=== PATIENT | male | born 1945 | race Caucasian/White ===

== ENCOUNTER 2019-06-05 07:41 | Outpatient (CLI) | payer MEDICARE, OTHER | END 2019-06-05 07:42 | disposition critical access hospital (66) | LOC: EMS 07:41 | PROVIDERS: ATTEND Surgery | DX: R41.0 Disorientation, unspecified (principal) | CPT/HCPCS: A0425; A0429 ==

== ENCOUNTER 2019-06-05 08:22 | Observation (INO) | payer MEDICARE, OTHER ==
[2019-06-05] MEDS ORDERED: SODIUM CHLORIDE 0.9% 1,000 ML IV ONE (08:39)
[2019-06-05] MEDS ORDERED: LORazepam 2 MG/ML VIAL IVP STA (08:40)
[2019-06-05] MEDS ORDERED: FOLIC ACID INJ 1 MG, THIAMINE INJ 100 MG, MAGNESIUM SULFATE 2 GM, MULTIVITAMIN 10 ML in... IV STA ×10 (08:41→08:42)
--- NOTE | 2019-06-05 08:43 | ED Physician Documentation ---
PD HPI ALTERED MENTAL STATUS - Stated complaint Stated Complaint: ETOH/MHE - Chief complaint Chief Complaint: General - History obtained from History obtained from: Patient, EMS - History of Present Illness Timing - onset: Today (Apparently was confused and reportedly found down on the sidewalk by neighbors who helped him into his house. He did seem confused and so they called EMS. Bruise on the left cheek. He denied headache. Seems a little shaky.) Timing - details: Still present, Other (unknown onset) Quality / character: Confused, Disoriented Associated symptoms: No: Fever, Headache, Focal weakness Contributing factors: Substance abuse (reportedly history of alcohol use regularly, goes to store on his own.). No: Anticoagulated Basline status: Alert and oriented X 3, Ambulatory (Reportedly has a normal baseline according to his sister and that he is able to walk to the store himself and by alcohol and groceries. He is not very good at taking care of himself at home and eats poorly. 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 Recently seen: Not recently seen Review of Systems Unable to obtain: Confused Constitutional: denies: Fever Cardiac: denies: Chest pain / pressure Respiratory: denies: Dyspnea GI: denies: Abdominal Pain, Vomiting, Diarrhea Neurologic: denies: Focal weakness, Headache Psychiatric: denies: Depressed PD PAST MEDICAL HISTORY - Past Medical History Cardiovascular: None Respiratory: None - Present Medications Home Medications: Ambulatory Orders Medication Instructions Recorded Confirmed No Known Home Medications 06/05/19 06/05/19 - Allergies Allergies/Adverse Reactions: Allergies Allergy/AdvReac Type Severity Reaction Status Date / Time No Known Drug Allergies Allergy Verified 06/05/19 08:35 - Living Situation Living Situation: reports: Alone, Other (He has 2 sisters that live nearby and try to help him out with groceries and cleaning the house.) Living Arrangement: reports: At home - Social History Does the pt smoke?: Yes Smoking Status: Current every day smoker Does the pt drink ETOH?: Yes ETOH Use: Other (He drinks very consistently. His sister says he will try to stop drinking intermittently and does get withdrawal and hallucinations. He has not been confused like this to this degree) Does the pt have substance abuse?: No - Family History Family history: reports: Non contributory PD ED PE NORMAL - General General: No acute distress. No: Alert and oriented X 3 (Alert and conversant. He had to think about his date of but did get it right. He initially did not know where he lives in which town but then could tell me his address and that he had lived there for 12 years. He is not sure of the day of the week but did realize it was May.), Well developed/nourished (somewhat frail) - HEENT HEENT: Ears normal, Pharynx benign, Other (There is no bruising on the head but there is some purple ecchymosis in the left periorbital area. No apparent injury to the eye.). No: Moist mucous membranes - Neck Neck: Supple, no meningeal sign, No bony TTP, No adenopathy - Cardiac Cardiac: RRR (regular but tachycardic), No murmur - Respiratory Respiratory: Clear bilaterally - Abdomen Abdomen: Soft, Non tender, Non distended, No organomegaly - Derm Derm: Normal color, Warm and dry - Extremities Extremities: Normal ROM s pain, No edema, No calf tenderness / cord - Neuro Neuro: No motor deficit, No sensory deficit, Normal speech, Other (He does have shakiness diffusely which seems more apparent when he is lifting up his arms.) Results - Vitals Vitals: Vital Signs - 24 hr 06/05/19 06/05/19 06/05/19 08:22 09:00 09:30 Temperature 37.0 C Heart Rate 108 H 97 96 Respiratory 15 18 19 Rate Blood Pressure 144/98 H 127/91 H 126/72 O2 Saturation 99 99 97 06/05/19 06/05/19 06/05/19 10:00 10:30 11:00 Temperature Heart Rate 96 103 H 94 Respiratory 25 H 21 19 Rate Blood Pressure 119/72 112/69 129/70 O2 Saturation 100 99 98 06/05/19 06/05/19 06/05/19 11:30 12:00 12:30 Temperature Heart Rate 94 91 87 Respiratory 18 17 15 Rate Blood Pressure 112/70 116/91 H 104/60 O2 Saturation 97 95 98 06/05/19 06/05/19 06/05/19 13:00 13:30 14:00 Temperature Heart Rate 87 86 85 Respiratory 16 16 18 Rate Blood Pressure 91/68 110/70 117/80 O2 Saturation 98 98 98 Oxygen O2 Source Room air - Labs Labs: Laboratory Tests 06/05/19 06/05/19 06/05/19 08:35 08:35 08:35 WBC 7.0 RBC 4.46 L Hgb 12.1 L Hct 37.4 L MCV 83.9 MCH 27.1 MCHC 32.4 RDW 19.1 H Plt Count 228 MPV 10.7 Neut # (Auto) 6.2 Lymph # (Auto) 0.2 L [place] # (Auto) 0.5 Eos # (Auto) 0.0 Baso # (Auto) 0.0 Absolute Nucleated RBC 0.00 Nucleated RBC % 0.0 Sodium 137 Potassium 3.7 Chloride 102 Carbon Dioxide 20 L Anion Gap 15.0 H BUN 29 H Creatinine 0.9 Estimated GFR (MDRD) 82 L Glucose 105 H Calcium 9.3 Magnesium 2.0 Total Bilirubin 1.8 H AST 55 H ALT 30 Alkaline Phosphatase 59 Total Creatine Kinase 344 H Total Protein 8.3 H Albumin 4.2 Globulin 4.1 Albumin/Globulin Ratio 1.0 Lipase 40 Vitamin B12 187 Urine Color Urine Clarity Urine pH Ur Specific [place] Urine Protein Urine Glucose (UA) Urine Ketones Urine Occult Blood Urine Nitrite Urine Bilirubin Urine Urobilinogen Ur Leukocyte Esterase Ur Microscopic Review Urine Culture Comments Salicylates < 6.0 Urine Opiates Screen Ur Oxycodone Screen Urine Methadone Screen Ur Propoxyphene Screen Acetaminophen < 10 L Ur Barbiturates Screen Ur Tricyclics Screen Ur Phencyclidine Scrn Ur Amphetamine Screen U Methamphetamines Scrn U Benzodiazepines Scrn Urine Cocaine Screen U Cannabinoids Screen Ethyl Alcohol < 5.0 06/05/19 11:53 WBC RBC Hgb Hct MCV MCH MCHC RDW Plt Count MPV Neut # (Auto) Lymph # (Auto) [place] # (Auto) Eos # (Auto) Baso # (Auto) Absolute Nucleated RBC Nucleated RBC % Sodium Potassium Chloride Carbon Dioxide Anion Gap BUN Creatinine Estimated GFR (MDRD) Glucose Calcium Magnesium Total Bilirubin AST ALT Alkaline Phosphatase Total Creatine Kinase Total Protein Albumin Globulin Albumin/Globulin Ratio Lipase Vitamin B12 Urine Color YELLOW Urine Clarity CLEAR Urine pH 5.0 Ur Specific [place] >=1.030 H Urine Protein NEGATIVE Urine Glucose (UA) NEGATIVE Urine Ketones 40 H Urine Occult Blood NEGATIVE Urine Nitrite NEGATIVE Urine Bilirubin NEGATIVE Urine Urobilinogen 0.2 (NORMAL) Ur Leukocyte Esterase NEGATIVE Ur Microscopic Review NOT INDICATED Urine Culture Comments NOT INDICATED Salicylates Urine Opiates Screen NEGATIVE Ur Oxycodone Screen NEGATIVE Urine Methadone Screen NEGATIVE Ur Propoxyphene Screen NEGATIVE Acetaminophen Ur Barbiturates Screen NEGATIVE Ur Tricyclics Screen NEGATIVE Ur Phencyclidine Scrn NEGATIVE Ur Amphetamine Screen NEGATIVE U Methamphetamines Scrn NEGATIVE U Benzodiazepines Scrn POSITIVE H Urine Cocaine Screen NEGATIVE U Cannabinoids Screen NEGATIVE Ethyl Alcohol PD MEDICAL DECISION MAKING - ED course Complexity details: re-evaluated patient (He still seems somewhat confused but with less shakiness and his heart rate is improved. Unable to tell me recent events and is confused on his date of and thinks it is . ), considered differential (He does have a history of alcoholism and fairly regular alcohol use. His sister talking with social work states that he has had hallucinations in the past with alcohol withdrawal. He does seem shaky and confused now and his alcohol level is 0. I think he is having some alcohol withdrawal delirium. He was given IV fluids for hydration and multivitamin and some Ativan for the shakiness.), d/w patient ED course: Presume some element of alcohol withdrawal delirium. He does have a bruise on his face with a normal face and head CT scan but consider some concussive effect as well. At this point he is still quite confused and disoriented to place and time. He does not seem safe for self-care and I would still consider other organic etiologies for the altered mental status. Vascular etiology is still consideration. Further evaluation may be warranted. Departure - Departure Disposition: ED Place in Observation Clinical Impression: Confusion, Dehydration Altered mental status Qualifiers: Altered mental status type: delirium Qualified Code(s): R41.0 - Disorientation, unspecified Condition: Stable Record reviewed to determine appropriate education?: Yes Discharge Date/Time: 06/05/19 14:58
[2019-06-05 08:55] LABS: BASOPHILS % (AUTO) 0.3 %; HGB - HEMOGLOBIN 12.1 g/dL (14.0-18.0); LYMPHOCYTES # (AUTO) 0.2 10^3/uL (1.5-3.5); MEAN CORPUSCULAR HEMOGLOBIN 27.1 pg (27.0-31.0); MEAN CORPUSCULAR HGB CONC 32.4 g/dL (32.0-36.0); MEAN CORPUSCULAR VOLUME 83.9 fL (80.0-94.0); MEAN PLATELET VOLUME 10.7 fL (7.4-11.4); MONOCYTES # (AUTO) 0.5 10^3/uL (0.0-1.0); MONOCYTES % (AUTO) 7.7 %; NEUTROPHILS # (AUTO) 6.2 10^3/uL (1.5-6.6); NEUTROPHILS % (AUTO) 88.4 %; PLT - PLATELET COUNT 228 10^3/uL (130-450); RED BLOOD COUNT 4.46 10^6/uL (4.70-6.10); RED CELL DISTRIBUTION WIDTH 19.1 % (12.0-15.0)
[2019-06-05 09:12] LABS: ACETAMINOPHEN < 10 ug/mL (10-30); ALBUMIN 4.2 g/dL (3.2-5.5); ALKALINE PHOSPHATASE 59 IU/L (42-121); ALT ALANINE AMINOTRANSFERASE 30 IU/L (10-60); AST ASPARTATE AMINOTRANSFERASE 55 IU/L (10-42); BILIRUBIN,TOTAL 1.8 mg/dL (0.2-1.0); BUN - BLOOD UREA NITROGEN 29 mg/dL (6-20); CALCIUM 9.3 mg/dL (8.5-10.3); CARBON DIOXIDE - CO2 20 mmol/L (21-32); CHLORIDE 102 mmol/L (101-111); CK- CREATINE KINASE 344 IU/L (22-269); CREATININE 0.9 mg/dL (0.6-1.2); GFR - MDRD 82 (>89); GLUCOSE 105 mg/dL (70-100); LIPASE 40 U/L (22-51); SALICYLATE < 6.0 mg/dL; SODIUM 137 mmol/L (135-145); TOTAL PROTEIN 8.3 g/dL (6.7-8.2)
--- NOTE | 2019-06-05 09:29 | CT Report ---
Reason: fall with facial/head injury Procedure Date: 06/05/2019 Accession Number: [id number] / [id number] Procedure: CT - HEAD WO CPT Code: Final Report FULL RESULT: EXAM: CT HEAD EXAM DATE: 06/05/2019 08:58 AM. CLINICAL HISTORY: Fall with facial/head injury. Confusion COMPARISON: None. TECHNIQUE: Multiaxial CT images were obtained from the foramen magnum to the vertex. Reformats: Sagittal and coronal. IV contrast: None. In accordance with CT protocol optimization, one or more of the following dose reduction techniques were utilized for this exam: automated exposure control, adjustment of mA and/or KV based on patient size, or use of iterative reconstructive technique. FINDINGS: Parenchyma: No intraparenchymal hemorrhage. No evidence of mass, midline shift, or CT findings of acute infarction. Simmons-white differentiation is distinct. Diffuse chronic microangiopathic white matter changes are evident. Extraaxial Spaces: Normal for age. No subdural or epidural collections identified. Ventricles: The ventricles and cortical sulci are enlarged, consistent with age-related tissue loss. Sinuses and orbits: Mild membrane thickening right mastoid air cells. Otherwise imaged paranasal sinuses, orbits, and mastoids show no significant abnormality. Bones: No evidence of fracture or calvarial defect. Other: None. IMPRESSION: Generalized age-related cortical atrophic changes without evidence of acute intracranial abnormality. RADIA
--- NOTE | 2019-06-05 09:33 | CT Report ---
Reason: fall, facial injury Procedure Date: 06/05/2019 Accession Number: [id number] / [id number] Procedure: CT - MAXILLOFACIAL WO CPT Code: Final Report FULL RESULT: EXAM: CT MAXILLOFACIAL WITHOUT CONTRAST EXAM DATE: 06/05/2019 08:58 AM. CLINICAL HISTORY: Fall, facial injury. Facial pain COMPARISONS: None. TECHNIQUE: Thin-section axial images were acquired of the face without contrast. Post-processing: Coronal and sagittal reformats. Other: None. In accordance with CT protocol optimization, one or more of the following dose reduction techniques were utilized for this exam: automated exposure control, adjustment of mA and/or KV based on patient size, or use of iterative reconstructive technique. FINDINGS: Soft Tissue: The infratemporal fossa and parapharyngeal spaces are unremarkable. Orbits: Symmetric and unremarkable. Bones: No fracture or bone lesion. Temporomandibular Joints: The temporomandibular joints are symmetric and normally located. Sinuses: Trace left maxillary and bilateral ethmoid membrane thickening Other: Right greater than left mastoid air cell membrane thickening. Increased soft tissue density right middle ear cavity. Degenerative change cervical spine. IMPRESSION: 1. No acute fracture. 2. Right greater than left mastoid air cell membrane thickening. Increased soft tissue density right middle ear cavity; suggest clinical correlation. 3. Degenerative change in the spine. 4. Trace membrane thickening paranasal sinuses. RADIA
[2019-06-05 12:34] LABS: MUDS CUTOFF CONCENTRATIONS CUTOFF CONC BELOW:
[2019-06-05 12:48] LABS: AMPHETAMINE SCREEN,URINE NEGATIVE (NEGATIVE); BENZODIAZEPINES SCREEN, URINE POSITIVE (NEGATIVE); BILIRUBIN,URINE NEGATIVE (NEGATIVE); CLARITY,URINE CLEAR (CLEAR); COCAINE SCREEN URINE NEGATIVE (NEGATIVE); GLUCOSE, URINE (UA) NEGATIVE (NEGATIVE); KETONES,URINE (UA) 40 mg/dL (NEGATIVE); LEUKOCYTE ESTERASE, URINE NEGATIVE (NEGATIVE); METHADONE SCREEN, URINE NEGATIVE (NEGATIVE); METHAMPHETAMINES SCREEN, URINE NEGATIVE (NEGATIVE); NITRITE,URINE NEGATIVE (NEGATIVE); OCCULT BLOOD,URINE NEGATIVE (NEGATIVE); OPIATE SCREEN, URINE NEGATIVE (NEGATIVE); OXYCODONE SCREEN, URINE NEGATIVE (NEGATIVE); PROPOXYPHENE SCREEN, URINE NEGATIVE (NEGATIVE); PROTEIN,URINE NEGATIVE (NEGATIVE); TRICYCLIC ANTIDEPRESSANT,URINE NEGATIVE (NEGATIVE); UROBILINOGEN,URINE 0.2 (NORMAL) E.U./dL (NORMAL)
[2019-06-05] MEDS ORDERED: ACETAMINOPHEN 325 MG TABLET PO PRN (14:14)
[2019-06-05] MEDS ORDERED: SODIUM CHLORIDE FLUSH 0.9% 10 ML SYRINGE IVP PRN (14:14)
[2019-06-05] MEDS ORDERED: ONDANSETRON 4 MG/2 ML VIAL IVP PRN (14:14)
[2019-06-05] MEDS ORDERED: ONDANSETRON ODT 4 MG TABLET TL PRN (14:14)
[2019-06-05] MEDS ORDERED: LORazepam 2 MG/ML VIAL IVP PRN (14:16)
--- NOTE | 2019-06-05 15:52 | HISTORY & PHYSICAL EXAMINATION ---
Chief Complaint - Chief Complaint Chief Complaint: found in sidewalk in front of house PMH/PSH - Past Medical History Cardiovascular: positive: None Respiratory: positive: None Social & Family Hx - Social History Does the pt smoke?: Yes Smoking Status: Former smoker Does the pt drink ETOH?: Yes ETOH Use: Other (He drinks very consistently. His sister says he will try to stop drinking intermittently and does get withdrawal and hallucinations. He has not been confused like this to this degree) Does the pt have substance abuse?: No Meds/Allgy - Home Medications Home Medications: Ambulatory Orders Medication Instructions Recorded Confirmed No Known Home Medications 06/05/19 06/05/19 - Allergies Allergies/Adverse Reactions: Allergies Allergy/AdvReac Type Severity Reaction Status Date / Time No Known Drug Allergies Allergy Verified 06/05/19 08:35 Exam - Vital Signs Vital Signs: Vital Signs x48h Temp Pulse Pulse Resp BP BP Pulse Ox 06/05/19 15:15 36.8 C 96 18 142/90 H 96 06/05/19 14:30 92 14 133/73 H 97 06/05/19 14:00 85 18 117/80 98 06/05/19 13:30 86 16 110/70 98 06/05/19 13:00 87 16 91/68 98 06/05/19 12:30 87 15 104/60 98 06/05/19 12:00 91 17 116/91 H 95 06/05/19 11:30 94 18 112/70 97 06/05/19 11:00 94 19 129/70 98 06/05/19 10:30 103 H 21 112/69 99 06/05/19 10:00 96 25 H 119/72 100 06/05/19 09:30 96 19 126/72 97 06/05/19 09:00 97 18 127/91 H 99 06/05/19 08:22 37.0 C 108 H 15 144/98 H 99 Results - Lab Results Fish Bones: 06/05/19 08:35 06/05/19 08:35 Other Lab Results: Lab Results x24hrs 06/05/19 06/05/19 06/05/19 Range/Units 11:53 08:35 08:35 WBC (4.8-10.8) x10^3/uL RBC (4.70-6.10) 10^6/uL Hgb (14.0-18.0) g/dL Hct (42.0-52.0) % MCV (80.0-94.0) fL MCH (27.0-31.0) pg MCHC (32.0-36.0) g/dL RDW (12.0-15.0) % Plt Count (130-450) 10^3/uL MPV (7.4-11.4) fL Neut # (Auto) (1.5-6.6) 10^3/uL Lymph # (Auto) (1.5-3.5) 10^3/uL [place] # (Auto) (0.0-1.0) 10^3/uL Eos # (Auto) (0.0-0.7) 10^3/uL Baso # (Auto) (0.0-0.1) 10^3/uL Absolute Nucleated RBC x10^3/uL Nucleated RBC % /100WBC Sodium 137 (135-145) mmol/L Potassium 3.7 (3.5-5.0) mmol/L Chloride 102 (101-111) mmol/L Carbon Dioxide 20 L (21-32) mmol/L Anion Gap 15.0 H (6-13) BUN 29 H (6-20) mg/dL Creatinine 0.9 (0.6-1.2) mg/dL Estimated GFR (MDRD) 82 L (>89) Glucose 105 H (70-100) mg/dL Calcium 9.3 (8.5-10.3) mg/dL Magnesium 2.0 (1.7-2.8) mg/dL Total Bilirubin 1.8 H (0.2-1.0) mg/dL AST 55 H (10-42) IU/L ALT 30 (10-60) IU/L Alkaline Phosphatase 59 (42-121) IU/L Total Creatine Kinase 344 H (22-269) IU/L Total Protein 8.3 H (6.7-8.2) g/dL Albumin 4.2 (3.2-5.5) g/dL Globulin 4.1 (2.1-4.2) g/dL Albumin/Globulin Ratio 1.0 (1.0-2.2) Lipase 40 (22-51) U/L Vitamin B12 187 (180-914) pg/mL Urine Color YELLOW Urine Clarity CLEAR (CLEAR) Urine pH 5.0 (5.0-7.5) PH Ur Specific [place] >=1.030 H (1.002-1.030) Urine Protein NEGATIVE (NEGATIVE) mg/dL Urine Glucose (UA) NEGATIVE (NEGATIVE) mg/dL Urine Ketones 40 H (NEGATIVE) mg/dL Urine Occult Blood NEGATIVE (NEGATIVE) Urine Nitrite NEGATIVE (NEGATIVE) Urine Bilirubin NEGATIVE (NEGATIVE) Urine Urobilinogen 0.2 (NORMAL) (NORMAL) E.U./dL Ur Leukocyte Esterase NEGATIVE (NEGATIVE) Ur Microscopic Review NOT INDICATED Urine Culture Comments NOT INDICATED Salicylates < 6.0 mg/dL Urine Opiates Screen NEGATIVE (NEGATIVE) Ur Oxycodone Screen NEGATIVE (NEGATIVE) Urine Methadone Screen NEGATIVE (NEGATIVE) Ur Propoxyphene Screen NEGATIVE (NEGATIVE) Acetaminophen < 10 L (10-30) ug/mL Ur Barbiturates Screen NEGATIVE (NEGATIVE) Ur Tricyclics Screen NEGATIVE (NEGATIVE) Ur Phencyclidine Scrn NEGATIVE (NEGATIVE) Ur Amphetamine Screen NEGATIVE (NEGATIVE) U Methamphetamines Scrn NEGATIVE (NEGATIVE) U Benzodiazepines Scrn POSITIVE H (NEGATIVE) Urine Cocaine Screen NEGATIVE (NEGATIVE) U Cannabinoids Screen NEGATIVE (NEGATIVE) Ethyl Alcohol < 5.0 mg/dL 06/05/19 Range/Units 08:35 WBC 7.0 (4.8-10.8) x10^3/uL RBC 4.46 L (4.70-6.10) 10^6/uL Hgb 12.1 L (14.0-18.0) g/dL Hct 37.4 L (42.0-52.0) % MCV 83.9 (80.0-94.0) fL MCH 27.1 (27.0-31.0) pg MCHC 32.4 (32.0-36.0) g/dL RDW 19.1 H (12.0-15.0) % Plt Count 228 (130-450) 10^3/uL MPV 10.7 (7.4-11.4) fL Neut # (Auto) 6.2 (1.5-6.6) 10^3/uL Lymph # (Auto) 0.2 L (1.5-3.5) 10^3/uL [place] # (Auto) 0.5 (0.0-1.0) 10^3/uL Eos # (Auto) 0.0 (0.0-0.7) 10^3/uL Baso # (Auto) 0.0 (0.0-0.1) 10^3/uL Absolute Nucleated RBC 0.00 x10^3/uL Nucleated RBC % 0.0 /100WBC Sodium (135-145) mmol/L Potassium (3.5-5.0) mmol/L Chloride (101-111) mmol/L Carbon Dioxide (21-32) mmol/L Anion Gap (6-13) BUN (6-20) mg/dL Creatinine (0.6-1.2) mg/dL Estimated GFR (MDRD) (>89) Glucose (70-100) mg/dL Calcium (8.5-10.3) mg/dL Magnesium (1.7-2.8) mg/dL Total Bilirubin (0.2-1.0) mg/dL AST (10-42) IU/L ALT (10-60) IU/L Alkaline Phosphatase (42-121) IU/L Total Creatine Kinase (22-269) IU/L Total Protein (6.7-8.2) g/dL Albumin (3.2-5.5) g/dL Globulin (2.1-4.2) g/dL Albumin/Globulin Ratio (1.0-2.2) Lipase (22-51) U/L Vitamin B12 (180-914) pg/mL Urine Color Urine Clarity (CLEAR) Urine pH (5.0-7.5) PH Ur Specific [place] (1.002-1.030) Urine Protein (NEGATIVE) mg/dL Urine Glucose (UA) (NEGATIVE) mg/dL Urine Ketones (NEGATIVE) mg/dL Urine Occult Blood (NEGATIVE) Urine Nitrite (NEGATIVE) Urine Bilirubin (NEGATIVE) Urine Urobilinogen (NORMAL) E.U./dL Ur Leukocyte Esterase (NEGATIVE) Ur Microscopic Review Urine Culture Comments Salicylates mg/dL Urine Opiates Screen (NEGATIVE) Ur Oxycodone Screen (NEGATIVE) Urine Methadone Screen (NEGATIVE) Ur Propoxyphene Screen (NEGATIVE) Acetaminophen (10-30) ug/mL Ur Barbiturates Screen (NEGATIVE) Ur Tricyclics Screen (NEGATIVE) Ur Phencyclidine Scrn (NEGATIVE) Ur Amphetamine Screen (NEGATIVE) U Methamphetamines Scrn (NEGATIVE) U Benzodiazepines Scrn (NEGATIVE) Urine Cocaine Screen (NEGATIVE) U Cannabinoids Screen (NEGATIVE) Ethyl Alcohol mg/dL CP/CHF Plan - Plan Patient Problems: All Active Problems Altered mental status (Acute) Confusion (Acute) Dehydration (Acute)
--- NOTE | 2019-06-05 15:56 | HISTORY & PHYSICAL EXAMINATION ---
Chief Complaint - Chief Complaint Chief Complaint: found down on front sidewalk History of Present Illness - Admitted From Admitted From:: home/ER - History Obtained From Records Reviewed: [facility] History obtained from: Patient and daughters Exam Limitations: none - History of Present Illness HPI Comment/Other: He is a 74-year-old man who states that he may have high blood pressure discovered in his dentist office, but he never takes medications for it. He is lived on [place] off and on. [place] between [facility] and [place]. He moved to the [place] to be close to his mother and sister. His sister is still a few 100 feet away from his house. Mom, unfortunately, is . He is an alcoholic. He is vague about how much he drinks and does not want to share that amount with me yet. His sister was at the bedside in the emergency room and reports that he does walk to the grocery store. Buys his alcohol and groceries there. For the last few days he has felt unusually tired and shaky. Very sleepy. But he cannot tell me why. No fever, chills. His torso aches from neck to groin. He has had no appetite. But he denies Reiger's. There is no change in the color of his urine. He denies urgency, frequency. He denies any vomiting, but he has been having diarrhea. He is lost his appetite. Thinks he is lost some weight but is not sure. The only way he can tell is that his clothes are loose on him especially his pants. He does not remember what happened. He thinks he went outside to get the paper in the next thing he knows he is on the sidewalk in front of his house. He does not remember this. He really remembers just being in the emergency room. Per the ER records, he was confused. The neighbors tried to get him into the house. They could not get him up. So the neighbors called EMS. In the emergency room his confusion is no longer present. He is alert and oriented. But he is shaky. Does not feel well. In the emergency room temperature was 37, pulse 108, blood pressure 144/98. 99% on room air. Tremulous elderly gentleman with a contusion on his left cheek, and no other pertinent exam findings. His CMP showed an anion gap of 15, BUN 29, random glucose 105, total bili 1.8, AST 55. CK 344. Vitamin B12 187. White cell count is 7, hemoglobin 12.1 and MCV is 83.9. Urinalysis had ketonuria but was otherwise without any abnormal constituents. Toxicology had no salicylates, acetaminophen or alcohol on board. Positive for benzodiazepines and negative for everything else. He is placed in observation History - Past Medical History Cardiovascular: reports: Hypertension Respiratory: reports: None Endocrine/Autoimmune: reports: None GI: reports: None : reports: Other (Urinary obstruction in the remote past. He says he was seen for the obstruction here at this hospital in the last 3 to 4 years. We have no record of that going back to 2012) HEENT: reports: None Psych: reports: None Musculoskeletal: reports: None MRSA Hx?: No - Past Surgical History General: reports: Appendectomy Ortho: reports: Other (Left wrist fracture in the remote past) HEENT: reports: Tonsil/Adenoidectomy - Family & Social History Family History Comment/Other: Mom at age 94 of old age. Dad at age 73 from what he thinks is lung cancer. He also had a heart transplant. He has 2 sisters and 1 brother. He regards them is healthy. 3 children. 2 daughters and a son with the son also having problems with alcoholism. Living arrangement: At home Living Situation: Alone, Other (He has 2 sisters that live nearby and try to help him out with groceries and cleaning the house.) Social History Notes: He was born and raised in [place]. 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 Sometimes in [place] sometimes in [place]. Years ago when he retired [place] Mom is and sister is a neighbor. He was to his first twice. her then remarried her. a second time to a different woman. He has 3 children with his first . He started smoking at the age of 16 and smoked 1 pack/day till age 26. Alcohol abuse is stated but he has not shared with me how much or what. - Substance History Dependence: Experiences withdrawal or developed tolerances: Alcohol Dependence Issues: Intoxication, Delirium, Delusions, Hallucinations, Perceptual Disturbance - POLST Patient has POLST: No POLST Status: DNR Meds/Allgy - Home Medications Home Medications: Ambulatory Orders Medication Instructions Recorded Confirmed No Known Home Medications 06/05/19 06/05/19 - Allergies Allergies/Adverse Reactions: Allergies Allergy/AdvReac Type Severity Reaction Status Date / Time bee venom protein (honey bee) AdvReac Unknown Verified 06/05/19 16:00 cat dander AdvReac Respiratory Verified 06/05/19 16:01 Review of Systems - Constitutional Constitutional: reports: Fatigue, Malaise, Weakness, Poor appetite. denies: Fever, Chills, Diaphoresis, Night sweats - Eyes Eyes: reports: Vision loss. denies: Pain, Irritation, Amaurosis, Blurred vision, Field loss, Dipolpia - Ears, Nose & Throat Ears, Nose & Throat: reports: Hearing loss. denies: Hearing aids, Tinnitus, Vertigo, Nasal obstruction, Sore throat, Hoarseness - Cardiovascular Cariovascular: reports: Decr. exercise tolerance. denies: Irregular heart rate, Palpitations, Chest pain, Edema, Syncope, Exertional dyspnea - Respiratory Respiratory: reports: Cough, SOB with exertion. denies: Sputum production, Wheezing, Snoring, Orthopnea, SOB at rest - Gastrointestinal Gastrointestinal: reports: Abdominal distention, Diarrhea. denies: Const ipation, Black stools, Bloody stools, Nausea - Genitourinary Genitourinary: reports: Frequency, Urgency, Nocturia. denies: Dysuria, Hematuria, Incontinence, Flank pain - Musculoskeletal Musculoskeletal: reports: Muscle aches, Stiffness, Joint pain. denies: Muscle pain, Back pain, Muscle weakness, Gout - Integumentary Integumentary: denies: Rash, Pruritis, Lesions, Dryness, Lumps, Acne - Neurological Neurological: reports: General weakness. denies: Focal weakness, Headache, Dizziness, Memory problems, Pre-existing deficit Prior Level of Functionality: He is independent and that he pays for his own groceries, does his own cooking but sister reports he is doing a very poor job of it. He does not drive and wa lks to the grocery store from his house. He has 2 daughters that live in [place] and are in the room with him right now. Exam - Vital Signs Reviewed Vital Signs: Yes Vital Signs: Vital Signs x48h Temp Pulse Pulse Resp BP BP Pulse Ox 06/05/19 15:15 36.8 C 96 18 142/90 H 96 06/05/19 14:30 92 14 133/73 H 97 06/05/19 14:00 85 18 117/80 98 06/05/19 13:30 86 16 110/70 98 06/05/19 13:00 87 16 91/68 98 06/05/19 12:30 87 15 104/60 98 06/05/19 12:00 91 17 116/91 H 95 06/05/19 11:30 94 18 112/70 97 06/05/19 11:00 94 19 129/70 98 06/05/19 10:30 103 H 21 112/69 99 06/05/19 10:00 96 25 H 119/72 100 06/05/19 09:30 96 19 126/72 97 06/05/19 09:00 97 18 127/91 H 99 06/05/19 08:22 37.0 C 108 H 15 144/98 H 99 - Physical Exam General Appearance: positive: No acute distress, Alert, Other (Tremulous white male who has susana, flushed facial skin, abrasion and bruise across the left cheekbone, disheveled hair and unshaven.) Eyes Bilateral: positive: PERRL, EOMI ENT: positive: Dry mucous membranes, Other (poor dentition w caries and old food on teeth.R TM has a rupture of anterior lower pole. Wax in canal. CT reports soft tissue density but none seen.) Neck: positive: No JVD, Lymphadenopathy (R) (shotty), Lymphadenopathy (L) (shotty). negative: Stiff neck, Carotid bruit Respiratory: positive: Chest non-tender, No respiratory distress, Rhonchi (once that clear w a cough). negative: Wheezes, Rales Cardiovascular: positive: Regular rate & rhythm. negative: Systolic murmur, Gallop/S4, Friction rub Peripheral Pulses: positive: 1+ Abdomen: positive: Non-tender, No organomegaly, Nml bowel sounds, No distention Skin: positive: Warm, Dry, Diaphoresis. negative: Pallor Extremities: positive: Non-tender, No pedal edema Neurologic/Psychiatric: positive: Oriented x3, CN's nml (2-12), Motor nml (except tremulous voice, and hands) Conclusion/Plan - Problem List (1) Alcohol withdrawal delirium Conclusion/Plan: In a gentleman who drinks an unknown amount. His family is in the room with him. He is very hesitant to discuss how much she drinks in front of them. They explained to him that they know he drinks, and they do not care how much she drinks, they just want him to stop. It is an honest conversation and that he states that he doubts he ever will. He has no interest in doing Alcoholics Anonymous, rehab, etc. Daughter did ask about him doing detox, and I explained that he has that choice to do that on his own. I could give him the number of the facility but it would need to be his choice. Plan: Observation status Banana bag Monitor with CIWA protocol and use as needed benzodiazepines (2) Dehydration Conclusion/Plan: as seen on BUN and oral mucosa. The bannana bag at 100 cc/hr should take care of that - Lab Results Lab results reviewed: Yes Fish Bones: 06/05/19 08:35 06/05/19 08:35 - Diagnostic Imaging Results Diagnostic Imaging Results Comments: CT MAXILLOFACIAL WITHOUT CONTRAST EXAM DATE: 06/05/2019 08:58 AM. CLINICAL HISTORY: Fall, facial injury. Facial pain COMPARISONS: None. TECHNIQUE: Thin-section axial images were acquired of the face without contrast. Post-processing: Coronal and sagittal reformats. Other: None. In accordance with CT protocol optimization, one or more of the following dose reduction techniques were utilized for this exam: automated exposure control, adjustment of mA and/or KV based on patient size, or use of iterative reconstructive technique. FINDINGS: Soft Tissue: The infratemporal fossa and parapharyngeal spaces are unremarkable. Orbits: Symmetric and unremarkable. Bones: No fracture or bone lesion. Temporomandibular Joints: The temporomandibular joints are symmetric and normally located. Sinuses: Trace left maxillary and bilateral ethmoid membrane thickening Other: Right greater than left mastoid air cell membrane thickening. Increased soft tissue density right middle ear cavity. Degenerative change cervical spine. IMPRESSION: 1. No acute fracture. 2. Right greater than left mastoid air cell membrane thickening. Increased soft tissue density right middle ear cavity; suggest clinical correlation. 3. Degenerative change in the spine. 4. Trace membrane thickening paranasal sinuses. EXAM: [id number] CT/HEADWO ([id number]) Reason: fall with facial/head injury Procedure Date: 06/05/2019 Accession Number: [id number] / [id number] Procedure: CT - HEAD WO CPT Code: Final Report FULL RESULT: EXAM: CT HEAD EXAM DATE: 06/05/2019 08:58 AM. CLINICAL HISTORY: Fall with facial/head injury. Confusion COMPARISON: None. TECHNIQUE: Multiaxial CT images were obtained from the foramen magnum to the vertex. Reformats: Sagittal and coronal. IV contrast: None. In accordance with CT protocol optimization, one or more of the following dose reduction techniques were utilized for this exam: automated exposure control, adjustment of mA and/or KV based on patient size, or use of iterative reconstructive technique. FINDINGS: Parenchyma: No intraparenchymal hemorrhage. No evidence of mass, midline shift, or CT findings of acute infarction. Simmons-white differentiation is distinct. Diffuse chronic microangiopathic white matter changes are evident. Extraaxial Spaces: Normal for age. No subdural or epidural collections identified. Ventricles: The ventricles and cortical sulci are enlarged, consistent with age-related tissue loss. Sinuses and orbits: Mild membrane thickening right mastoid air cells. Otherwise imaged paranasal sinuses, orbits, and mastoids show no significant abnormality. Bones: No evidence of fracture or calvarial defect. Other: None. IMPRESSION: Generalized age-related cortical atrophic changes without evidence of acute intracranial abnormality. - EKG Results EKG Interpreted Independently: No Core Measures - Anticipated LOS I expect patient to be DC'd or transferred within 96 hours.: Yes - DVT/VTE - Prophylaxis VTE/DVT Device ordered at admit?: Yes
[2019-06-05 16:25] LABS: INR 1.2 (0.8-1.2); PT - PROTHROMBIN TIME 13.6 secs (9.9-12.6)
[2019-06-05] MEDS: MULTIVITAMIN 10 ML, THIAMINE INJ 100 MG, FOLIC ACID INJ 1 MG in SODIUM CHLORIDE 0.9% 1,... IV SCH (17:14)
[2019-06-05] MEDS: SODIUM CHLORIDE FLUSH 0.9% 10 ML SYRINGE IVP SCH ×2 (17:14→23:47)
--- NOTE | 2019-06-05 20:21 | Ultrasound Report ---
Reason: abd distension and lft up, wt loss Procedure Date: 06/05/2019 Accession Number: [id number] / [id number] Procedure: US - Abdomen Complete CPT Code: Final Report FULL RESULT: EXAM: ABDOMEN ULTRASOUND EXAM DATE: 06/05/2019 05:51 PM. CLINICAL HISTORY: Abd distension and lft up, wt loss. COMPARISON: None. TECHNIQUE: Real-time scanning was performed with static images obtained. Difficult exam due to body habitus and motion. FINDINGS: Liver: Diffusely echogenic. No definite mass. Normal overall size, 14.7 cm. Main portal vein flow: Hepatopetal. Gallbladder: Normal. No stones, wall thickening, or sonographic Chávez's sign. Biliary System: Common bile duct measures 4 mm. No intrahepatic or extrahepatic ductal dilatation. Pancreas: Not well seen. Kidneys: Right: 11.9 cm longitudinally. Normal. No contour-deforming mass, stones, or hydronephrosis. Left: 11.6 cm longitudinally. Normal. No contour-deforming mass, stones, or hydronephrosis. Spleen: 11.3 cm. Normal in size and echotexture. Aorta and Inferior Vena Cava: Unremarkable IVC. Possible dilation of proximal aorta measuring 3.6 cm, not well seen. Other: None. IMPRESSION: 1. Poor visualization of proximal aorta, but possible aneurysm measuring 3.6 cm. 2. Fatty liver. RADIA
[2019-06-06 05:50] LABS: BASOPHILS % (AUTO) 0.5 %; EOSINOPHILS # (AUTO) 0.2 10^3/uL (0.0-0.7); EOSINOPHILS % (AUTO) 5.1 %; HGB - HEMOGLOBIN 9.6 g/dL (14.0-18.0); LYMPHOCYTES # (AUTO) 0.5 10^3/uL (1.5-3.5); LYMPHOCYTES % (AUTO) 11.7 %; MEAN CORPUSCULAR HGB CONC 30.8 g/dL (32.0-36.0); MEAN CORPUSCULAR VOLUME 84.6 fL (80.0-94.0); MEAN PLATELET VOLUME 9.9 fL (7.4-11.4); MONOCYTES # (AUTO) 0.6 10^3/uL (0.0-1.0); MONOCYTES % (AUTO) 15.8 %; NEUTROPHILS # (AUTO) 2.6 10^3/uL (1.5-6.6); NEUTROPHILS % (AUTO) 66.6 %; PLT - PLATELET COUNT 164 10^3/uL (130-450); RED BLOOD COUNT 3.69 10^6/uL (4.70-6.10); RED CELL DISTRIBUTION WIDTH 19.8 % (12.0-15.0); WHITE BLOOD COUNT 3.9 x10^3/uL (4.8-10.8)
[2019-06-06 06:00] LABS: ALBUMIN 3.1 g/dL (3.2-5.5); BILIRUBIN,TOTAL 1.1 mg/dL (0.2-1.0); CALCIUM 8.4 mg/dL (8.5-10.3); CREATININE 0.6 mg/dL (0.6-1.2); MAGNESIUM 2.1 mg/dL (1.7-2.8); PHOSPHORUS 2.7 mg/dL (2.5-4.6); TOTAL PROTEIN 6.1 g/dL (6.7-8.2)
--- NOTE | 2019-06-06 08:05 | Discharge Plan ---
Discharge Plan Problem Reviewed?: Yes Disposition: Home, Self Care Condition: Stable Prescriptions: Folic Acid 1 mg PO DAILY #100 tablet Thiamine [Vitamin B-1] 100 mg PO DAILY #100 tablet Diet: Regular Activity Restrictions: Activity as Tolerated Shower Restrictions: No Driving Restrictions: Yes (no driving if you have had any alcohol) Health Concerns: . You were brought to the emergency room because you were weak, confused, and had been found On the ground in front of your house. We found through speaking to your family that you have alcoholism. We think that you were going through mild withdrawal and you were confused, hallucinating, with mild tremulousness. You also were mildly dehydrated. Your liver is affected by your drinking was mild elevation of liver function studies. Plan of Treatment: CT scan of the head did not show any strokes. Just signs of aging. CT of the face did not show any broken facial bones Chest x-ray was negative for pneumonia You received IV fluids to include a lot of B12 and folate because alcoholism will deplete that absorption and caused your brain to have memory loss and your bone marrow to have anemia. Care Goals: 1. We have asked you to please stop drinking. You have been very honest with us and said that you most likely will not. We still strongly encourage you to find some type of resources such as inpatient rehabilitation, Alcoholics Anonymous, or any therapy group that would help you stop drinking. 2. Please do not consume alcohol and then drive 3. Please see a primary care provider. You told us that you do not have a regular doctor. We would ask you to establish yourself with a local physician. The nearest physician for you would be in [place]. [facility] is taking new patients. Assessment: Patient understands care goals and will try to follow through No Smoking: If you smoke, Please STOP! Call for help.
--- NOTE | 2019-06-06 08:13 | DISCHARGE SUMMARY ---
"Discharge Summary Admit Date: 06/05/19 Discharge Date: 06/06/19 Discharging Provider: Haylee King MD Primary Care Provider: No PCP Code Status: Do Not Attempt Resuscitation Condition at Discharge: Stable Discharge Disposition: 01 Home, Self Care - DIAGNOSES Discharge Diagnoses with Status of Each Condition: 1. Alcohol withdrawal 2. dehydration - HPI History of Present Illness: He is a 74-year-old man who states that he may have high blood pressure discovered in his dentist office, but he never takes medications for it. He is lived on [address] off and on. [place] between [facility] and [place]. He moved to the [place] to be close to his mother and sister. His sister is still a few 100 feet away from his house. Mom, unfortunately, is . He is an alcoholic. He is vague about how much he drinks and does not want to share that amount with me yet. His sister was at the bedside in the emergency room and reports that he does walk to the grocery store. Buys his alcohol and groceries there. For the last few days he has felt unusually tired and shaky. Very sleepy. But he cannot tell me why. No fever, chills. His torso aches from neck to groin. He has had no appetite. But he denies rigors. There is no change in the color of his urine. He denies urgency, frequency. He denies any vomiting, but he has been having diarrhea. He is lost his appetite. Thinks he is lost some weight but is not sure. The only way he can tell is that his clothes are loose on him especially his pants. He does not remember what happened. He thinks he went outside to get the paper in the next thing he knows he is on the sidewalk in front of his house. He does not remember this. He really remembers just being in the emergency room. Per the ER records, he was confused. The neighbors tried to get him into the house. They could not get him up. So the neighbors called EMS. In the emergency room his confusion is no longer present. He is alert and oriented. But he is shaky. Does not feel well. In the emergency room temperature was 37, pulse 108, blood pressure 144/98. 99% on room air. Tremulous elderly gentleman with a contusion on his left cheek, an d no other pertinent exam findings. His CMP showed an anion gap of 15, BUN 29, random glucose 105, total bili 1.8, AST 55. CK 344. Vitamin B12 187. White cell count is 7, hemoglobin 12.1 and MCV is 83.9. Urinalysis had ketonuria but was otherwise without any abnormal constituents. Toxicology had no salicylates, acetaminophen or alcohol on board. Positive for benzodiazepines and negative for everything else. He is placed in observation - Past Medical History Cardiovascular: reports: Hypertension Respiratory: reports: None Endocrine/Autoimmune: reports: None GI: reports: None : reports: Other (Urinary obstruction in the remote past. He says he was seen for the obstruction here at this hospital in the last 3 to 4 years. We have no record of that going back to 2012) HEENT: reports: None Psych: reports: None Musculoskeletal: reports: None - CONSULTS | PROCEDURES Procedures: 1. Head CT. Ventricles and cortical sulci are enlarged, consistent with age- related tissue loss. Chronic microangiopathic white matter changes that are diffuse. No fracture of the skull. No acute changes. 2. Facial bone CT without fracture or bone lesion. Right greater than left mastoid air cell membrane thickening. Increased soft tissue density right middle ear cavity. 3. Abdominal ultrasound poor visualization of proximal aorta, possible aneurysm measuring 3.6 cm. Fatty liver. - HOSPITAL COURSE Hospital Course: Overnight, the patient was placed on telemetry. Tremors gradually resolved. He was placed on alcohol withdrawal protocol but he never needed Ativan, beta- yemi. The only time he received Ativan was in the emergency room with his initial intake. Since withdrawal did not seem to be severe, he was discharged in stable condition. Temperature was 37 3, pulse 72, blood pressure 119/75 respirations 16 and 95% on room air. He is an alert elderly gentleman who is 5 feet 8 inches tall and weighs 67.5 kg. ENT examination is remarkable for a black eye along the zygomatic arch into the corner of his left eye. Neck has shotty adenopathy but is not stiff and without bruits. Lungs are clear to auscultation without any increased respiratory effort or respiratory distress. He has a regular rate and rhythm. The abdomen is soft, nontender, benign. I do not feel a liver edge. His ultrasound shows fatty liver. I do not palpate the aneurysm described on ultrasound. Extremities are warm, no clubbing cyanosis or edema. He gets up and ambulates in the room with a little bit of unsteadiness and that he uses the furniture for touch balance at times but does not need a cane or a walker. He is asked to please stop drinking. Do not drink and drive. He is asked to find support to help him stop drinking whether is inpatient rehab, Alcoholics Anonymous. He is also asked to establish himself with a primary care provider. He is asked to address the aneurysm with his new provider. He did have an episode of urinary retension when I reviewed his radiology studies and that dated to 2010 but he feels that isn't problem now. He has no medications at home. I am asking him to take thiamine and folate. - ALLERGIES Allergies/Adverse Reactions: Allergies Allergy/AdvReac Type Severity Reaction Status Date / Time bee venom protein (honey bee) AdvReac Unknown Verified 06/05/19 16:00 cat dander AdvReac Respiratory Verified 06/05/19 16:01 - MEDICATIONS Home Medications: Ambulatory Orders Medication Instructions Recorded Confirmed Folic Acid 1 mg PO DAILY #100 tablet 06/06/19 Thiamine [Vitamin B-1] 100 mg PO DAILY #100 tablet 06/06/19 - LABS Result Diagrams: 06/06/19 05:35 06/06/19 05:35"
[2019-06-06 08:36] VITALS: BP 111/62
[2019-06-06] MEDS ORDERED: MULTIVITAMIN 10 ML, THIAMINE INJ 100 MG, FOLIC ACID INJ 1 MG in SODIUM CHLORIDE 0.9% 1,... IV SCH (09:00)
[2019-06-06] MEDS: SODIUM CHLORIDE FLUSH 0.9% 10 ML SYRINGE IVP SCH (09:07)
[2019-06-06] MEDS: MULTIVITAMIN 10 ML, THIAMINE INJ 100 MG, FOLIC ACID INJ 1 MG in SODIUM CHLORIDE 0.9% 1,... IV SCH (09:07)
--- NOTE | 2019-06-06 09:15 | PHARMACY PROGRESS NOTE ---
- Best Possible Medication History Admit Date and Time: 06/05/19 1414 Processed by: Pharmacy Medication History completed: Yes Patient Interview: Completed (Patient reports not being on any medications at home, reports no PCP (and none listed in profile). External med history report did not yield any medication fill history) Secondary Source(s): Insurance records (yielded no medications) As the person ultimately responsible for medication therapy, providers are able to order a medication from an existing home medication list in [facility] via the "Reconcile Routine" prior to Confirmation of that medication by network support manager. Such practice is discouraged except when the physician, in their clinical judgment, deems that a medical need exists for a medication without regard to previous use.
== END 2019-06-06 13:19 | disposition home or self-care (01) ==
LOC: EDUNIT# → EDBD → ED 08:22 → MS2 14:14
PROVIDERS: ADMIT Specialist; ATTEND Specialist
DX: F10.231 Alcohol dependence with withdrawal delirium (principal); Y90.0 Blood alcohol level of less than 20 mg/100 ml; S00.12XA Contusion of left eyelid and periocular area, initial encounter; W19.XXXA Unspecified fall, initial encounter; Y92.480 Sidewalk as the place of occurrence of the external cause; E86.0 Dehydration; R19.7 Diarrhea, unspecified; D64.89 Other specified anemias; K76.0 Fatty (change of) liver, not elsewhere classified; Z66 Do not resuscitate; Z87.891 Personal history of nicotine dependence
CPT/HCPCS: 36415; 70450; 70486; 76700; 80053; 81003; 81599; 82550; 82607; 82977; 83690; 83735; 84100; 85025; 85610; 96365; 96366; 96375; 99285; G0378; J2060; J3411; 80306; 80307; 80320; 80329; 81001; 86780; 87086

== ENCOUNTER 2020-10-21 04:51 | Outpatient (CLI) | payer MEDICARE | END 2020-10-21 04:52 | disposition EMS.NT | LOC: EMS 04:51 | DX: S09.92XA Unspecified injury of nose, initial encounter (principal); W18.30XA Fall on same level, unspecified, initial encounter; Y93.89 Activity, other specified; Y92.009 Unspecified place in unspecified non-institutional (private) residence as the place of occurrence of the external cause ==

== ENCOUNTER 2022-01-12 11:38 | Outpatient (CLI) | payer MEDICARE | END 2022-01-12 11:39 | disposition EMS.NT | LOC: EMS 11:38 | DX: R41.0 Disorientation, unspecified (principal); R61 Generalized hyperhidrosis ==

== ENCOUNTER 2022-09-22 07:44 | Outpatient (CLI) | payer MEDICARE | END 2022-09-22 07:45 | disposition critical access hospital (66) | LOC: EMS 07:44 | DX: R41.0 Disorientation, unspecified (principal); R45.1 Restlessness and agitation | CPT/HCPCS: A0425; A0427 ==

== ENCOUNTER 2022-09-22 08:24 | Inpatient (IN) | payer MEDICARE ==
[2022-09-22] MEDS ORDERED: SODIUM CHLORIDE 0.9% 1,000 ML IV STA (08:35)
[2022-09-22] MEDS ORDERED: THIAMINE INJ 100 MG in SODIUM CHLORIDE 0.9% 50 ML IV STA (08:37)
[2022-09-22 08:53] LABS: BASOPHILS # (AUTO) 0.1 10^3/uL (0.0-0.1); BASOPHILS % (AUTO) 0.4 %; HCT - HEMATOCRIT 44.5 % (42.0-52.0); HGB - HEMOGLOBIN 15.2 g/dL (14.0-18.0); LYMPHOCYTES # (AUTO) 0.6 10^3/uL (1.5-3.5); LYMPHOCYTES % (AUTO) 3.9 %; MEAN CORPUSCULAR HEMOGLOBIN 32.3 pg (27.0-31.0); MEAN CORPUSCULAR HGB CONC 34.2 g/dL (32.0-36.0); MEAN CORPUSCULAR VOLUME 94.7 fL (80.0-94.0); MEAN PLATELET VOLUME 9.9 fL (7.4-11.4); MONOCYTES # (AUTO) 0.9 10^3/uL (0.0-1.0); MONOCYTES % (AUTO) 6.1 %; NEUTROPHILS # (AUTO) 12.5 10^3/uL (1.5-6.6); NEUTROPHILS % (AUTO) 89.2 %; PLT - PLATELET COUNT 165 10^3/uL (130-450); RED CELL DISTRIBUTION WIDTH 13.7 % (12.0-15.0)
[2022-09-22 09:02] LABS: KETONES, SERUM (ACETEST) NEGATIVE (NEGATIVE)
[2022-09-22] MEDS ORDERED: LORazepam 2 MG/ML VIAL IVP STA ×2 (09:11→11:17)
[2022-09-22 09:13] LABS: ACETAMINOPHEN < 10 ug/mL (10-30); ALBUMIN 3.9 g/dL (3.2-5.5); ALBUMIN/GLOBULIN RATIO 1.1 (1.0-2.2); ALKALINE PHOSPHATASE 66 IU/L (42-121); ALT ALANINE AMINOTRANSFERASE 24 IU/L (10-60); AST ASPARTATE AMINOTRANSFERASE 46 IU/L (10-42); BILIRUBIN,TOTAL 0.6 mg/dL (0.2-1.0); BUN - BLOOD UREA NITROGEN 29 mg/dL (6-20); CALCIUM 8.7 mg/dL (8.5-10.3); CARBON DIOXIDE - CO2 16 mmol/L (21-32); CHLORIDE 104 mmol/L (101-111); CK- CREATINE KINASE 915 IU/L (22-269); CREATININE 0.9 mg/dL (0.6-1.2); ETOH - ETHANOL 55.8 mg/dL; GFR - MDRD 82 (>89); GLUCOSE 146 mg/dL (70-100); LIPASE 37 U/L (22-51); MAGNESIUM 2.4 mg/dL (1.7-2.8); POTASSIUM 3.2 mmol/L (3.5-5.0); SALICYLATE < 6.0 mg/dL; SODIUM 136 mmol/L (135-145); TOTAL PROTEIN 7.3 g/dL (6.7-8.2)
[2022-09-22 09:36] LABS: MUDS CUTOFF CONCENTRATIONS CUTOFF CONC BELOW:
[2022-09-22] MEDS ORDERED: POTASSIUM CHLOR 10 MEQ/100 ML 10 MEQ/100 ML BAG IV ONE (09:39)
[2022-09-22 09:40] LABS: BILIRUBIN,URINE NEGATIVE (NEGATIVE); GLUCOSE, URINE (UA) NEGATIVE (NEGATIVE); KETONES,URINE (UA) TRACE mg/dL (NEGATIVE); LEUKOCYTE ESTERASE, URINE NEGATIVE (NEGATIVE); NITRITE,URINE NEGATIVE (NEGATIVE); OCCULT BLOOD,URINE SMALL (NEGATIVE); PH,URINE 5.5 PH (5.0-7.5); PROTEIN,URINE NEGATIVE (NEGATIVE); UROBILINOGEN,URINE 0.2 (NORMAL) E.U./dL (NORMAL)
[2022-09-22 09:43] LABS: CLARITY,URINE CLEAR (CLEAR)
[2022-09-22 09:47] LABS: BACTERIA,URINE None Seen /HPF (None Seen); CASTS, URINE 3-5 Hyaline Casts /LPF; RBC,URINE 0-5 /HPF (0-5); SQUAMOUS EPITHELIAL CELL,UR NONE SEEN (<= Few); WBC,URINE 0-3 /HPF (0-3)
[2022-09-22 09:48] LABS: AMPHETAMINE SCREEN,URINE NEGATIVE (NEGATIVE); BARBITURATE SCREEN,UR NEGATIVE (NEGATIVE); BENZODIAZEPINES SCREEN, URINE NEGATIVE (NEGATIVE); COCAINE SCREEN URINE NEGATIVE (NEGATIVE); METHADONE SCREEN, URINE NEGATIVE (NEGATIVE); METHAMPHETAMINES SCREEN, URINE NEGATIVE (NEGATIVE); OPIATE SCREEN, URINE NEGATIVE (NEGATIVE); OXYCODONE SCREEN, URINE NEGATIVE (NEGATIVE); PROPOXYPHENE SCREEN, URINE NEGATIVE (NEGATIVE); THC CANNABINOID SCREEN, URINE NEGATIVE (NEGATIVE); TRICYCLIC ANTIDEPRESSANT,URINE NEGATIVE (NEGATIVE)
--- NOTE | 2022-09-22 10:09 | CT Report ---
PROCEDURE: HEAD WO INDICATIONS: altered mental status TECHNIQUE: Noncontrast 4.5 mm thick angled axial sections acquired from the foramen magnum to the vertex. For r adiation dose reduction, the following was used: automated exposure control, adjustment of mA and/or kV according to patient size. COMPARISON: 06/05/2019 FINDINGS: CSF spaces: Basal cisterns are patent. No extra-axial fluid collections. Diffuse symmetric prominen ce of the ventricles and sulci suggestive of cerebral volume loss. Brain: No midline shift. No intracranial masses or hemorrhage. Simmons-white matter interface is norm al. Skull and face: Calvarium and visualized facial bones are intact, without suspicious lesions. Sinuses: Bilateral mastoid effusions nonspecific IMPRESSION: No acute intracranial pathology Reviewed by: Paul Whitney MD on 09/22/2022 9:33 AM PDT Approved by: Paul Whitney MD on 09/22/2022 9:33 AM PDT Station ID: [id number]
--- NOTE | 2022-09-22 10:09 | XRAY Report ---
PROCEDURE: Chest 1 View X-Ray INDICATIONS: chest pain TECHNIQUE: One view of the chest was acquired. COMPARISON: None. FINDINGS: Surgical changes and devices: None. Lungs and pleura: No pleural effusions or pneumothorax. Lungs are clear. Mediastinum: Mediastinal contours appear normal. Heart size is normal. Hiatal hernia. Bones and chest wall: No suspicious bony lesions. Overlying soft tissues appear unremarkable. IMPRESSION: Large hiatal hernia. Reviewed by: Gulshan Hodges on 09/22/2022 9:18 AM PDT Approved by: Gulshan Hodges on 09/22/2022 9:18 AM PDT Station ID: [id number]
--- NOTE | 2022-09-22 10:51 | ED Physician Documentation ---
PD HPI ALTERED MENTAL STATUS - Stated complaint Stated Complaint: AMS - Chief complaint Chief Complaint: Neuro - History obtained from History obtained from: EMS - History of Present Illness Timing - onset: Today (The patient was found by a neighbor outside in [place]. Unknown downtime and exposure to the cold. He was poorly responsive. EMS was called and found him to be poorly responsive with low blood sugar and multiple scratches but no obvious severe injury.) Timing - details: Gradual onset, Still present Quality / character: Less responsive, Confused Associated symptoms: Other (unknown) Contributing factors: Intoxicated. 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 He says he was seen for the obstruction here at this hospital in the last 3 to 4 years. We have no record of that going back to 2012) HEENT: None Psych: None Musculoskeletal: None Derm: None - Past Surgical History General: Appendectomy Ortho: Other (Left wrist fracture in the remote past) HEENT: Tonsil/Adenoidectomy - Present Medications Home Medications: Ambulatory Orders Medication Instructions Recorded Confirmed Folic Acid 1 mg PO DAILY #100 tablet 06/06/19 Thiamine [Vitamin B-1] 100 mg PO DAILY #100 tablet 06/06/19 - Allergies Allergies/Adverse Reactions: Allergies Allergy/AdvReac Type Severity Reaction Status Date / Time bee venom protein (honey bee) AdvReac Unknown Verified 06/05/19 16:00 cat dander AdvReac Respiratory Verified 06/05/19 16:01 - Living Situation Living Situation: reports: Alone Living Arrangement: reports: At home - Social History Does the pt smoke?: Yes Smoking Status: Former smoker Does the pt drink ETOH?: Yes Does the pt have substance abuse?: No - Immunizations Immunizations: TDAP >10years/unknown - POLST Patient has POLST: No POLST Status: DNR PD ED PE NORMAL - Vitals Vital signs reviewed: Yes (core temp 33) - General General: Well developed/nourished, Other (Confused with mumbling answers and oriented to person but not place and time. He does look around blankly at times. At one point it was not clear whether he actually had adequate vision as he did not seem to react to my finger coming close to him.) - HEENT HEENT: Atraumatic. No: Moist mucous membranes - Neck Neck: Supple, no meningeal sign, No bony TTP, No adenopathy - Cardiac Cardiac: RRR, No murmur - Respiratory Respiratory: No respiratory distress, Clear bilaterally - Abdomen Abdomen: Soft, Non distended. No: Normal bowel sounds (diminished) - Rectal Rectal: Other (normal tone) - Back Back: No spinal TTP - Derm Derm: Other (Multiple superficial abrasions and scratches on his legs and arms and some on his sides of his abdomen consistent with walking through the [place]. ). No: Warm and dry (cold and dry.) - Extremities Extremities: No edema, Other (The extremities are cool and in particular his feet are exquisitely cold to the touch. They are blanched in color but improves with external warming. However there is still some purplish coloration of the tip of the right fourth toe concerning for mild frostbite.) - Neuro Neuro: No motor deficit Eye Opening: Spontaneous Motor: Localizes to Pain Verbal: Confused GCS Score: 13 Results - Vitals Vitals: Vital Signs - 24 hr 09/22/22 09/22/22 09/22/22 08:41 09:30 10:00 Temperature 31.6 C L 32.9 C L Heart Rate 93 94 98 Respiratory 23 21 18 Rate Blood Pressure 141/90 H 140/90 H O2 Saturation 97 97 100 09/22/22 09/22/22 10:30 11:00 Temperature 34.8 C L 35.4 C L Heart Rate 98 106 H Respiratory 18 20 Rate Blood Pressure 130/79 145/100 H O2 Saturation 99 100 Oxygen O2 Source Simple Mask - Labs Labs: Laboratory Tests 09/22/22 09/22/22 09/22/22 08:46 08:46 08:46 WBC 14.0 H RBC 4.70 Hgb 15.2 Hct 44.5 MCV 94.7 H MCH 32.3 H MCHC 34.2 RDW 13.7 Plt Count 165 MPV 9.9 Neut # (Auto) 12.5 H Lymph # (Auto) 0.6 L [place] # (Auto) 0.9 Eos # (Auto) 0.0 Baso # (Auto) 0.1 Absolute Nucleated RBC 0.00 Nucleated RBC % 0.0 PT INR Sodium 136 Potassium 3.2 L Chloride 104 Carbon Dioxide 16 L Anion Gap 16.0 H BUN 29 H Creatinine 0.9 Estimated GFR (MDRD) 82 L Glucose 146 H Calcium 8.7 Magnesium 2.4 Total Bilirubin 0.6 AST 46 H ALT 24 Alkaline Phosphatase 66 Ammonia 36.3 H Total Creatine Kinase 915 H Total Protein 7.3 Albumin 3.9 Globulin 3.4 Albumin/Globulin Ratio 1.1 Lipase 37 TSH Urine Color Urine Clarity Urine pH Ur Specific Mears Urine Protein Urine Glucose (UA) Urine Ketones Urine Occult Blood Urine Nitrite Urine Bilirubin Urine Urobilinogen Ur Leukocyte Esterase Urine RBC Urine WBC Ur Squamous Epith Cells Urine Bacteria Urine Casts Ur Microscopic Review Urine Culture Comments Nasal Adenovirus (PCR) Nasal B. parapertussis DNA (PCR) Nasal Coronavir 229E PCR Nasal Coronavir HKU1 PCR Nasal Coronavir NL63 PCR Nasal Coronavir OC43 PCR Nasal Enterovir/Rhinovir PCR Nasal Influenza B PCR Nasal Influenza A PCR Nasal Parainfluen 1 PCR Nasal Parainfluen 2 PCR Nasal Parainfluen 3 PCR Nasal Parainfluen 4 PCR Nasal RSV (PCR) Nasal B.pertussis DNA PCR Nasal C.pneumoniae (PCR) Rafa Human Metapneumo PCR Nasal M.pneumoniae (PCR) Nasal SARS-CoV-2 (PCR) Salicylates < 6.0 Urine Opiates Screen Ur Oxycodone Screen Urine Methadone Screen Ur Propoxyphene Screen Acetaminophen < 10 L Ur Barbiturates Screen Ur Tricyclics Screen Ur Phencyclidine Scrn Ur Amphetamine Screen U Methamphetamines Scrn U Benzodiazepines Scrn Urine Cocaine Screen U Cannabinoids Screen Ethyl Alcohol 55.8 Serum Ketones NEGATIVE 09/22/22 09/22/22 09/22/22 08:46 08:46 09:30 WBC RBC Hgb Hct MCV MCH MCHC RDW Plt Count MPV Neut # (Auto) Lymph # (Auto) [place] # (Auto) Eos # (Auto) Baso # (Auto) Absolute Nucleated RBC Nucleated RBC % PT 11.3 INR 1.0 Sodium Potassium Chloride Carbon Dioxide Anion Gap BUN Creatinine Estimated GFR (MDRD) Glucose Calcium Magnesium Total Bilirubin AST ALT Alkaline Phosphatase Ammonia Total Creatine Kinase Total Protein Albumin Globulin Albumin/Globulin Ratio Lipase TSH 1.47 Urine Color YELLOW Urine Clarity CLEAR Urine pH 5.5 Ur Specific Mears 1.020 Urine Protein NEGATIVE Urine Glucose (UA) NEGATIVE Urine Ketones TRACE Urine Occult Blood SMALL H Urine Nitrite NEGATIVE Urine Bilirubin NEGATIVE Urine Urobilinogen 0.2 (NORMAL) Ur Leukocyte Esterase NEGATIVE Urine RBC 0-5 Urine WBC 0-3 Ur Squamous Epith Cells NONE SEEN Urine Bacteria None Seen Urine Casts 3-5 Hyaline Casts Ur Microscopic Review INDICATED Urine Culture Comments NOT INDICATED Nasal Adenovirus (PCR) Nasal B. parapertussis DNA (PCR) Nasal Coronavir 229E PCR Nasal Coronavir HKU1 PCR Nasal Coronavir NL63 PCR Nasal Coronavir OC43 PCR Nasal Enterovir/Rhinovir PCR Nasal Influenza B PCR Nasal Influenza A PCR Nasal Parainfluen 1 PCR Nasal Parainfluen 2 PCR Nasal Parainfluen 3 PCR Nasal Parainfluen 4 PCR Nasal RSV (PCR) Nasal B.pertussis DNA PCR Nasal C.pneumoniae (PCR) Rafa Human Metapneumo PCR Nasal M.pneumoniae (PCR) Nasal SARS-CoV-2 (PCR) Salicylates Urine Opiates Screen NEGATIVE Ur Oxycodone Screen NEGATIVE Urine Methadone Screen NEGATIVE Ur Propoxyphene Screen NEGATIVE Acetaminophen Ur Barbiturates Screen NEGATIVE Ur Tricyclics Screen NEGATIVE Ur Phencyclidine Scrn NEGATIVE Ur Amphetamine Screen NEGATIVE U Methamphetamines Scrn NEGATIVE U Benzodiazepines Scrn NEGATIVE Urine Cocaine Screen NEGATIVE U Cannabinoids Screen NEGATIVE Ethyl Alcohol Serum Ketones 09/22/22 09/22/22 10:48 10:50 WBC RBC Hgb Hct MCV MCH MCHC RDW Plt Count MPV Neut # (Auto) Lymph # (Auto) [place] # (Auto) Eos # (Auto) Baso # (Auto) Absolute Nucleated RBC Nucleated RBC % PT INR Sodium Potassium Chloride Carbon Dioxide Anion Gap BUN Creatinine Estimated GFR (MDRD) Glucose Calcium Magnesium Total Bilirubin AST ALT Alkaline Phosphatase Ammonia Total Creatine Kinase 1196 H* Total Protein Albumin Globulin Albumin/Globulin Ratio Lipase TSH Urine Color Urine Clarity Urine pH Ur Specific Mears Urine Protein Urine Glucose (UA) Urine Ketones Urine Occult Blood Urine Nitrite Urine Bilirubin Urine Urobilinogen Ur Leukocyte Esterase Urine RBC Urine WBC Ur Squamous Epith Cells Urine Bacteria Urine Casts Ur Microscopic Review Urine Culture Comments Nasal Adenovirus (PCR) NOT DETECTED Nasal B. parapertussis DNA (PCR) NOT DETECTED Nasal Coronavir 229E PCR NOT DETECTED Nasal Coronavir HKU1 PCR NOT DETECTED Nasal Coronavir NL63 PCR NOT DETECTED Nasal Coronavir OC43 PCR NOT DETECTED Nasal Enterovir/Rhinovir PCR NOT DETECTED Nasal Influenza B PCR NOT DETECTED Nasal Influenza A PCR NOT DETECTED Nasal Parainfluen 1 PCR NOT DETECTED Nasal Parainfluen 2 PCR NOT DETECTED Nasal Parainfluen 3 PCR NOT DETECTED Nasal Parainfluen 4 PCR NOT DETECTED Nasal RSV (PCR) NOT DETECTED Nasal B.pertussis DNA PCR NOT DETECTED Nasal C.pneumoniae (PCR) NOT DETECTED Rafa Human Metapneumo PCR NOT DETECTED Nasal M.pneumoniae (PCR) NOT DETECTED Nasal SARS-CoV-2 (PCR) NOT DETECTED Salicylates Urine Opiates Screen Ur Oxycodone Screen Urine Methadone Screen Ur Propoxyphene Screen Acetaminophen Ur Barbiturates Screen Ur Tricyclics Screen Ur Phencyclidine Scrn Ur Amphetamine Screen U Methamphetamines Scrn U Benzodiazepines Scrn Urine Cocaine Screen U Cannabinoids Screen Ethyl Alcohol Serum Ketones PD Medical Decision Making - ED course Complexity details: considered differential (Patient with altered mental status found outside in the cold. Records here show history of alcoholism. Considerations for closed head injury, alcohol intoxication, elevated ammonia, low blood sugar, electrolyte disorder, other overdoses and other metabolic derangements. Also hypothermia.), d/w patient Social Determinants of Health: He lives alone. Nursing talked with his daughter he states he actually wants to live alone and is refused to live with his daughter. He is an alcoholic regularly. No known history of other drug use. Drug Therapy Requiring Monitoring for Toxicity: He did have altered mental status. His blood sugar was noted to be low by EMS and they gave some dextrose. His blood sugar was still little bit low in the 70s here so was given a D10 W infusion for hypoglycemia. His body temperature was found to be 88 and we started external rewarming and active external rewarming with warming unit and some internal rewarming with heated humidified oxygen. Evaluation of his extremities including removal of his wet socks showed his toes to be exquisitely cold and blanched. These did warm up well with external warming and he had a return of color and capillary refill though they were sensitive to the touch. There was still some purplish color on the end of the right fourth toe. This would need to be watched for concern of frostbite. He had a CT of the head performed which did not show any acute intracranial bleed or abnormalities. Basic blood tests were done which showed a relatively normal electrolytes except for slightly low potassium at 3.2. Sodium was normal. Blood count was normal as well. More specific testing included an ammonia level which was slightly elevated at 36. CK was elevated but not to the degree for rhabdo. It was over thousand however at 1196. His alcohol level was 52. I presume it was much higher last night. Its unknown the amount of time he was outside in the cold. His body temperature was low and initially there was no shivering. He did start having some shakiness which appeared more withdrawal than it was shivering. He was given Ativan 1 mg IV which actually helped his mentation and reduced his shakiness. We continued with passive and active external warming. His core temperature was slowly increasing. He had a [place] with temperature probe placed initially early on by nursing and this was used to monitor progression of his body temperature. He also tolerated the warmed humidified oxygen. The patient does have multiple problems that are requiring close attention. I talked with the hospitalist who agreed to admit the patient to the ICU for ongoing care. Anticipatory problem will be presumed withdrawal syndrome given his alcoholism. This will likely be starting soon. ED course: The patient was found in the [place] his house by a neighbor who just hap pened upon him. Unknown duration that he had been there. He was confused and shaky and felt cold. EMS was called and brought him here. He was found to be hypoglycemic. No report of diabetes per se. The patient by prior records and report from his daughter does have a longstanding history of alcoholism. He lives by himself and prefers it that way. Here that temperature was found to be 88 core temperature. He has a warming blanket on and warm mist nebulizer. A temperature [place] is placed. He was having some shakiness as well and with his history, I did give some IV fluids as well as thiamine and Ativan. This did allow some of the shakiness which looked more like tremor and not shivers. - Critical Care Time(min): 50 Comments: The patient came with altered mental status and initial hypoglycemia and hypothermia which required immediate critical attention. Departure - Departure Disposition: ED Place in Observation Clinical Impression: Hypothermia, Cold exposure, Alcoholism, Multiple abrasions, Frostbite of toe of right foot, AMS (altered mental status) Condition: Stable Record reviewed to determine appropriate education?: Yes Discharge Date/Time: 09/22/22 12:06
[2022-09-22] MEDS ORDERED: LACTATED RINGERS 1,000 ML IV STA (11:09)
[2022-09-22] MEDS ORDERED: ONDANSETRON 4 MG/2 ML VIAL IVP PRN (11:23)
--- NOTE | 2022-09-22 11:41 | HISTORY & PHYSICAL EXAMINATION ---
Chief Complaint - Chief Complaint Chief Complaint: Found down in [facility], EMS called by passers by History of Present Illness - Admitted From Admitted From:: ED - History Obtained From Records Reviewed: Yes History obtained from: ED provider - History of Present Illness HPI Comment/Other: This is a 77-year-old white male who lives alone, and has a history of alcohol abuse, takes no meds. Patient was admitted here in 2019 after he was found by his neighbors down on the sidewalk, he went through alcohol withdrawal. The patient was now found by passersby in the [facility], with outdoor temp 38 degrees F last night, unknown how long of a period of time he was outside. In the ER he was found to be hypothermic with a temperature of 31.7 C, vital signs are stable, alcohol present on MUDS and also has potassium of 3.2, BUN/creatinine of 29/0.9, CK 915>> 1196, AST 46, ALT 24, Ammonia level 36.3. He was felt to be having active alcohol withdrawal with tremors and confusion, and was given Ativan IV twice and iv Thiamine. A bear hugger warming unit has been placed and he also received a warm [place] placed. The ED provider reached out to me and we discussed this patient. He will be admitted for treating hypothermia, alcohol withdrawal, GWENDOLYN rhabdomyolysis. He does not have a POLST on file however his prior admission documented he wants to be a DNR. History - Past Medical History Cardiovascular: reports: Hypertension Respiratory: reports: None Neuro: reports: None Endocrine/Autoimmune: reports: None GI: reports: None HEENT: reports: None Psych: reports: None Musculoskeletal: reports: None Derm: reports: None MRSA Hx?: No - Past Surgical History General: reports: Appendectomy Ortho: reports: Other (Left wrist fracture in the remote past) HEENT: reports: Tonsil/Adenoidectomy - Family & Social History Family History Comment/Other: Mom at age 94 of old age. Dad at age 73 from what he thinks is lung cancer. He also had a heart transplant. He has 2 sisters and 1 brother. 3 children. 2 daughters and a son, the son also had problems with alcoholism. Living arrangement: At home Living Situation: Alone Social History Notes: He was born and raised in [place]. 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 Sometimes in [place] sometimes in [place]. Years ago when he retired [place] Mom is and sister is a neighbor. He was to his first twice. her then remarried her. a second time to a different woman. He has 3 children with his first . He started smoking at the age of 16 and smoked 1 pack/day till age 26. Alcohol abuse but he never did disclose how much or what. - POLST Patient has POLST: No POLST Status: DNR Meds/Allgy - Home Medications Home Medications: Ambulatory Orders Medication Instructions Recorded Confirmed Folic Acid 1 mg PO DAILY #100 tablet 06/06/19 Thiamine [Vitamin B-1] 100 mg PO DAILY #100 tablet 06/06/19 - Allergies Allergies/Adverse Reactions: Allergies Allergy/AdvReac Type Severity Reaction Status Date / Time bee venom protein (honey bee) AdvReac Unknown Verified 06/05/19 16:00 cat dander AdvReac Respiratory Verified 06/05/19 16:01 Review of Systems - All Other Systems All Other Systems: reports: Other (Unable to obtain any history because of his disorientation, confusion, intermittent somnolence) Exam - Vital Signs Reviewed Vital Signs: Yes Vital Signs: Vital Signs x48h Temp Pulse Resp BP Pulse Ox 09/22/22 11:00 35.4 C L 106 H 20 145/100 H 100 09/22/22 10:30 34.8 C L 98 18 130/79 99 09/22/22 10:00 98 18 140/90 H 100 09/22/22 09:30 32.9 C L 94 21 97 09/22/22 08:41 31.6 C L 93 23 141/90 H 97 - Physical Exam General Appearance: positive: No acute distress, Lethargic Eyes Bilateral: positive: Other (Red macules on face eyelids, nose) ENT: positive: Dry mucous membranes, Other (Diaphoretic skin, disheveled) Neck: positive: Nml inspection Respiratory: positive: No respiratory distress, Breath sounds nml Cardiovascular: positive: Regular rate & rhythm Abdomen: positive: No distention Skin: positive: Warm, Dry, Skin rash (red papules on face. several ecchympses and bruises on arms and chest) Extremities: positive: Non-tender, No pedal edema Neurologic/Psychiatric: positive: Other (Lethargic, When awakens briefly he is confused, Has a intermittent tremor of both) Conclusion/Plan - Problem List (1) Hypothermia Conclusion/Plan: Related to being found outside in the [place] and last night the temperature was 38 F. Labs were all reviewed. The hypothermic does not appear to be due to sepsis, although the white count is mildly elevated at 14. He has a normal TSH therefore his hypothermia is not from hypothyroidism. Plan: Continue slow rewarming using a warming blanket, warm fluids if we have them, a warm [place] was ordered. Telemetry ordered Remain in the ICU (2) Rhabdomyolysis Conclusion/Plan: Related to being found down on the ground and we do not know how long he was down Plan: Continue with IV saline Avoid nephrotoxin Follow CK and BMP daily (3) Alcohol withdrawal Conclusion/Plan: Patient had tremors at rest, he has received several doses of IV Ativan in the ED, is therefore mostly asleep when I am seeing him. His toxicology screen shows alcohol still present and his serum but this suggest that he usually runs a much higher serum alcohol level, since he is going through withdrawal Plan: [facility] protocol IV Ativan as needed Will not order p.o. Librium because he is not able to swallow safely (4) Alcohol abuse Conclusion/Plan: As per history. Plan: I was just informed by pharmacy that we no longer have banana bags here because there [place] a [place] multivit[place]. We have to order each component separately therefore will order IV containing D5 and NS, daily IV thiamine, some type of vitamin either IV or p.o. Avoid hepatotoxins Follow LFTs and Ammonia level intermittently When he is awake and can swallow, will order daily lactulose because of the elevated ammonia level. When he is finished going through withdrawal, will request social work to see. (5) Dehydration Conclusion/Plan: He has an elevated BUN/creatinine ratio. Plan: Continue IV fluids Avoid nephrotoxins Follow BMP daily (6) Hypokalemia Conclusion/Plan: Related to poor oral intake due to his alcoholism Plan: Replace with K riders Follow BMP daily (7) V-tach Conclusion/Plan: After arriving in the ICU he had a 3 beat run of monomorphic V. tach, rate was 160. Plan: Continue to follow his electrolytes, calcium and magnesium and replace if low We will order troponins x2 We will order an Echocardiogram. - Lab Results Fish Bones: 09/22/22 08:46 09/22/22 13:13 - Diagnostic Imaging Results Diagnostic Imaging Results: positive: Final report reviewed - Other Other Results/Comments: Attestation: The patient is expected to be discharged or transferred to another facility within 96 hours: Yes.
[2022-09-22 11:47] LABS: B. PARAPERTUSSIS- RESP PCR PAN NOT DETECTED; B. PERTUSSIS- RESP PCR PANEL NOT DETECTED; C. PNEUMONIAE- RESP PCR PANEL NOT DETECTED; CORONAVIRUS 229E-RESP PCR NOT DETECTED; CORONAVIRUS HKU1-RESP PCR NOT DETECTED; CORONAVIRUS NL63-RESP PCR NOT DETECTED; CORONAVIRUS OC43-RESP PCR NOT DETECTED; HUMAN METAPNEUMOVIRUS NOT DETECTED; INFLUENZA A- RESP PCR PANEL NOT DETECTED; INFLUENZA B - RESP PCR PANEL NOT DETECTED; M. PNEUMONIAE- RESP PCR PANEL NOT DETECTED; PARAINFLUENZA VIRUS 1 NOT DETECTED; PARAINFLUENZA VIRUS 2 NOT DETECTED; PARAINFLUENZA VIRUS 3 NOT DETECTED; PARAINFLUENZA VIRUS 4 NOT DETECTED; RHINOVIRUS/ENTEROVIRUS NOT DETECTED; RSV- RESP PCR PANEL NOT DETECTED; SARS-CoV-2 -RESP PCR PANEL NOT DETECTED
[2022-09-22 11:57] LABS: PT - PROTHROMBIN TIME 11.3 secs (9.9-12.6)
[2022-09-22] MEDS ORDERED: DEXTROSE 5%-0.9% NACL 1,000 ML IV SCH (12:00)
[2022-09-22] MEDS: LORazepam 2 MG/ML VIAL IVP PRN (12:44)
[2022-09-22] MEDS: SODIUM CHLORIDE FLUSH 0.9% 10 ML SYRINGE IVP PRN (12:46)
[2022-09-22] MEDS ORDERED: SODIUM CHLORIDE 0.9% 500 ML IV ONE (13:01)
[2022-09-22] MEDS: DEXTROSE 5%-0.9% NACL 1,000 ML IV SCH ×3 (13:34→23:12)
[2022-09-22 13:58] LABS: PHOSPHORUS 3.7 mg/dL (2.5-4.6); POTASSIUM 3.5 mmol/L (3.5-5.0)
[2022-09-22] MEDS ORDERED: BACITRACIN ZINC OINT 1 PACKET TOP PRN (14:19)
[2022-09-22] MEDS: POTASSIUM CHLOR 10 MEQ/100 ML 10 MEQ/100 ML BAG IV SCH ×2 (15:16→16:06)
[2022-09-22] MEDS: SODIUM CHLORIDE FLUSH 0.9% 10 ML SYRINGE IVP SCH (18:06)
[2022-09-22] MEDS: FAMOTIDINE 20 MG/2 ML VIAL IVP SCH (20:29)
[2022-09-23] MEDS: SODIUM CHLORIDE FLUSH 0.9% 10 ML SYRINGE IVP SCH ×3 (00:04→16:40)
[2022-09-23] MEDS: DEXTROSE 5%-0.9% NACL 1,000 ML IV SCH ×4 (04:33→22:05)
[2022-09-23 04:59] LABS: CALCIUM, IONIZED 1.08 mmol/L (1.15-1.33); VBG PH 7.428 (7.31-7.41)
[2022-09-23 05:03] LABS: BASOPHILS % (AUTO) 0.3 %; EOSINOPHILS # (AUTO) 0.1 10^3/uL (0.0-0.7); EOSINOPHILS % (AUTO) 0.9 %; HCT - HEMATOCRIT 35.7 % (42.0-52.0); HGB - HEMOGLOBIN 11.9 g/dL (14.0-18.0); LYMPHOCYTES # (AUTO) 0.9 10^3/uL (1.5-3.5); LYMPHOCYTES % (AUTO) 13.2 %; MEAN CORPUSCULAR HEMOGLOBIN 31.9 pg (27.0-31.0); MEAN CORPUSCULAR HGB CONC 33.3 g/dL (32.0-36.0); MEAN CORPUSCULAR VOLUME 95.7 fL (80.0-94.0); MEAN PLATELET VOLUME 10.7 fL (7.4-11.4); MONOCYTES # (AUTO) 0.7 10^3/uL (0.0-1.0); MONOCYTES % (AUTO) 11.1 %; NEUTROPHILS % (AUTO) 74.2 %; PLT - PLATELET COUNT 124 10^3/uL (130-450); RED BLOOD COUNT 3.73 10^6/uL (4.70-6.10); RED CELL DISTRIBUTION WIDTH 14.6 % (12.0-15.0); WHITE BLOOD COUNT 6.7 x10^3/uL (4.8-10.8)
[2022-09-23 05:30] LABS: ALBUMIN 3.1 g/dL (3.2-5.5); BILIRUBIN,DIRECT 0.2 mg/dL (0.1-0.5); BILIRUBIN,TOTAL 0.8 mg/dL (0.2-1.0); CALCIUM 7.7 mg/dL (8.5-10.3); CREATININE 0.7 mg/dL (0.6-1.2); MAGNESIUM 1.9 mg/dL (1.7-2.8); PHOSPHORUS 2.2 mg/dL (2.5-4.6); POTASSIUM 3.4 mmol/L (3.5-5.0); TOTAL PROTEIN 5.5 g/dL (6.7-8.2)
[2022-09-23] MEDS: CALCIUM CARBONATE CHEW 500 MG TABLET PO SCH ×2 (06:14→10:08)
[2022-09-23] MEDS: NEUTRA-PHOS 250 MG TABLET PO SCH ×2 (06:14→08:10)
[2022-09-23] MEDS: POTASSIUM CHLORIDE 20 MEQ TABLET PO SCH ×2 (08:09→10:08)
[2022-09-23] MEDS: FAMOTIDINE 20 MG/2 ML VIAL IVP SCH ×2 (08:10→20:44)
[2022-09-23] MEDS: THIAMINE INJ 100 MG in SODIUM CHLORIDE 0.9% 50 ML IV SCH (08:18)
[2022-09-23] MEDS: LORazepam 2 MG/ML VIAL IVP PRN ×12 (08:34→21:04)
[2022-09-23] MEDS: ACETAMINOPHEN 325 MG TABLET PO PRN (10:08)
[2022-09-23 15:54] LABS: CALCIUM, IONIZED 1.08 mmol/L (1.15-1.33); VBG PH 7.422 (7.31-7.41)
--- NOTE | 2022-09-23 16:27 | PROVIDER PROGRESS NOTE ---
Subjective - Subjective Pt reports feeling: Worse (He required high doses of Ativan on CIWA protocol overnight. In early a.m. he was awake and answering normally but 1 hour later he was agitated, pulling out his IVs, trying to climb out of bed and was oriented x0) Objective - Vital Signs/Intake & Output Reviewed Vital Signs: Yes Vital Signs: Vital Signs Temp Pulse Resp BP Pulse Ox 09/23/22 16:12 36.4 C L 75 20 135/98 H 98 09/23/22 15:00 73 23 109/87 H 95 09/23/22 13:00 36.5 C 68 20 113/73 96 Intake & Output: Intake & Output 09/20/22 09/21/22 09/22/22 09/23/22 23:59 23:59 23:59 23:59 Intake Total 4507.333 3390 Output Total 785 1305 Balance 3722.333 2085 - Objective General Appearance: positive: Lethargic (just got Ativan 6 mg iv) Eyes Bilateral: positive: No lid inflammation ENT: positive: Dry mucous membranes, Other (Disheveled, has red papules on face and nose) Neck: positive: Nml inspection, No JVD Respiratory: positive: No respiratory distress Cardiovascular: positive: Regular rate & rhythm, No murmur Abdomen: positive: Non-tender, Nml bowel sounds Skin: positive: Warm, Diaphoresis, Other (Disheveled with oily skin on face) Extremities: positive: Non-tender, No pedal edema Neurologic/Psychiatric: positive: Other (Lethargic after iv Ativan) - Lab Results Fish Bones: 09/23/22 04:20 09/23/22 15:47 Other Labs: Lab Results x24hrs 09/23/22 09/23/22 09/23/22 Range/Units 15:47 15:47 04:20 WBC (4.8-10.8) x10^3/uL RBC (4.70-6.10) 10^6/uL Hgb (14.0-18.0) g/dL Hct (42.0-52.0) % MCV (80.0-94.0) fL MCH (27.0-31.0) pg MCHC (32.0-36.0) g/dL RDW (12.0-15.0) % Plt Count (130-450) 10^3/uL MPV (7.4-11.4) fL Neut # (Auto) (1.5-6.6) 10^3/uL Lymph # (Auto) (1.5-3.5) 10^3/uL [place] # (Auto) (0.0-1.0) 10^3/uL Eos # (Auto) (0.0-0.7) 10^3/uL Baso # (Auto) (0.0-0.1) 10^3/uL Absolute Nucleated RBC x10^3/uL Nucleated RBC % /100WBC VBG pH 7.422 H 7.428 H (7.31-7.41) Ionized Calcium 1.08 L 1.08 L (1.15-1.33) mmol/L Sodium (135-145) mmol/L Potassium 3.5 (3.5-5.0) mmol/L Chloride (101-111) mmol/L Carbon Dioxide (21-32) mmol/L Anion Gap (6-13) BUN (6-20) mg/dL Creatinine (0.6-1.2) mg/dL Estimated GFR (MDRD) (>89) Glucose (70-100) mg/dL Calcium (8.5-10.3) mg/dL Phosphorus (2.5-4.6) mg/dL Magnesium (1.7-2.8) mg/dL Total Bilirubin (0.2-1.0) mg/dL Direct Bilirubin (0.1-0.5) mg/dL AST (10-42) IU/L ALT (10-60) IU/L Alkaline Phosphatase (42-121) IU/L Total Creatine Kinase (22-269) IU/L Total Protein (6.7-8.2) g/dL Albumin (3.2-5.5) g/dL Globulin (2.1-4.2) g/dL 09/23/22 09/23/22 09/22/22 Range/Units 04:20 04:20 18:20 WBC 6.7 (4.8-10.8) x10^3/uL RBC 3.73 L (4.70-6.10) 10^6/uL Hgb 11.9 L (14.0-18.0) g/dL Hct 35.7 L (42.0-52.0) % MCV 95.7 H (80.0-94.0) fL MCH 31.9 H (27.0-31.0) pg MCHC 33.3 (32.0-36.0) g/dL RDW 14.6 (12.0-15.0) % Plt Count 124 L (130-450) 10^3/uL MPV 10.7 (7.4-11.4) fL Neut # (Auto) 5.0 (1.5-6.6) 10^3/uL Lymph # (Auto) 0.9 L (1.5-3.5) 10^3/uL [place] # (Auto) 0.7 (0.0-1.0) 10^3/uL Eos # (Auto) 0.1 (0.0-0.7) 10^3/uL Baso # (Auto) 0.0 (0.0-0.1) 10^3/uL Absolute Nucleated RBC 0.00 x10^3/uL Nucleated RBC % 0.0 /100WBC VBG pH (7.31-7.41) Ionized Calcium (1.15-1.33) mmol/L Sodium 141 (135-145) mmol/L Potassium 3.4 L 4.1 (3.5-5.0) mmol/L Chloride 117 H (101-111) mmol/L Carbon Dioxide 21 (21-32) mmol/L Anion Gap 3.0 L (6-13) BUN 16 (6-20) mg/dL Creatinine 0.7 (0.6-1.2) mg/dL Estimated GFR (MDRD) 109 (>89) Glucose 127 H (70-100) mg/dL Calcium 7.7 L (8.5-10.3) mg/dL Phosphorus 2.2 L (2.5-4.6) mg/dL Magnesium 1.9 (1.7-2.8) mg/dL Total Bilirubin 0.8 (0.2-1.0) mg/dL Direct Bilirubin 0.2 (0.1-0.5) mg/dL AST 58 H (10-42) IU/L ALT 22 (10-60) IU/L Alkaline Phosphatase 43 (42-121) IU/L Total Creatine Kinase 2036 H* (22-269) IU/L Total Protein 5.5 L (6.7-8.2) g/dL Albumin 3.1 L (3.2-5.5) g/dL Globulin 2.4 (2.1-4.2) g/dL Assessment/Plan - Problem List (1) Rhabdomyolysis Impression: Related to being found down on the ground outdoors and we do not know how long he was down. When he was somewhat coherent this morning, before being agitated at midday, asked him if he knew how he got here and he remembered being told that people found him outdoors in the [place]. I did not get to ask him if he knew how he got into the [place]. Labs are all reviewed. His CK has worsened since being here, going [id number]>> 1196>> 2036 today. But his creat did not worsen. Plan: Continue with IV saline Avoid nephrotoxin Follow CK and BMP daily (2) Alcohol withdrawal Conclusion/Plan: Patient has had tremors at rest, and disorientation, he has received several doses of IV Ativan His toxicology screen shows alcohol was still present, suggesting that he usually runs a higher serum alcohol level, since he is going through withdrawal at this lower level. 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 Plan: Continue CIWA protocol Will increase to high-dose ICU IV Ativan protocol dosing, to be given as needed Will not order p.o. Librium because he is not able to swallow safely (3) Alcohol abuse Conclusion/Plan: As per history. Plan: We no longer have banana bags here because there is a [place] of [place] multivitamins [place] the [place]. We have to order each component separately therefore continue IV containing D5 and NS, daily IV thiamine, some type of vitamin either IV or p.o. Avoid hepatotoxins Follow LFTs and Ammonia level intermittently When he is awake and can swallow, will order daily lactulose because of the elevated ammonia level. When he is finished going through withdrawal, will request social work to see. (4) Dehydration Conclusion/Plan: All labs were reviewed. He presented with BUN/creatinine of 29/0.9>> improved to 16/0.7 today on iv fluids. Plan: Continue IV fluids Avoid nephrotoxins Follow BMP daily (5) Hypokalemia Conclusion/Plan: Related to poor oral intake due to his alcoholism Plan: Replace with K riders Follow BMP and Mg daily Continue ICU electrolyte replacement protocol (6) V-tach Conclusion/Plan: Resolved After arriving in the ICU on 09/22, he had a 3 beat run of monomorphic V. tach, rate was 160. Plan: Continue Telemetry as ordered Continue to follow his electrolytes, calcium and magnesium and replace if low We will order an Echocardiogram. (7) Hypothermia Conclusion/Plan: Resolved It was caused by being found outside in the [place]. Labs were all reviewed. The hypothermic does not appear to be due to sepsis, although the white count was mildly elevated at 14. He has a normal TSH therefore his hypothermia is not from hypothyroidism. Plan: Continue Telemetry as ordered Remain in the ICU
[2022-09-23 16:34] LABS: FOLATE 4.35 ng/mL (5.90 - >24.8)
[2022-09-23] MEDS ORDERED: CALCIUM GLUC 1,000MG/50ML-NACL 1,000 MG/50 ML BAG IV ONE (18:31)
[2022-09-23] MEDS ORDERED: POTASSIUM CHLOR 10 MEQ/100 ML 10 MEQ/100 ML BAG IV SCH (19:00)
[2022-09-23] MEDS: POTASSIUM CHLOR 10 MEQ/100 ML 10 MEQ/100 ML BAG IV SCH ×4 (19:59→23:10)
[2022-09-24 01:20] LABS: CALCIUM, IONIZED 1.1 mmol/L (1.15-1.33); VBG PH 7.462 (7.31-7.41)
[2022-09-24] MEDS ORDERED: CALCIUM GLUC 1,000MG/50ML-NACL 1,000 MG/50 ML BAG IV ONE (01:23)
[2022-09-24] MEDS: DEXTROSE 5%-0.9% NACL 1,000 ML IV SCH ×5 (01:51→20:38)
[2022-09-24] MEDS: SODIUM CHLORIDE FLUSH 0.9% 10 ML SYRINGE IVP SCH ×3 (01:54→16:21)
[2022-09-24] MEDS: POTASSIUM CHLOR 10 MEQ/100 ML 10 MEQ/100 ML BAG IV SCH ×2 (03:28→04:30)
[2022-09-24 05:02] LABS: CALCIUM, IONIZED 1.14 mmol/L (1.15-1.33); VBG PH 7.46 (7.31-7.41)
[2022-09-24 05:31] LABS: CALCIUM 8.4 mg/dL (8.5-10.3); CREATININE 0.6 mg/dL (0.6-1.2); MAGNESIUM 1.7 mg/dL (1.7-2.8); POTASSIUM 4.1 mmol/L (3.5-5.0)
[2022-09-24] MEDS ORDERED: MAGNESIUM SULFATE 2 GRAM 2 GM/50 ML BAG IV ONE (06:00)
[2022-09-24] MEDS: THIAMINE INJ 100 MG in SODIUM CHLORIDE 0.9% 50 ML IV SCH (08:00)
[2022-09-24] MEDS: FAMOTIDINE 20 MG/2 ML VIAL IVP SCH ×2 (08:01→20:38)
[2022-09-24] MEDS ORDERED: CYANOCOBALAMIN 1,000 MCG/ML VIAL IM ONE (09:11)
[2022-09-24] MEDS ORDERED: FOLIC ACID INJ 1 MG in SODIUM CHLORIDE 0.9% 1,000 ML IV ONE (11:00)
[2022-09-24] MEDS: LORazepam 2 MG/ML VIAL IVP PRN ×3 (11:00→16:50)
--- NOTE | 2022-09-24 16:42 | PROVIDER PROGRESS NOTE ---
Subjective - Subjective Pt reports feeling: Worse (RN reports that he was combative, needed to be put in restraints, needed high doses of Ativan for agitation and scored high on the CIWA protocol) Objective - Vital Signs/Intake & Output Reviewed Vital Signs: Yes Vital Signs: Vital Signs Temp Pulse Resp BP Pulse Ox 09/24/22 16:00 37.2 C 85 26 H 170/96 H 95 09/24/22 15:00 37.0 C 83 26 H 157/101 H 96 09/24/22 14:00 76 25 H 157/97 H 94 09/24/22 13:00 36.9 C 84 24 152/97 H 95 Intake & Output: Intake & Output 09/21/22 09/22/22 09/23/22 09/24/22 23:59 23:59 23:59 23:59 Intake Total 4507.333 4741 2100 Output Total 785 2180 4470 Balance 3722.333 8269 -5762 - Objective General Appearance: positive: Lethargic, Other (Disheveled, face is flushed) Eyes Bilateral: positive: No lid inflammation ENT: positive: Dry mucous membranes Neck: positive: Nml inspection, No JVD Respiratory: positive: No respiratory distress, Breath sounds nml Cardiovascular: positive: Regular rate & rhythm, No murmur Abdomen: positive: Non-tender, No distention Skin: positive: Other (Skin of his torso and extremities is normal, skin of his face is flushed, he has red macules on his forehead and nose) Extremities: positive: No pedal edema Neurologic/Psychiatric: positive: Other (Lethargic (receiving IV benzodiazepines)) - Lab Results Fish Bones: 09/26/22 04:25 09/26/22 13:00 Other Labs: Lab Results x24hrs 09/24/22 09/24/22 09/24/22 Range/Units 12:29 04:39 04:31 VBG pH 7.460 H (7.31-7.41) Ionized Calcium 1.14 L (1.15-1.33) mmol/L Sodium 138 (135-145) mmol/L Potassium 4.1 (3.5-5.0) mmol/L Chloride 115 H (101-111) mmol/L Carbon Dioxide 20 L (21-32) mmol/L Anion Gap 3.0 L (6-13) BUN 6 (6-20) mg/dL Creatinine 0.6 (0.6-1.2) mg/dL Estimated GFR (MDRD) 130 (>89) Glucose 137 H (70-100) mg/dL Calcium 8.4 L (8.5-10.3) mg/dL Magnesium 2.2 1.7 (1.7-2.8) mg/dL Total Creatine Kinase 1461 H* (22-269) IU/L 09/24/22 09/24/22 Range/Units 01:06 01:06 VBG pH 7.462 H (7.31-7.41) Ionized Calcium 1.10 L (1.15-1.33) mmol/L Sodium (135-145) mmol/L Potassium 3.9 (3.5-5.0) mmol/L Chloride (101-111) mmol/L Carbon Dioxide (21-32) mmol/L Anion Gap (6-13) BUN (6-20) mg/dL Creatinine (0.6-1.2) mg/dL Estimated GFR (MDRD) (>89) Glucose (70-100) mg/dL Calcium (8.5-10.3) mg/dL Magnesium (1.7-2.8) mg/dL Total Creatine Kinase (22-269) IU/L Assessment/Plan - Problem List (1) Rhabdomyolysis Impression: Related to being found down on the ground outdoors and we do not know how long he was down. When he was somewhat coherent this morning, before being agitated at midday, asked him if he knew how he got here and he remembered being told that people found him outdoors in the [place]. I did not get to ask him if he knew how he got into the [place]. Labs are all reviewed. His CK first worsene, going [id number]>> 1196>> 2036>> today. But his creat did not worsen. Plan: Continue with IV saline Avoid nephrotoxin Follow CK and BMP daily (2) Alcohol withdrawal Conclusion/Plan: Patient had tremors at rest, and disorientation, then became more agitated on his second day and has received higher (ICU protocol) doses of IV Ativan Plan: Continue CIWA protocol Continue the high-dose ICU protocol IV Ativan dosing, to be given as needed Will not order p.o. Librium because he is not able to swallow safely (3) Alcohol abuse Conclusion/Plan: As per history. Plan: We no longer have banana bags here because there is a [place] of [place] multivitamins [place] the [place]. We have to order each component separately ther efore continue IV containing D5 and NS, daily IV thiamine, some type of vitamin either IV or p.o. Continue iv Thiamine while he is sedated because of needing Ativan for withdrawal Avoid hepatotoxins Follow LFTs and Ammonia level intermittently When he is awake and can swallow, will order daily lactulose because of the elevated ammonia level. When he is finished going through withdrawal, will request social work to see. (4) Dehydration Conclusion/Plan: All labs were reviewed. He presented with BUN/creatinine of 29/0.9>> improved on iv fluids. Plan: Continue IV fluids Avoid nephrotoxins Follow BMP daily (5) Hypokalemia Conclusion/Plan: Related to poor oral intake due to his alcoholism Plan: Replace with K riders Follow BMP and Mg daily Continue ICU electrolyte replacement protocol (6) V-tach Conclusion/Plan: Resolved After arriving in the ICU on 09/22, he had a 3 beat run of monomorphic V. tach, rate was 160. Plan: Continue Telemetry as ordered Continue to follow his electrolytes, calcium and magnesium and replace if low We will order an Echocardiogram. (7) Hypothermia Conclusion/Plan: Resolved It was caused by being found outside in the [place]. Labs were all reviewed. The hypothermic does not appear to be due to sepsis, although the white count was mildly elevated at 14. He has a normal TSH therefore his hypothermia is not from hypothyroidism. Plan: Continue Telemetry as ordered Remain in the ICU
[2022-09-24] MEDS ORDERED: hydrALAZINE INJ 20 MG/ML VIAL IVP PRN (21:35)
[2022-09-25] MEDS: SODIUM CHLORIDE FLUSH 0.9% 10 ML SYRINGE IVP SCH ×4 (00:33→19:38)
[2022-09-25 05:40] LABS: CALCIUM, IONIZED 1.12 mmol/L (1.15-1.33); VBG PH 7.499 (7.31-7.41)
[2022-09-25 05:50] LABS: CALCIUM 8.8 mg/dL (8.5-10.3); CREATININE 0.6 mg/dL (0.6-1.2); MAGNESIUM 1.8 mg/dL (1.7-2.8); PHOSPHORUS 2.1 mg/dL (2.5-4.6); POTASSIUM 3.7 mmol/L (3.5-5.0)
[2022-09-25] MEDS ORDERED: MAGNESIUM SULFATE 2 GRAM 2 GM/50 ML BAG IV ONE (07:00)
[2022-09-25] MEDS: PRENATAL VITAMIN TABLET PO SCH (07:57)
[2022-09-25] MEDS ORDERED: POTASSIUM CHLOR 10 MEQ/100 ML 10 MEQ/100 ML BAG IV SCH (08:00)
[2022-09-25] MEDS: THIAMINE INJ 100 MG in SODIUM CHLORIDE 0.9% 50 ML IV SCH (08:12)
[2022-09-25] MEDS: FAMOTIDINE 20 MG/2 ML VIAL IVP SCH ×2 (08:13→21:09)
[2022-09-25] MEDS: FOLIC ACID 1 MG TABLET PO SCH (08:13)
[2022-09-25] MEDS: CYANOCOBALAMIN 500 MCG TABLET PO SCH (08:14)
[2022-09-25] MEDS: DEXTROSE 5%-0.9% NACL 1,000 ML IV SCH ×2 (09:52→11:57)
[2022-09-25] MEDS: cloNIDine 0.1 MG PATCH TOP SCH (09:56)
[2022-09-25] MEDS ORDERED: POTASSIUM PHOSPHATE 15 MMOL in SODIUM CHLORIDE 0.9% 250 ML IV ONE (10:00)
--- NOTE | 2022-09-25 12:35 | PHARMACY PROGRESS NOTE ---
- Best Possible Medication History Admit Date and Time: 09/22/22 1123 Processed by: Pharmacy Medication History completed: Yes Patient Interview: Pt unable to participate Secondary Source(s): Pharmacy records (Pt hasn't filled any medications) As the person ultimately responsible for medication therapy, providers are able to order a medication from an existing home medication list in [facility] via the "Reconcile Routine" prior to Confirmation of that medication by business support administrator. Such practice is discouraged except when the physician, in their clinical judgment, deems that a medical need exists for a medication without regard to previous use.
[2022-09-25] MEDS: LORazepam 2 MG/ML VIAL IVP PRN ×2 (15:34→19:37)
[2022-09-25 16:45] LABS: MAGNESIUM 2.2 mg/dL (1.7-2.8); PHOSPHORUS 3.3 mg/dL (2.5-4.6); POTASSIUM 3.4 mmol/L (3.5-5.0)
--- NOTE | 2022-09-25 17:04 | PROVIDER PROGRESS NOTE ---
Subjective - Subjective Pt reports feeling: No change (He is still combative when allowed to awaken between IV Ativan dose) Objective - Vital Signs/Intake & Output Reviewed Vital Signs: Yes Vital Signs: Vital Signs Temp Pulse Resp BP Pulse Ox 09/25/22 16:00 37.2 C 92 24 155/83 H 96 09/25/22 15:00 94 23 157/106 H 95 09/25/22 14:00 37.0 C 95 22 116/101 H 96 Intake & Output: Intake & Output 09/22/22 09/23/22 09/24/22 09/25/22 23:59 23:59 23:59 23:59 Intake Total 4507.333 4791 4983.123 83.333 Output Total 785 2180 6905 3735 Balance 3722.333 8341 -0331.877 -3651.667 - Objective General Appearance: positive: Moderate distress (I witnessed him trying to sit up, tried to bite his nurse though his eyes were closed, pulling at his arm restraints, and screaming) Eyes Bilateral: positive: Other (He does have some lid swelling) ENT: positive: Dry mucous membranes, Other (Face is flushed, red macules on his forehead and nose) Neck: positive: Nml inspection, No JVD Respiratory: positive: No respiratory distress, Breath sounds nml Cardiovascular: positive: Regular rate & rhythm, No murmur Abdomen: positive: No distention Skin: positive: Other (The skin of his torso and arms is warm and dry, but skin of his face is oily, with flushed cheeks, and has many red papules on forehead and nose, some with white cenetrs (acne-like)) Extremities: positive: No pedal edema Neurologic/Psychiatric: positive: Other (Mostly obtunded (getting IV b enzodiazepines), but still awakens and is agitated and combative, and does not follow commands) - Lab Results Fish Bones: 09/26/22 04:25 09/26/22 13:00 Other Labs: Lab Results x24hrs 09/25/22 09/25/22 09/25/22 Range/Units 16:28 04:59 04:59 VBG pH 7.499 H (7.31-7.41) Ionized Calcium 1.12 L (1.15-1.33) mmol/L Sodium 138 (135-145) mmol/L Potassium 3.4 L 3.7 (3.5-5.0) mmol/L Chloride 110 (101-111) mmol/L Carbon Dioxide 23 (21-32) mmol/L Anion Gap 5.0 L (6-13) BUN 5 L (6-20) mg/dL Creatinine 0.6 (0.6-1.2) mg/dL Estimated GFR (MDRD) 130 (>89) Glucose 127 H (70-100) mg/dL Calcium 8.8 (8.5-10.3) mg/dL Phosphorus 3.3 2.1 L (2.5-4.6) mg/dL Magnesium 2.2 1.8 (1.7-2.8) mg/dL Total Creatine Kinase 507 H (22-269) IU/L Assessment/Plan - Problem List (1) Rhabdomyolysis Impression: Related to being found down on the ground outdoors and we do not know how long he was down. When he was somewhat coherent this morning, before being agitated at midday, asked him if he knew how he got here and he remembered being told that people found him outdoors in the [place]. I did not get to ask him if he knew how he got into the [place]. Labs are all reviewed. His CK first worsene, going [id number]>> 1196>> 2036>> 1421>> 507 today. But his creat did not worsen. Plan: Continue with IV saline Avoid nephrotoxin Follow CK and BMP daily (2) Alcohol withdrawal Conclusion/Plan: Patient at first had tremors at rest, and disorientation, then became more agitated on his second day and, between Ativan dioses, when more awake, he has tried to pull out his [place], tried to climb out of bed, has been pulling on his arm restraints, tried to bite his nurse today, so he has received higher (ICU protocol) doses of IV Ativan Plan: Continue CIWA protocol Continue the high-dose ICU protocol IV Ativan dosing, to be given as needed Continue IV hydration, D5 in the IVs to give him some calories. Once he has some clarity and nurse does a swallow screen, will resume his pured diet Will not order p.o. Librium because he is not able to swallow safely (3) Alcohol abuse Conclusion/Plan: As per history. Plan: We no longer have banana bags here because there is a [place] of [place] multivitamins [place] the [place]. We have to order each component separately ther efore continue IV containing D5 and NS, daily IV thiamine, some type of vitamin either IV or p.o. Continue iv Thiamine while he is sedated because of needing Ativan for withdrawal Avoid hepatotoxins Follow LFTs and Ammonia level intermittently When he is awake and can swallow, will order daily lactulose because of the elevated ammonia level. When he is finished going through withdrawal, will request social work to see. (4) Dehydration Conclusion/Plan: All labs were reviewed. He presented with BUN/creatinine of 29/0.9>> improved on iv fluids. Plan: Continue IV fluids Avoid nephrotoxins Follow BMP daily (5) Hypokalemia Conclusion/Plan: Related to poor oral intake due to his alcoholism Plan: Replace with K riders Follow BMP and Mg daily Continue ICU electrolyte replacement protocol (6) V-tach Conclusion/Plan: Resolved After arriving in the ICU on 09/22, he had a 3 beat run of monomorphic V. tach, rate was 160. Plan: Continue Telemetry as ordered Continue to follow his electrolytes, calcium and magnesium and replace if low We will order an Echocardiogram. (7) Hypothermia Conclusion/Plan: Resolved It was caused by being found outside in the [place]. Labs were all reviewed. The hypothermic does not appear to be due to sepsis, although the white count was mildly elevated at 14. He has a normal TSH therefore his hypothermia is not from hypothyroidism. Plan: Continue Telemetry as ordered Remain in the ICU
--- NOTE | 2022-09-25 17:05 | ADVANCE CARE PLANNING NOTE ---
Advance Care Planning - Planning Encounter Date: 09/25/22 Time: 11:00 Purpose: To obtain more detailed history about his usual behavior, and any information about his wishes regarding medical care and CODE STATUS. Parties in Attendance: The patient's nephew and the nephew's were just arriving to visit him, I spoke to them both outside the patient's room. Decisional Capacity of the Patient: He is currently going through active alcohol withdrawal, is needing high-dose ICU-protocol IV Ativan for sedation otherwise he is combative, agitated, screaming. He has no capacity currently to make medical decisions. - Diagnosis for Encounter (1) Alcohol abuse Summary: Patient has a longstanding history of alcohol abuse. He has had alcohol withdrawal in the past, 2 years ago was admitted here for that after being found down on the cement in front of his house when he also had rhabdomyolysis. He is currently in the ICU because of acute alcohol withdrawal, he is combative, screaming, not oriented, needing upper extremity restraints and high-dose ICU- protocol IV benzodiazepines. - Encounter Subjective/Patient's Story: The patient lives alone and is extremely reclusive. He asks for nobody's help. He is very stubborn. He has been drinking alcohol excessively for many decades. His typical day includes going to the grocery store and getting food for that day as well as alcohol for that day. He still drives a car. He does drive several miles to visit his older sister but she has her own medical problems and cannot help him. One day patient drove to the sister's house and the sister reported this event: The patient went to a gas station to fill his car with gasoline and he was fumbling and could not remember how to put the nozzle into the gas tank and how to use the credit card. A passerby helped him buy his gas with that credit card and filled the gas tank. That passerby then called the police concerned that the man was confused. The police followed him to his house, and as he was just getting out of the car, the glass cutter approached, noticed that the patient had urinated on himself and stated that he should get medical attention, to which the patient replied "I will consider it". Because of that event, patient thinks that the police is after him and for the next 2 days he tried to stay at his sister's house, worried that the police were looking for him. The nephew and nephew's report that many members of the family have tried to help him stop alcohol abuse and he refuses. The patient forgets everything, loses his car keys, glasses, wallet, seasonal driver's license, credit cards. After the hospitalization 2 years ago for alcohol withdrawal, this nephew continued to help him daily by weaning down his daily alcohol amount and over 2 months got him down to nearly no alcohol. Over that 2 month time, the nephew took away his car keys and told him he could not drive. After the 2 months, the patient was sober and demanded his car keys back and they were given to him. Shortly after that he started to imbibe heavily with alcohol again. The patient lets no one into his house, it is filthy, he has clothes strewn everywhere and other household belongings. This nephew and the nephew's have tried to clean it and tidy it up several times. The patient gets mad at [facility] for doing that and once again the house becomes in total disarray in a few days. On the day of being found in the [facility] the nephew describes this event: The patient went across the street to get help from [facility], the only person that he trusts slightly. The patient went back home. Soon after that, a dog was barking and somebody at Nestor's house went to see what the dog was barking about and foun d the patient in the [place] with shrubs, which is immediately adjacent to this patient's house. The patient was agitated, on the ground and could not get up, and was speaking gibberish. It is not known how long he was out there. An ambulance was called. The nephew does not know details about any POLST form or his CODE STATUS. Patient has an adopted child and 2 other daughters. The oldest natural child is the DPOA. Objective/Medical Story: Patient was brought to the ER by ambulance after a passerby found him outside in the [facility], unknown how long he was there. He presented hypothermic and with rhabdomyolysis, was communicating then and just starting to have mild tremors. His hypothermia resolved by the second day after being in the [facility] warming unit. He went on to have worsened tremors, agitation, confusion and combativeness. He is currently in the ICU because of acute alcohol withdrawal. When not seddated, he is combative, screaming, not oriented, needing upper extremity restraints and needing high-dose ICU-protocol IV benzodiazepines. His serum CK has decreased after receiving many days of IV saline. Goals of Care: We will continue to treat the patient in the ICU to get him through this acute alcohol withdrawal. When he awakens and can swallow he will be started on a diet. He will then have PT and OT evaluation. When he is stabilized we will also request a cognitive eval from OT. I suspect he will score poorly and have very poor cognitive ability. We will then need Social Work to reach his DPOA to discuss where a safe discharge location would be for this man. The nephew and the nephew's stated to me that the patient's daughter and they all would hope that he could be placed in a permanent prison or memory care unit, since the nephew and nephew's think he can no longer live alone. Plan: As above in goals. Code Status: Do Not Attempt Resuscitation Time spent on advance care plannin min
[2022-09-25] MEDS: POTASSIUM CHLOR 10 MEQ/100 ML 10 MEQ/100 ML BAG IV SCH ×4 (18:15→22:13)
[2022-09-26] MEDS: LORazepam 2 MG/ML VIAL IVP PRN (04:18)
[2022-09-26 05:14] LABS: BASOPHILS % (AUTO) 0.3 %; EOSINOPHILS # (AUTO) 0.2 10^3/uL (0.0-0.7); EOSINOPHILS % (AUTO) 3.1 %; HCT - HEMATOCRIT 45.7 % (42.0-52.0); HGB - HEMOGLOBIN 15.3 g/dL (14.0-18.0); LYMPHOCYTES # (AUTO) 0.9 10^3/uL (1.5-3.5); LYMPHOCYTES % (AUTO) 12.5 %; MEAN CORPUSCULAR HEMOGLOBIN 31.7 pg (27.0-31.0); MEAN CORPUSCULAR HGB CONC 33.5 g/dL (32.0-36.0); MEAN CORPUSCULAR VOLUME 94.8 fL (80.0-94.0); MEAN PLATELET VOLUME 10.8 fL (7.4-11.4); MONOCYTES % (AUTO) 14.7 %; NEUTROPHILS # (AUTO) 4.7 10^3/uL (1.5-6.6); NEUTROPHILS % (AUTO) 69.3 %; PLT - PLATELET COUNT 160 10^3/uL (130-450); RED BLOOD COUNT 4.82 10^6/uL (4.70-6.10); RED CELL DISTRIBUTION WIDTH 14.4 % (12.0-15.0); WHITE BLOOD COUNT 6.8 x10^3/uL (4.8-10.8)
[2022-09-26 05:17] LABS: CALCIUM, IONIZED 1.12 mmol/L (1.15-1.33); VBG PH 7.472 (7.31-7.41)
[2022-09-26 05:27] LABS: CALCIUM 8.8 mg/dL (8.5-10.3); CREATININE 0.7 mg/dL (0.6-1.2); MAGNESIUM 2.1 mg/dL (1.7-2.8); POTASSIUM 3.9 mmol/L (3.5-5.0)
[2022-09-26] MEDS: POTASSIUM CHLOR 10 MEQ/100 ML 10 MEQ/100 ML BAG IV SCH ×4 (06:54→18:50)
[2022-09-26] MEDS: PRENATAL VITAMIN TABLET PO SCH (07:56)
[2022-09-26] MEDS: CYANOCOBALAMIN 500 MCG TABLET PO SCH (08:01)
[2022-09-26] MEDS: FOLIC ACID 1 MG TABLET PO SCH (08:02)
[2022-09-26] MEDS: THIAMINE INJ 100 MG in SODIUM CHLORIDE 0.9% 50 ML IV SCH (08:08)
[2022-09-26] MEDS: FAMOTIDINE 20 MG/2 ML VIAL IVP SCH ×2 (08:08→20:39)
[2022-09-26] MEDS: SODIUM CHLORIDE FLUSH 0.9% 10 ML SYRINGE IVP SCH ×2 (08:09→16:47)
--- NOTE | 2022-09-26 16:44 | PROVIDER PROGRESS NOTE ---
Subjective - Subjective Pt reports feeling: Improved (According to his HOSPITAL NURSE Slick, he opened his eyes to his name then fell back asleep. He has not received Ativan in 24 hours. He is less combative but mostly asleep today.) Objective - Vital Signs/Intake & Output Reviewed Vital Signs: Yes Vital Signs: Vital Signs Temp Pulse Resp BP Pulse Ox 09/26/22 16:00 37 L 09/26/22 15:00 37.1 C 86 21 133/81 H 100 09/26/22 14:00 102 H 18 154/89 H 96 09/26/22 13:00 36.8 C 79 15 134/98 H 96 Intake & Output: Intake & Output 09/23/22 09/24/22 09/25/22 09/26/22 23:59 23:59 23:59 23:59 Intake Total 4791 4983.123 840.333 403.334 Output Total 2180 6905 4118 713 Balance 2611 -1921.877 -3277.667 -309.666 - Objective General Appearance: positive: Lethargic (Withdraws to pain, is asleep snoring occaisionally), Other (Disheveled, oily skin on face, has red macules on forehead and nose with purulent center (acne outbreak)) Eyes Bilateral: positive: Other (Lids appear swollen) ENT: positive: Dry mucous membranes Neck: positive: Nml inspection, No JVD Respiratory: positive: No respiratory distress, Breath sounds nml Cardiovascular: positive: Regular rate & rhythm, No murmur Abdomen: positive: Non-tender, No distention Skin: positive: Other (Skin of his torso arms and extremities appear normal. Skin of his face is flushed, has red macules with purulent center like an acne outbreak on his forehead and nose) Extremities: positive: No pedal edema Neurologic/Psychiatric: positive: Other (Lethargic, withdraws to pain) - Lab Results Fish Bones: 09/26/22 04:25 09/26/22 13:00 Other Labs: Lab Results x24hrs 09/26/22 09/26/22 09/26/22 Range/Units 13:00 04:25 04:25 WBC 6.8 (4.8-10.8) x10^3/uL RBC 4.82 (4.70-6.10) 10^6/uL Hgb 15.3 (14.0-18.0) g/dL Hct 45.7 (42.0-52.0) % MCV 94.8 H (80.0-94.0) fL MCH 31.7 H (27.0-31.0) pg MCHC 33.5 (32.0-36.0) g/dL RDW 14.4 (12.0-15.0) % Plt Count 160 (130-450) 10^3/uL MPV 10.8 (7.4-11.4) fL Neut # (Auto) 4.7 (1.5-6.6) 10^3/uL Lymph # (Auto) 0.9 L (1.5-3.5) 10^3/uL [place] # (Auto) 1.0 (0.0-1.0) 10^3/uL Eos # (Auto) 0.2 (0.0-0.7) 10^3/uL Baso # (Auto) 0.0 (0.0-0.1) 10^3/uL Absolute Nucleated RBC 0.00 x10^3/uL Nucleated RBC % 0.0 /100WBC VBG pH 7.472 H (7.31-7.41) Ionized Calcium 1.12 L (1.15-1.33) mmol/L Sodium (135-145) mmol/L Potassium 3.9 (3.5-5.0) mmol/L Chloride (101-111) mmol/L Carbon Dioxide (21-32) mmol/L Anion Gap (6-13) BUN (6-20) mg/dL Creatinine (0.6-1.2) mg/dL Estimated GFR (MDRD) (>89) Glucose (70-100) mg/dL Calcium (8.5-10.3) mg/dL Phosphorus (2.5-4.6) mg/dL Magnesium (1.7-2.8) mg/dL Total Creatine Kinase (22-269) IU/L 09/26/22 09/25/22 Range/Units 04:25 16:28 WBC (4.8-10.8) x10^3/uL RBC (4.70-6.10) 10^6/uL Hgb (14.0-18.0) g/dL Hct (42.0-52.0) % MCV (80.0-94.0) fL MCH (27.0-31.0) pg MCHC (32.0-36.0) g/dL RDW (12.0-15.0) % Plt Count (130-450) 10^3/uL MPV (7.4-11.4) fL Neut # (Auto) (1.5-6.6) 10^3/uL Lymph # (Auto) (1.5-3.5) 10^3/uL [place] # (Auto) (0.0-1.0) 10^3/uL Eos # (Auto) (0.0-0.7) 10^3/uL Baso # (Auto) (0.0-0.1) 10^3/uL Absolute Nucleated RBC x10^3/uL Nucleated RBC % /100WBC VBG pH (7.31-7.41) Ionized Calcium (1.15-1.33) mmol/L Sodium 138 (135-145) mmol/L Potassium 3.9 3.4 L (3.5-5.0) mmol/L Chloride 109 (101-111) mmol/L Carbon Dioxide 21 (21-32) mmol/L Anion Gap 8.0 (6-13) BUN 10 (6-20) mg/dL Creatinine 0.7 (0.6-1.2) mg/dL Estimated GFR (MDRD) 109 (>89) Glucose 111 H (70-100) mg/dL Calcium 8.8 (8.5-10.3) mg/dL Phosphorus 3.0 3.3 (2.5-4.6) mg/dL Magnesium 2.1 2.2 (1.7-2.8) mg/dL Total Creatine Kinase 190 (22-269) IU/L Assessment/Plan - Problem List (1) Alcohol withdrawal Impression: Patient at first had tremors at rest, and disorientation, then became more agitated on his second day and, between Ativan doses, when more awake, he has tried to pull out his [place], tried to climb out of bed, has been pulling on his arm restraints, tried to bite his nurse, so he has received higher (ICU protocol) doses of IV Ativan. Today the RN tells me he has not had Ativan in 24 hours, is sleeping, not agitated and awakens when his name is called but falls back asleep. RN cannot yet do a swallow screen safely. Plan: Continue CIWA protocol Continue the high-dose ICU protocol IV Ativan dosing, to be given as needed Continue IV hydration, D5 in the IVs to give him some calories. Once he has some clarity and nurse does a swallow screen, will resume his pured diet Will not order p.o. Librium because he is not able to swallow safely (2) Alcohol abuse Conclusion/Plan: As per history. Plan: We no longer have banana bags here because [place]. We have to order each component separately therefore continue IV containing D5 and NS, daily IV thiamine, some type of vitamin either IV or p.o. Continue iv Thiamine while he is sedated on Ativan, as treatment for withdrawal Avoid hepatotoxins Follow LFTs and Ammonia level intermittently When he is awake and can swallow, will order daily lactulose because of the elevated ammonia level. When he is finished going through withdrawal, will request social work to see. (3) Acne When the patient was agitated and straining, his red macules on his face were very evident. His face has been flushed ever since admission, consistent with heavy alcohol use. Yesterday he started to develop papules like acne and today there are many with central purulent heads coming to a point. Plan: I contacted pharmacy to ask if we have any acne medications or soaps and there is no benzylperoxide or any other choice to use for treating acne, on hospital formulary. We will do cleaning, facial hygiene Will order a shower as soon as it is safe to give him a shower (4) Dehydration Conclusion/Plan: Improved. All labs were reviewed. He presented with BUN/creatinine of 29/0.9>> improved on iv fluids. Plan: Continue IV fluids Avoid nephrotoxins Follow BMP daily (5) Hypokalemia Conclusion/Plan: Related to poor oral intake due to his alcoholism Plan: Replace with K riders, continue ICU electrolyte protocol Follow BMP and Mg daily Continue ICU electrolyte replacement protocol (6) V-tach Conclusion/Plan: Resolved After arriving in the ICU on 09/22, he had a 3 beat run of monomorphic V. tach, rate was 160. Plan: Continue Telemetry Continue to follow his electrolytes daily, calcium and magnesium intermittently and replace if low We will order an Echocardiogram. (7) Hypothermia Conclusion/Plan: Resolved It was caused by being found outside in the [place]. Labs were all reviewed. The hypothermic does not appear to be due to sepsis, although the white count was mildly elevated at 14. He has a normal TSH therefore his hypothermia is not f rom hypothyroidism. Plan: Continue Telemetry as ordered Remain in the ICU (8) Rhabdomyolysis Impression: Resolved. Labs were all reviewed and his CK is normal today at Related to being found down on the ground outdoors and we do not know how long he was down. His CK first worsened, going from 915>> 1196>> 2036>> 1421>> 507>> is normal today. His creat did not worsen. Plan: Continue with IV fluids until he is awake enough to take oral diet and liquids
[2022-09-26] MEDS: ACETAMINOPHEN 325 MG TABLET PO PRN (19:45)
[2022-09-26] MEDS ORDERED: MIN OIL/DIMETHICON/COCONUT OIL 92 GM TUBE TOP PRN (20:39)
[2022-09-27] MEDS: DEXTROSE 5%-0.9% NACL 1,000 ML IV SCH (00:18)
[2022-09-27] MEDS: SODIUM CHLORIDE FLUSH 0.9% 10 ML SYRINGE IVP SCH ×3 (00:18→18:50)
[2022-09-27] MEDS: LORazepam 2 MG/ML VIAL IVP PRN ×2 (03:32→13:40)
[2022-09-27 05:06] LABS: CALCIUM, IONIZED 1.18 mmol/L (1.15-1.33); VBG PH 7.449 (7.31-7.41)
[2022-09-27 05:24] LABS: MAGNESIUM 1.9 mg/dL (1.7-2.8); PHOSPHORUS 3.1 mg/dL (2.5-4.6); POTASSIUM 3.7 mmol/L (3.5-5.0)
[2022-09-27] MEDS: POTASSIUM CHLOR 10 MEQ/100 ML 10 MEQ/100 ML BAG IV SCH ×2 (05:42→06:43)
[2022-09-27] MEDS: THIAMINE INJ 100 MG in SODIUM CHLORIDE 0.9% 50 ML IV SCH (09:00)
[2022-09-27 09:03] LABS: ALBUMIN 3.4 g/dL (3.2-5.5); BILIRUBIN,TOTAL 1.2 mg/dL (0.2-1.0); CREATININE 0.6 mg/dL (0.6-1.2); POTASSIUM 3.9 mmol/L (3.5-5.0); TOTAL PROTEIN 6.9 g/dL (6.7-8.2)
[2022-09-27] MEDS: FAMOTIDINE 20 MG/2 ML VIAL IVP SCH ×2 (09:06→21:08)
[2022-09-27] MEDS: PARAB/CET ALC/STRYL ALC/PG/SLS 473 ML BOTTLE TOP PRN ×2 (09:10→14:53)
[2022-09-27] MEDS: CYANOCOBALAMIN 500 MCG TABLET PO SCH (12:40)
[2022-09-27] MEDS: FOLIC ACID 1 MG TABLET PO SCH (12:42)
[2022-09-27] MEDS: PRENATAL VITAMIN TABLET PO SCH (12:42)
[2022-09-27] MEDS: SODIUM CHLORIDE FLUSH 0.9% 10 ML SYRINGE IVP PRN (13:53)
[2022-09-27] MEDS: chlordiazePOXIDE 5 MG CAPSULE PO PRN (18:50)
--- NOTE | 2022-09-27 19:12 | PROVIDER PROGRESS NOTE ---
Subjective - Subjective Pt reports feeling: Improved (He is awakening to his name, speaks, repeats questions asked of him with echolalia, does not open eyes. He quickly falls back asleep. He is able to swallow, as of 1700.) Objective - Vital Signs/Intake & Output Vital Signs: Vital Signs Temp Pulse Resp BP Pulse Ox 09/27/22 19:00 95 16 95/64 98 09/27/22 18:00 90 17 131/87 H 98 09/27/22 17:00 101 H 19 152/92 H 99 09/27/22 16:00 36.9 C 87 15 141/88 H 99 Intake & Output: Intake & Output 09/24/22 09/25/22 09/26/22 09/27/22 23:59 23:59 23:59 23:59 Intake Total 4983.123 522.841 8082.000 551 Output Total 6905 4118 930 1255 Balance -1921.877 -3277.667 1415.000 -704 - Objective General Appearance: positive: No acute distress, Lethargic Eyes Bilateral: positive: No lid inflammation ENT: positive: Other (Face flushed, rd macules on forehead and nose present (no longer have acne-like white heads)) Neck: positive: Nml inspection, No JVD Respiratory: positive: No respiratory distress, Breath sounds nml Cardiovascular: positive: Regular rate & rhythm, No murmur Abdomen: positive: Non-tender, No distention Skin: positive: Warm, Dry, Embolic lesions (Face is red and skin is oily, hands are tanned, rest of body is warm dry and normal color) Neurologic/Psychiatric: positive: Other (Lethargic, awakens to name and speaks, echolalia, swallows, moves all extremities spontaneously, keeps eyes closed, sleeps if not stimulated.) - Lab Results Fish Bones: 09/26/22 04:25 09/27/22 08:40 Other Labs: Lab Results x24hrs 09/27/22 09/27/22 09/27/22 Range/Units 08:40 08:40 04:20 VBG pH 7.449 H (7.31-7.41) Ionized Calcium 1.18 (1.15-1.33) mmol/L Sodium 137 (135-145) mmol/L Potassium 3.9 (3.5-5.0) mmol/L Chloride 111 (101-111) mmol/L Carbon Dioxide 21 (21-32) mmol/L Anion Gap 5.0 L (6-13) BUN 14 (6-20) mg/dL Creatinine 0.6 (0.6-1.2) mg/dL Estimated GFR (MDRD) 130 (>89) Glucose 120 H (70-100) mg/dL Calcium 9.0 (8.5-10.3) mg/dL Phosphorus (2.5-4.6) mg/dL Magnesium (1.7-2.8) mg/dL Total Bilirubin 1.2 H (0.2-1.0) mg/dL AST 22 (10-42) IU/L ALT 24 (10-60) IU/L Alkaline Phosphatase 54 (42-121) IU/L Ammonia 16.5 (7-35) umol/L Total Protein 6.9 (6.7-8.2) g/dL Albumin 3.4 (3.2-5.5) g/dL Globulin 3.5 (2.1-4.2) g/dL Albumin/Globulin Ratio 1.0 (1.0-2.2) 09/27/22 09/26/22 Range/Units 04:20 21:02 VBG pH (7.31-7.41) Ionized Calcium (1.15-1.33) mmol/L Sodium (135-145) mmol/L Potassium 3.7 4.0 (3.5-5.0) mmol/L Chloride (101-111) mmol/L Carbon Dioxide (21-32) mmol/L Anion Gap (6-13) BUN (6-20) mg/dL Creatinine (0.6-1.2) mg/dL Estimated GFR (MDRD) (>89) Glucose (70-100) mg/dL Calcium (8.5-10.3) mg/dL Phosphorus 3.1 (2.5-4.6) mg/dL Magnesium 1.9 (1.7-2.8) mg/dL Total Bilirubin (0.2-1.0) mg/dL AST (10-42) IU/L ALT (10-60) IU/L Alkaline Phosphatase (42-121) IU/L Ammonia (7-35) umol/L Total Protein (6.7-8.2) g/dL Albumin (3.2-5.5) g/dL Globulin (2.1-4.2) g/dL Albumin/Globulin Ratio (1.0-2.2) Assessment/Plan - Problem List (1) Alcohol withdrawal Impression: Patient at first had tremors at rest and disorientation, then became more agitated on his second day and, between Ativan doses, when more awake, he has tried to pull out his [place], tried to climb out of bed, has been pulling on his arm restraints, tried to bite his nurse, so he has received higher (ICU protocol) doses of IV Ativan fo 3 days. Today the RN reports he is sleeping, is mostly not agitated and awakens when his name is called but does not open his eyes. There is echolalia; he repeats the same question asked of him. RN did a swallow screen this afternoon and he can swallow pureed food (I watched him being fed mashed potatoes at 1700) and he can drink through a straw safely, still has eyes closed. Plan: Continue CIWA protocol, with high-dose ICU protocol IV Ativan dosing, to be given as needed Now that he is able to swallow, we will begin him on oral Librium scheduled, so that the Ativan use can be decreased We will start him on a diet and decrease the IV fluid rate (2) Alcohol abuse Conclusion/Plan: As per history. We do not know what his alcohol of choice is. Plan: We no longer have banana bags here because there is a [place] of [place] multivitamins [place] the [place]. We have to order each component separately therefore continue IV containing D5 and NS, daily IV thiamine, some type of vitamin either IV or p.o. Will change his iv Thiamine to oral Thiamine starting tomorrow 09/28, now that he is swallowing. Start a daily oral vitamin Avoid hepatotoxins Follow LFTs and Ammonia level intermittently When he is awake and can drink more than sips, will order daily lactulose because of the elevated ammonia level. When he is finished going through withdrawal, and communicative, will request social work to see. He may have underlying Wernicke/Korsakoff syndrome with encepalopathy, since the family (nephew and nephew's who visited yesterday 09/26), described how forgetful he is and has baseline severe confusion. (3) Acne When the patient was agitated and straining, his red macules on his face were very evident. His face has been flushed ever since admission, consistent with heavy alcohol use. On 09/25 he started to develop papules like acne and on 09/26 there are many raised paplules with central purulent heads coming to a point. I contacted pharmacy to ask if we have any acne medications or soaps and there is no benzylperoxide or any other choice to use for treating acne, on hospital formulary. Plan: Today the pharmacist said they have 1 bottle of benzoyl peroxide mud cleaner operator. We will order cleaning with this, facial hygiene Will order a shower as soon as it is safe to give him a shower (4) Dehydration Conclusion/Plan: Improved. All labs were reviewed. He presented with BUN/creatinine of 29/0.9>> improved on iv fluids. Plan: Continue IV fluids, decrease rate as he starts to drink Avoid nephrotoxins Follow BMP daily (5) Hypokalemia Conclusion/Plan: Related to poor oral intake due to his alcoholism Plan: Replace with K riders, continue ICU electrolyte protocol Follow BMP and Mg daily Continue ICU electrolyte replacement protocol (6) V-tach Conclusion/Plan: Resolved After arriving in the ICU on 09/22, he had a 3 beat run of monomorphic V. tach, rate was 160. Plan: Continue Telemetry Continue to follow his electrolytes daily, calcium and magnesium intermittently and replace if low We obtain an Echocardiogram (no Risk Management Director here except -) (7) Hypothermia Conclusion/Plan: Resolved It was caused by being found outside in the [place]. Labs were all reviewed. The hypothermic does not appear to be due to sepsis, although the white count was mildly elevated at 14. He has a normal TSH therefore his hypothermia is not from hypothyroidism. Plan: Continue Telemetry as ordered Remain in the ICU (8) Rhabdomyolysis Impression: Resolved. Labs were all reviewed and his CK is normal as of yesterday 09/26 This was caused by being found down on the ground outdoors and we do not know how long he was down. His CK first worsened, going from 915>> 1196>> 2036>> 1421>> 507>> is normal now. His creat did not worsen. Plan: Continue with IV fluids until he is awake enough to take oral diet and liquids
[2022-09-28] MEDS: chlordiazePOXIDE 5 MG CAPSULE PO PRN ×4 (00:38→17:21)
[2022-09-28] MEDS: DEXTROSE 5%-0.9% NACL 1,000 ML IV SCH (00:38)
[2022-09-28] MEDS: SODIUM CHLORIDE FLUSH 0.9% 10 ML SYRINGE IVP SCH ×3 (01:00→21:19)
[2022-09-28 05:03] LABS: BASOPHILS # (AUTO) 0.1 10^3/uL (0.0-0.1); BASOPHILS % (AUTO) 0.7 %; EOSINOPHILS # (AUTO) 0.3 10^3/uL (0.0-0.7); EOSINOPHILS % (AUTO) 3.6 %; HCT - HEMATOCRIT 45.1 % (42.0-52.0); LYMPHOCYTES # (AUTO) 0.9 10^3/uL (1.5-3.5); LYMPHOCYTES % (AUTO) 12.4 %; MEAN CORPUSCULAR HEMOGLOBIN 31.6 pg (27.0-31.0); MEAN CORPUSCULAR HGB CONC 33.3 g/dL (32.0-36.0); MEAN CORPUSCULAR VOLUME 94.9 fL (80.0-94.0); MEAN PLATELET VOLUME 10.3 fL (7.4-11.4); MONOCYTES # (AUTO) 1.1 10^3/uL (0.0-1.0); NEUTROPHILS # (AUTO) 5.1 10^3/uL (1.5-6.6); NEUTROPHILS % (AUTO) 68.2 %; PLT - PLATELET COUNT 214 10^3/uL (130-450); RED BLOOD COUNT 4.75 10^6/uL (4.70-6.10); RED CELL DISTRIBUTION WIDTH 14.5 % (12.0-15.0); WHITE BLOOD COUNT 7.5 x10^3/uL (4.8-10.8)
[2022-09-28 05:13] LABS: CREATININE 0.7 mg/dL (0.6-1.2); MAGNESIUM 1.8 mg/dL (1.7-2.8); POTASSIUM 3.8 mmol/L (3.5-5.0)
[2022-09-28] MEDS ORDERED: MAGNESIUM SULFATE 2 GRAM 2 GM/50 ML BAG IV ONE (06:00)
[2022-09-28] MEDS: POTASSIUM CHLOR 10 MEQ/100 ML 10 MEQ/100 ML BAG IV SCH ×2 (08:06→09:15)
[2022-09-28] MEDS: CYANOCOBALAMIN 500 MCG TABLET PO SCH (08:07)
[2022-09-28] MEDS: FOLIC ACID 1 MG TABLET PO SCH (08:07)
[2022-09-28] MEDS: THIAMINE 100 MG TABLET PO SCH (08:07)
[2022-09-28] MEDS: ACETAMINOPHEN 325 MG TABLET PO PRN (08:08)
[2022-09-28] MEDS: FAMOTIDINE 20 MG/2 ML VIAL IVP SCH ×2 (08:38→21:19)
[2022-09-28] MEDS: LORazepam 2 MG/ML VIAL IVP PRN (13:33)
--- NOTE | 2022-09-28 19:13 | PROVIDER PROGRESS NOTE ---
Subjective - Prog Note Date Prog Note Date: 09/28/22 Prog Note Time: 20:10 - Subjective Subjective: He no longer needs high dosing Ativan for CIWA protocol. I have transitioned him to lower dosing. He is on Ativan 1 mg every 2 hours as needed. He worked with physical therapy and we were all surprised at his ability to get release go from supine to sitting and then to standing. Very little time to stand but was able to do it. Current Medications - Current Medications Current Medications: Active Medications Acetaminophen (Acetaminophen 325 Mg Tablet) 650 mg PO Q4HR PRN PRN Reason: Pain 1 to 4, or Fever Last Admin: 09/28/22 08:08 Dose: 650 mg Bacitracin (Bacitracin Zinc Oint 1 Packet) 1 packet TOP PRN PRN PRN Reason: Skin Care Last Admin: 09/22/22 16:11 Dose: 1 packet Chlordiazepoxide HCl (Chlordiazepoxide 5 Mg Capsule) 5 mg PO Q6HR PRN PRN Reason: Alcohol Withdrawal Last Admin: 09/28/22 17:21 Dose: 5 mg Clonidine HCl (Clonidine 0.1 Mg Patch) 1 patch TOP Q7D LAZ Last Admin: 09/25/22 09:56 Dose: 1 patch Cyanocobalamin (Cyanocobalamin 500 Mcg Tablet) 500 mcg PO DAILY LAZ Last Admin: 09/28/22 08:07 Dose: 500 mcg Famotidine (Famotidine 20 Mg/2 Ml Vial) 20 mg IVP BID LAZ Last Admin: 09/28/22 08:38 Dose: 20 mg Hydralazine HCl (Hydralazine Inj 20 Mg/Ml Vial) 10 mg IVP Q8H PRN PRN Reason: sys bp more than 170 Last Admin: 09/24/22 22:05 Dose: 10 mg Dextrose/Sodium Chloride (D5ns) 1,000 mls @ 40 mls/hr IV .Q25H LAZ Last Admin: 09/28/22 00:38 Dose: 40 mls/hr Lorazepam (Lorazepam 2 Mg/Ml Vial) 1 mg IVP Q30M PRN; Protocol PRN Reason: CIWA >8 Last Admin: 09/28/22 13:33 Dose: 1 mg Mineral Oil (Min Oil/Dimethicon/Coconut Oil 92 Gm Tube) 1 applic TOP PRN PRN PRN Reason: Skin Care Last Admin: 09/27/22 04:01 Dose: 1 applic Multi-Ingredient Lotion (Parab/Cet Alc/Stryl Alc/Pg/Sls 473 Ml Bottle) 3 ml TOP TID PRN PRN Reason: Acne Last Admin: 09/27/22 14:53 Dose: 1 applic Ondansetron HCl (Ondansetron 4 Mg/2 Ml Vial) 4 mg IVP Q6HR PRN PRN Reason: Nausea / Vomiting Multivit/Folic Acid/Iron ( Vitamin Tablet) 1 tab PO DAILYWM [facility] Last Admin: 09/27/22 12:42 Dose: 1 tab Sodium Chloride (Sodium Chloride Flush 0.9% 10 Ml Syringe) 10 ml IVP 0100,0900,1700 [facility] Last Admin: 09/28/22 09:00 Dose: 10 ml Sodium Chloride (Sodium Chloride Flush 0.9% 10 Ml Syringe) 10 ml IVP PRN PRN PRN Reason: NEEDED PER PROVIDER ORDERS Last Admin: 09/27/22 13:53 Dose: 10 ml Thiamine HCl (Thiamine 100 Mg Tablet) 100 mg PO DAILY [facility] Last Admin: 09/28/22 08:07 Dose: 100 mg Objective - Vital Signs/Intake & Output Reviewed Vital Signs: Yes Vital Signs: Vital Signs x48h Temp Pulse Pulse Resp BP BP Pulse Ox 09/28/22 16:00 36.7 C 80 16 100/58 L 96 09/28/22 12:28 36.6 C 104 H 17 135/73 H 98 09/28/22 11:15 106 H 110/72 Intake & Output: Intake & Output 09/25/22 09/26/22 09/27/22 09/28/22 23:59 23:59 23:59 23:59 Intake Total 765.116 3682.363 787 6346.333 Output Total 4118 930 1372 362 Balance -3277.667 1415.000 -821 1091.333 - Objective General Appearance: positive: Lethargic, Other (Disheveled white male, rhinophyma nose, red cheeks.) Eyes Bilateral: positive: PERRL, EOMI ENT: positive: No signs of dehydration Neck: positive: No JVD. negative: Stiff neck Respiratory: positive: No respiratory distress. negative: Wheezes, Rales, Rhonchi Cardiovascular: positive: Regular rate & rhythm Abdomen: positive: Non-tender, No organomegaly, Nml bowel sounds, No distention Skin: positive: Warm, Dry Extremities: positive: Full ROM, No pedal edema Neurologic/Psychiatric: positive: CN's nml (2-12), Motor nml, Disoriented to person, Disoriented to place, Disoriented to time, Other (His main problem neurologically he has been his sensorium. Tremors not present right now, just sleepy) - Lab Results Fish Bones: 09/28/22 04:09/28/22 04:29 Other Labs: Lab Results x24hrs 09/28/22 09/28/22 09/22/22 Range/Units 04: 04:29 08:50 WBC 7.5 (4.8-10.8) x10^3/uL RBC 4.75 (4.70-6.10) 10^6/uL Hgb 15.0 (14.0-18.0) g/dL Hct 45.1 (42.0-52.0) % MCV 94.9 H (80.0-94.0) fL MCH 31.6 H (27.0-31.0) pg MCHC 33.3 (32.0-36.0) g/dL RDW 14.5 (12.0-15.0) % Plt Count 214 (130-450) 10^3/uL MPV 10.3 (7.4-11.4) fL Neut # (Auto) 5.1 (1.5-6.6) 10^3/uL Lymph # (Auto) 0.9 L (1.5-3.5) 10^3/uL [place] # (Auto) 1.1 H (0.0-1.0) 10^3/uL Eos # (Auto) 0.3 (0.0-0.7) 10^3/uL Baso # (Auto) 0.1 (0.0-0.1) 10^3/uL Absolute Nucleated RBC 0.00 x10^3/uL Nucleated RBC % 0.0 /100WBC Sodium 140 (135-145) mmol/L Potassium 3.8 (3.5-5.0) mmol/L Chloride 111 (101-111) mmol/L Carbon Dioxide 21 (21-32) mmol/L Anion Gap 8.0 (6-13) BUN 13 (6-20) mg/dL Creatinine 0.7 (0.6-1.2) mg/dL Estimated GFR (MDRD) 109 (>89) Glucose 129 H (70-100) mg/dL POC Whole Bld Glucose 205 H (70 - 100) mg/dL Calcium 9.0 (8.5-10.3) mg/dL Magnesium 1.8 (1.7-2.8) mg/dL Assessment/Plan - Problem List (1) Alcohol withdrawal Impression: Patient at first had tremors at rest and disorientation, then became more agitated on his second day and, between Ativan doses, when more awake, he has tried to pull out his [place], tried to climb out of bed, has been pulling on his arm restraints, tried to bite his nurse, so he has received higher (ICU protocol) doses of IV Ativan for 4 days. 09/27 the RN reported he was sleeping, was mostly not agitated and awakens when his name is called but does not open his eyes. There is echolalia; he repeats the same question asked of him. RN did a swallow screen yesterday afternoon and he can swallow pureed food (hospitalist watched him being fed mashed potatoes at 1700) and he can drink through a straw safely, still has eyes closed. Today is about the same. He is asleep. He opens his eyes when I call his name. Then he goes back to sleep. Plan: Continue CIWA protocol,But change high dose ICU protocol to low-dose. Continue Librium 5 mg every 6 hours so that the Ativan use can be decreased Continue diet, and IV fluids for hydration (2) Alcohol abuse Conclusion/Plan: As per history. We do not know what his alcohol of choice is.He was getting thiamine and folate IV but a separate components and not part of a multivitamin supplementation. He is now on oral thiamine, vitamin. Plan: Avoid hepatotoxins Follow LFTs and Ammonia level intermittently When he is awake and can drink more than sips, will order daily lactulose because of the elevated ammonia level.I hope that is by tomorrow. When he is finished going through withdrawal, and communicative, will request social work to see. He may have underlying Wernicke/Korsakoff syndrome with ence palopathy, since the family (nephew and nephew's who visited 09/26), described how forgetful he is and has baseline severe confusion. (3) Acne When the patient was agitated and straining, his red macules on his face were very evident. His face has been flushed ever since admission, consistent with heavy alcohol use. On 09/25 he started to develop papules like acne and on 09/26 there are many raised paplules with central purulent heads coming to a point. I contacted pharmacy to ask if we have any acne medications or soaps and there is no benzylperoxide or any other choice to use for treating acne, on hospital formulary. Pharmacy thought they had 1 bottle of benzyl peroxide. Today the bottle that the using on the patient is not correct. Plan: Stop the bottle provided by pharmacy, changed to just soap and water and wiping the face (4) Dehydration Conclusion/Plan: Improved. All labs were reviewed. He presented with BUN/creatinine of 29/0.9>>13/0.7 improved on iv fluids. Plan: Continue IV fluids, decrease rate as he starts to drink Avoid nephrotoxins Follow BMP daily (5) Hypokalemia Conclusion/Plan: Related to poor oral intake due to his alcoholism Plan: Replace with K riders, continue ICU electrolyte protocol Follow BMP and Mg daily Continue ICU electrolyte replacement protocol (6) V-tach Conclusion/Plan: Resolved After arriving in the ICU on 09/22, he had a 3 beat run of monomorphic V. tach, rate was 160. Plan: Continue Telemetry Continue to follow his electrolytes daily, calcium and magnesium intermittently and replace if low We obtain an Echocardiogram (no Scout Leaser here except ) (7) Hypothermia Conclusion/Plan: Resolved It was caused by being found outside in the [place]. Labs were all reviewed. The hypothermic does not appear to be due to sepsis, although the white count was mildly elevated at 14. He has a normal TSH therefore his hypothermia is not from hypothyroidism. Plan: Continue Telemetry as ordered Remain in the ICU (8) Rhabdomyolysis Impression: Resolved. Labs were all reviewed and his CK is normal as of 09/26 This was caused by being found down on the ground outdoors and we do not know how long he was down. His CK first worsened, going from 915>> 1196>> 2036>> 1421>> 507>> is normal now. His creat did not worsen. Plan: Continue with IV fluids until he is awake enough to take oral diet and liquids
[2022-09-29] MEDS: SODIUM CHLORIDE FLUSH 0.9% 10 ML SYRINGE IVP SCH ×3 (00:12→16:20)
[2022-09-29] MEDS: DEXTROSE 5%-0.9% NACL 1,000 ML IV SCH (00:20)
[2022-09-29] MEDS: LORazepam 2 MG/ML VIAL IVP PRN ×3 (00:31→20:16)
[2022-09-29] MEDS: SODIUM CHLORIDE FLUSH 0.9% 10 ML SYRINGE IVP PRN ×2 (00:31→20:34)
[2022-09-29 05:07] LABS: CALCIUM 8.8 mg/dL (8.5-10.3); CREATININE 0.7 mg/dL (0.6-1.2); POTASSIUM 3.7 mmol/L (3.5-5.0)
[2022-09-29] MEDS: FAMOTIDINE 20 MG/2 ML VIAL IVP SCH ×2 (09:47→20:34)
[2022-09-29] MEDS: CYANOCOBALAMIN 500 MCG TABLET PO SCH (09:47)
[2022-09-29] MEDS: PRENATAL VITAMIN TABLET PO SCH (09:47)
[2022-09-29] MEDS: THIAMINE 100 MG TABLET PO SCH (09:47)
--- NOTE | 2022-09-29 15:32 | PROVIDER PROGRESS NOTE ---
Subjective - Prog Note Date Prog Note Date: 09/29/22 Prog Note Time: 15:30 - Subjective Subjective: This morning he was not happy to be woken up. But he let me examine him. This afternoon he apologizes for his attitude this morning. Current Medications - Current Medications Current Medications: Active Medications Acetaminophen (Acetaminophen 325 Mg Tablet) 650 mg PO Q4HR PRN PRN Reason: Pain 1 to 4, or Fever Last Admin: 09/28/22 08:08 Dose: 650 mg Bacitracin (Bacitracin Zinc Oint 1 Packet) 1 packet TOP PRN PRN PRN Reason: Skin Care Last Admin: 09/22/22 16:11 Dose: 1 packet Chlordiazepoxide HCl (Chlordiazepoxide 5 Mg Capsule) 5 mg PO Q6HR PRN PRN Reason: Alcohol Withdrawal Last Admin: 09/28/22 17:21 Dose: 5 mg Clonidine HCl (Clonidine 0.1 Mg Patch) 1 patch TOP Q7D [facility] Last Admin: 09/25/22 09:56 Dose: 1 patch Cyanocobalamin (Cyanocobalamin 500 Mcg Tablet) 500 mcg PO DAILY [facility] Last Admin: 09/29/22 09:47 Dose: 500 mcg Famotidine (Famotidine 20 Mg/2 Ml Vial) 20 mg IVP BID [facility] Last Admin: 09/29/22 09:47 Dose: 20 mg Hydralazine HCl (Hydralazine Inj 20 Mg/Ml Vial) 10 mg IVP Q8H PRN PRN Reason: sys bp more than 170 Last Admin: 09/24/22 22:05 Dose: 10 mg Dextrose/Sodium Chloride (D5ns) 1,000 mls @ 40 mls/hr IV .Q25H [facility] Last Admin: 09/29/22 00:20 Dose: 40 mls/hr Lorazepam (Lorazepam 2 Mg/Ml Vial) 1 mg IVP Q30M PRN; Protocol PRN Reason: CIWA >8 Last Admin: 09/29/22 00:31 Dose: 1 mg Mineral Oil (Min Oil/Dimethicon/Coconut Oil 92 Gm Tube) 1 applic TOP PRN PRN PRN Reason: Skin Care Last Admin: 09/27/22 04:01 Dose: 1 applic Multi-Ingredient Lotion (Parab/Cet Alc/Stryl Alc/Pg/Sls 473 Ml Bottle) 3 ml TOP TID PRN PRN Reason: Acne Last Admin: 09/27/22 14:53 Dose: 1 applic Ondansetron HCl (Ondansetron 4 Mg/2 Ml Vial) 4 mg IVP Q6HR PRN PRN Reason: Nausea / Vomiting Multivit/Folic Acid/Iron ( Vitamin Tablet) 1 tab PO DAILYWM [facility] Last Admin: 09/29/22 09:47 Dose: 1 tab Sodium Chloride (Sodium Chloride Flush 0.9% 10 Ml Syringe) 10 ml IVP 0100,0900,1700 [facility] Last Admin: 09/29/22 09:48 Dose: 10 ml Sodium Chloride (Sodium Chloride Flush 0.9% 10 Ml Syringe) 10 ml IVP PRN PRN PRN Reason: NEEDED PER PROVIDER ORDERS Last Admin: 09/29/22 00:31 Dose: 10 ml Thiamine HCl (Thiamine 100 Mg Tablet) 100 mg PO DAILY [facility] Last Admin: 09/29/22 09:47 Dose: 100 mg Objective - Vital Signs/Intake & Output Reviewed Vital Signs: Yes Vital Signs: Vital Signs x48h Pulse Resp BP Pulse Ox 09/29/22 08:22 80 14 140/98 H 96 Intake & Output: Intake & Output 09/26/22 09/27/22 09/28/22 09/29/22 23:59 23:59 23:59 23:59 Intake Total 2345.607 768 5940.333 1128 Output Total 930 1372 362 1 Balance 1415.000 -821 3878.950 4709 - Objective General Appearance: positive: No acute distress, Other (Sleepy this morning, still with psychomotor slowing this afternoon but more alert this afternoon. Disheveled elderly gentleman with acneiform face eruption) Eyes Bilateral: positive: PERRL, EOMI ENT: positive: No signs of dehydration, Other (Early rhinophyma) Neck: positive: No JVD, Lymphadenopathy (R) (Shotty), Lymphadenopathy (L) (Shotty). negative: Stiff neck Respiratory: positive: No respiratory distress, Rhonchi (Clear with a cough.). negative: Wheezes, Rales Cardiovascular: positive: Regular rate & rhythm. negative: Tachycardia Abdomen: positive: Non-tender, No organomegaly, Nml bowel sounds, No distention Skin: positive: Warm, Dry Extremities: positive: Full ROM, No pedal edema Neurologic/Psychiatric: positive: CN's nml (2-12), Motor nml (Except for generalized decondition. Poor truncal stability), Slurred/abnml speech - Lab Results Fish Bones: 09/28/22 04:29 09/29/22 04:22 Other Labs: Lab Results x24hrs 09/29/22 Range/Units 04:22 Sodium 138 (135-145) mmol/L Potassium 3.7 (3.5-5.0) mmol/L Chloride 110 (101-111) mmol/L Carbon Dioxide 22 (21-32) mmol/L Anion Gap 6.0 (6-13) BUN 15 (6-20) mg/dL Creatinine 0.7 (0.6-1.2) mg/dL Estimated GFR (MDRD) 109 (>89) Glucose 125 H (70-100) mg/dL Calcium 8.8 (8.5-10.3) mg/dL Assessment/Plan - Problem List (1) Alcohol withdrawal Impression: Patient at first had tremors at rest and disorientation, then became more agitated on his second day and, between Ativan doses, when more awake, he has tried to pull out his [place], tried to climb out of bed, has been pulling on his arm restraints, tried to bite his nurse, so he has received higher (ICU protocol) doses of IV Ativan for 4 days. 09/27 and 09/28 the RN reported he was sleeping, was mostly not agitated and awakens when his name is called but does not open his eyes. There is echolalia; he repeats the same question asked of him. RN did a swallow screen 09/27 afternoon and he can swallow pureed food (hospitalist watched him being fed mashed potatoes at 1700) and he can drink through a straw safely, still has eyes closed. Yesterday I continued the CIWA protocol but changed from high dose ICU protocol to low-dose Ativan. He was still on Librium 5 mg every 6 hours. His blood pressure and pulse are stable. I do think his alcohol withdrawal has either resolved or almost resolved. Plan: Stop Librium and Ativan. I hope to have him wake up more. Continue diet, and IV fluids for hydration I think the patient is through the worst of his withdrawal. He is now left with deconditioning in an elderly gentleman who had hypothermia and exposure. His DPOA is daughter Cristela. She has been sent group home comparisons and she is looking at [facility], and [facility]. kit planner has left messages with all of these facilities. We will await daughter and facility decisions and he will be discharged. (2) Alcohol abuse Conclusion/Plan: As per history. We do not know what his alcohol of choice is.He was getting thiamine and folate IV but a separate components and not part of a multivitamin supplementation. He is now on oral thiamine, vitamin. Plan: Avoid hepatotoxins Follow LFTs and Ammonia level intermittently Lactulose 10 grams po qod and reassess. First dose today. When he is finished going through withdrawal, and communicative, will request social work to see. 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 (3) Acne When the patient was agitated and straining, his red macules on his face were very evident. His face has been flushed ever since admission, consistent with heavy alcohol use. On 09/25 he started to develop papules like acne and on 09/26 there are many raised paplules with central purulent heads coming to a point. I contacted pharmacy to ask if we have any acne medications or soaps and there is no benzylperoxide or any other choice to use for treating acne, on hospital formulary. Pharmacy thought they had 1 bottle of benzyl peroxide. Today the bottle that the using on the patient is not correct. Plan: start doxycycline 100 mg po bid. (4) Dehydration Conclusion/Plan: Improved. All labs were reviewed. He presented with BUN/creatinine of 29/0.9>>13/0.7>>15/0.7 improved on iv fluids. Plan: dc IVF today Avoid nephrotoxins Follow BMP daily (5) Hypokalemia resolved since 09/26 Conclusion/Plan: Related to poor oral intake due to his alcoholism we Replaced with K riders and now he is med surg status so no longer on electrolyte replacement protocol. Follow BMP and Mg daily I will supplement as needed. (6) V-tach Conclusion/Plan: Resolved After arriving in the ICU on 09/22, he had a 3 beat run of monomorphic V. tach, rate was 160. Overall left ventricular systolic motion normal with an ejection fraction of 55 to 60%. Impaired relaxation consistent with grade 1 diastolic dysfunction. No regional wall motion abnormalities. Paradoxical septal motion consistent with left bundle branch block. Both atria were not well visualized. The right ventricle was normal in size and function. No significant regurgitation. No significant pulmonary hypertension. Plan: Continue Telemetry Continue to follow his electrolytes daily, calcium and magnesium intermittently and replace if low (7) Hypothermia Conclusion/Plan: Resolved It was caused by being found outside in the [place]. Labs were all reviewed. The hypothermic does not appear to be due to sepsis, although the white count was mildly elevated at 14. He has a normal TSH therefore his hypothermia is not from hypothyroidism. Plan: Continue Telemetry as ordered (8) Rhabdomyolysis Impression: Resolved. Labs were all reviewed and his CK is normal as of 09/26 This was caused by being found down on the ground outdoors and we do not know how long he was down. His CK first worsened, going from 915>> 1196>> 2036>> 1421>> 507>> 190 by September 26 is normal now. His creat did not worsen. Plan: IVF will stop today. Med surg status since 09/28
[2022-09-29] MEDS ORDERED: LACTULOSE 10 GM /15 ML UDC PO SCH (16:00)
[2022-09-29] MEDS: chlordiazePOXIDE 5 MG CAPSULE PO SCH (20:13)
[2022-09-30] MEDS: SODIUM CHLORIDE FLUSH 0.9% 10 ML SYRINGE IVP SCH ×3 (00:30→17:05)
[2022-09-30] MEDS: LORazepam 2 MG/ML VIAL IVP PRN (03:00)
[2022-09-30 05:11] LABS: BASOPHILS # (AUTO) 0.1 10^3/uL (0.0-0.1); BASOPHILS % (AUTO) 0.8 %; EOSINOPHILS # (AUTO) 0.3 10^3/uL (0.0-0.7); EOSINOPHILS % (AUTO) 4.3 %; HCT - HEMATOCRIT 44.5 % (42.0-52.0); HGB - HEMOGLOBIN 14.8 g/dL (14.0-18.0); LYMPHOCYTES # (AUTO) 0.9 10^3/uL (1.5-3.5); MEAN CORPUSCULAR HEMOGLOBIN 31.5 pg (27.0-31.0); MEAN CORPUSCULAR HGB CONC 33.3 g/dL (32.0-36.0); MEAN CORPUSCULAR VOLUME 94.7 fL (80.0-94.0); MEAN PLATELET VOLUME 10.1 fL (7.4-11.4); NEUTROPHILS # (AUTO) 4.3 10^3/uL (1.5-6.6); NEUTROPHILS % (AUTO) 65.6 %; PLT - PLATELET COUNT 220 10^3/uL (130-450); RED CELL DISTRIBUTION WIDTH 14.1 % (12.0-15.0); WHITE BLOOD COUNT 6.6 x10^3/uL (4.8-10.8)
[2022-09-30 05:21] LABS: CREATININE 0.7 mg/dL (0.6-1.2); POTASSIUM 3.6 mmol/L (3.5-5.0)
[2022-09-30] MEDS: THIAMINE 100 MG TABLET PO SCH (08:30)
[2022-09-30] MEDS: FAMOTIDINE 20 MG/2 ML VIAL IVP SCH (08:31)
[2022-09-30] MEDS: chlordiazePOXIDE 5 MG CAPSULE PO SCH ×2 (08:32→22:00)
[2022-09-30] MEDS: CYANOCOBALAMIN 500 MCG TABLET PO SCH (08:32)
[2022-09-30] MEDS: PRENATAL VITAMIN TABLET PO SCH (08:32)
[2022-09-30] MEDS: QUEtiapine 25 MG TABLET PO SCH ×2 (13:05→22:00)
[2022-09-30] MEDS ORDERED: LORazepam 2 MG/ML VIAL IVP STA ×2 (15:11→16:48)
--- NOTE | 2022-09-30 16:44 | PROVIDER PROGRESS NOTE ---
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 At this point he is unlikely to be experiencing any further alcohol withdrawal but likely a combination of factors including chronic alcoholism with Warnicke syndrome, hospital delirium, sundowning. Will provide supportive care as above and attempt to regulate circadian rhythm, decrease stressors, maximize nutrition and supplemental therapy - Current Meds Current Meds: Current Medications Generic Name Dose Route Start Last Admin Trade Name Freq PRN Reason Stop Dose Admin Acetaminophen 650 mg 09/22/22 11:23 09/28/22 08:08 Acetaminophen 325 Mg Tablet PO 650 mg Q4HR PRN Administration Pain 1 to 4, or Fever Bacitracin 1 packet 09/22/22 14:19 09/22/22 16:11 Bacitracin Zinc Oint 1 Packet TOP 1 packet PRN PRN Administration Skin Care Chlordiazepoxide HCl 5 mg 09/29/22 21:00 09/30/22 08:32 Chlordiazepoxide 5 Mg Capsule PO 5 mg BID [facility] Administration Clonidine HCl 1 patch 09/25/22 10:00 09/25/22 09:56 Clonidine 0.1 Mg Patch TOP 1 patch Q7D [facility] Administration Cyanocobalamin 500 mcg 09/25/22 09:00 09/30/22 08:32 Cyanocobalamin 500 Mcg Tablet PO 500 mcg DAILY [facility] Administration Hydralazine HCl 10 mg 09/24/22 21:35 09/24/22 22:05 Hydralazine Inj 20 Mg/Ml Vial IVP 10 mg Q8H PRN Administration sys bp more than 170 Lorazepam 0.5 mg 09/29/22 18:13 09/30/22 03:00 Lorazepam 2 Mg/Ml Vial IVP 0.5 mg Q1H PRN Administration Agitation Mineral Oil 1 applic 09/26/22 20:39 09/27/22 04:01 Min Oil/Dimethicon/Coconut Oil 92 Gm Tube TOP 1 applic PRN PRN Administration Skin Care Multi-Ingredient Lotion 3 ml 09/27/22 08:59 09/27/22 14:53 Parab/Cet Alc/Stryl Alc/Pg/Sls 473 Ml Bottle TOP 1 applic TID PRN Administration Acne Multivit/Folic Acid/Iron 1 tab 09/25/22 08:00 09/30/22 08:32 Vitamin Tablet PO 1 tab DAILYWM [facility] Administration Quetiapine Fumarate 25 mg 09/30/22 13:00 09/30/22 13:05 Quetiapine 25 Mg Tablet PO 25 mg BID [facility] Administration Sodium Chloride 10 ml 09/22/22 17:00 09/30/22 08:32 Sodium Chloride Flush 0.9% 10 Ml Syringe IVP 10 ml 0100,0900,1700 [facility] Administration Sodium Chloride 10 ml 09/22/22 11:23 09/29/22 20:34 Sodium Chloride Flush 0.9% 10 Ml Syringe IVP 20 ml PRN PRN Administration NEEDED PER PROVIDER ORDERS Thiamine HCl 100 mg 09/28/22 09:00 09/30/22 08:30 Thiamine 100 Mg Tablet PO 100 mg DAILY [facility] Administration - Lab Result Fish Bone Diagrams: 09/30/22 04:45 09/30/22 04:45 - Additional Planning Condition/Complexity: Stable My Orders: My Active Orders 09/30/22 13:00 QUEtiapine [SEROquel] 25 mg PO BID Subjective - Subjective Patient Reports: No Complaints Objective Vital Signs: Vital Signs - 24 hr 09/29/22 09/30/22 09/30/22 20:00 00:35 08:09 Temperature 36.7 C 36.3 C L 36.3 C L Heart Rate [ 97 74 68 Brachial] Respiratory 16 18 18 Rate Blood Pressure 111/75 [Left Brachial artery] Blood Pressure 127/79 135/79 H [Right Brachial artery] O2 Saturation 96 93 95 09/30/22 16:20 Temperature 36.3 C L Heart Rate [ 93 Brachial] Respiratory 16 Rate Blood Pressure [Left Brachial artery] Blood Pressure 154/101 H [Right Brachial artery] O2 Saturation 99 Oxygen O2 Source Room air I&O (Last 24 Hrs): Intake and Output Totals x24h 09/28/22 09/29/22 09/30/22 23:59 23:59 23:59 Intake Total 7346.943 3610 1300 Output Total 362 1 Balance 2884.703 6919 1300 General: Alert, Other (Intermittently lethargic and agitated with aggressive behavior) HEENT: Atraumatic Neuro: Alert, Non Focal, CN 2-12 Grossly Intact Cardiovascular: Regular rate, Normal S1, Normal S2 Respiratory: Chest non-tender, No respiratory distress Abdomen: Normal bowel sounds Extremities: No clubbing, No cyanosis, No edema Skin: No rashes, No breakdown, No significant lesion - Results Results: Laboratory Results WBC 6.6 x10^3/uL (4.8-10.8) 09/30/22 04:45 RBC 4.70 10^6/uL (4.70-6.10) 09/30/22 04:45 Hgb 14.8 g/dL (14.0-18.0) 09/30/22 04:45 Hct 44.5 % (42.0-52.0) 09/30/22 04:45 MCV 94.7 fL (80.0-94.0) H 09/30/22 04:45 MCH 31.5 pg (27.0-31.0) H 09/30/22 04:45 MCHC 33.3 g/dL (32.0-36.0) 09/30/22 04:45 RDW 14.1 % (12.0-15.0) 09/30/22 04:45 Plt Count 220 10^3/uL (130-450) 09/30/22 04:45 MPV 10.1 fL (7.4-11.4) 09/30/22 04:45 Neut # (Auto) 4.3 10^3/uL (1.5-6.6) 09/30/22 04:45 Lymph # (Auto) 0.9 10^3/uL (1.5-3.5) L 09/30/22 04:45 [place] # (Auto) 1.0 10^3/uL (0.0-1.0) 09/30/22 04:45 Eos # (Auto) 0.3 10^3/uL (0.0-0.7) 09/30/22 04:45 Baso # (Auto) 0.1 10^3/uL (0.0-0.1) 09/30/22 04:45 Absolute Nucleated RBC 0.00 x10^3/uL 09/30/22 04:45 Nucleated RBC % 0.0 /100WBC 09/30/22 04:45 PT 11.3 secs (9.9-12.6) 09/22/22 08:46 INR 1.0 (0.8-1.2) 09/22/22 08:46 VBG pH 7.449 (7.31-7.41) H 09/27/22 04:20 Ionized Calcium 1.18 mmol/L (1.15-1.33) 09/27/22 04:20 Sodium 138 mmol/L (135-145) 09/30/22 04:45 Potassium 3.6 mmol/L (3.5-5.0) 09/30/22 04:45 Chloride 109 mmol/L (101-111) 09/30/22 04:45 Carbon Dioxide 24 mmol/L (21-32) 09/30/22 04:45 Anion Gap 5.0 (6-13) L 09/30/22 04:45 BUN 16 mg/dL (6-20) 09/30/22 04:45 Creatinine 0.7 mg/dL (0.6-1.2) 09/30/22 04:45 Estimated GFR (MDRD) 109 (>89) 09/30/22 04:45 Glucose 106 mg/dL (70-100) H 09/30/22 04:45 POC Whole Bld Glucose 205 mg/dL (70 - 100) H 09/22/22 08:50 Calcium 9.0 mg/dL (8.5-10.3) 09/30/22 04:45 Phosphorus 3.1 mg/dL (2.5-4.6) 09/27/22 04:20 Magnesium 1.8 mg/dL (1.7-2.8) 09/28/22 04:29 Total Bilirubin 1.2 mg/dL (0.2-1.0) H 09/27/22 08:40 Direct Bilirubin 0.2 mg/dL (0.1-0.5) 09/23/22 04:20 AST 22 IU/L (10-42) 09/27/22 08:40 ALT 24 IU/L (10-60) 09/27/22 08:40 Alkaline Phosphatase 54 IU/L (42-121) 09/27/22 08:40 Ammonia 16.5 umol/L (7-35) 09/27/22 08:40 Total Creatine Kinase 190 IU/L (22-269) 09/26/22 04:25 Total Protein 6.9 g/dL (6.7-8.2) 09/27/22 08:40 Albumin 3.4 g/dL (3.2-5.5) 09/27/22 08:40 Globulin 3.5 g/dL (2.1-4.2) 09/27/22 08:40 Albumin/Globulin Ratio 1.0 (1.0-2.2) 09/27/22 08:40 Lipase 37 U/L (22-51) 09/22/22 08:46 Vitamin B12 109 pg/mL (180-914) L 09/23/22 15:47 Folate 4.35 ng/mL (5.90 - >24.8) L 09/23/22 15:47 TSH 1.47 uIU/mL (0.34-5.60) 09/22/22 08:46 Urine Color YELLOW 09/22/22 09:30 Urine Clarity CLEAR (CLEAR) 09/22/22 09:30 Urine pH 5.5 PH (5.0-7.5) 09/22/22 09:30 Ur Specific [place] 1.020 (1.002-1.030) 09/22/22 09:30 Urine Protein NEGATIVE mg/dL (NEGATIVE) 09/22/22 09:30 Urine Glucose (UA) NEGATIVE mg/dL (NEGATIVE) 09/22/22 09:30 Urine Ketones TRACE mg/dL (NEGATIVE) 09/22/22 09:30 Urine Occult Blood SMALL (NEGATIVE) H 09/22/22 09:30 Urine Nitrite NEGATIVE (NEGATIVE) 09/22/22 09:30 Urine Bilirubin NEGATIVE (NEGATIVE) 09/22/22 09:30 Urine Urobilinogen 0.2 (NORMAL) E.U./dL (NORMAL) 09/22/22 09:30 Ur Leukocyte Esterase NEGATIVE (NEGATIVE) 09/22/22 09:30 Urine RBC 0-5 /HPF (0-5) 09/22/22 09:30 Urine WBC 0-3 /HPF (0-3) 09/22/22 09:30 Ur Squamous Epith Cells NONE SEEN (<= Few) 09/22/22 09:30 Urine Bacteria None Seen /HPF (None Seen) 09/22/22 09:30 Urine Casts 3-5 Hyaline Casts /LPF 09/22/22 09:30 Ur Microscopic Review INDICATED 09/22/22 09:30 Urine Culture Comments NOT INDICATED 09/22/22 09:30 Nasal Adenovirus (PCR) NOT DETECTED 09/22/22 10:48 Nasal B. parapertussis DNA (PCR) NOT DETECTED 09/22/22 10:48 Nasal Coronavir 229E PCR NOT DETECTED 09/22/22 10:48 Nasal Coronavir HKU1 PCR NOT DETECTED 09/22/22 10:48 Nasal Coronavir NL63 PCR NOT DETECTED 09/22/22 10:48 Nasal Coronavir OC43 PCR NOT DETECTED 09/22/22 10:48 Nasal Enterovir/Rhinovir PCR NOT DETECTED 09/22/22 10:48 Nasal Influenza B PCR NOT DETECTED 09/22/22 10:48 Nasal Influenza A PCR NOT DETECTED 09/22/22 10:48 Nasal Parainfluen 1 PCR NOT DETECTED 09/22/22 10:48 Nasal Parainfluen 2 PCR NOT DETECTED 09/22/22 10:48 Nasal Parainfluen 3 PCR NOT DETECTED 09/22/22 10:48 Nasal Parainfluen 4 PCR NOT DETECTED 09/22/22 10:48 Nasal RSV (PCR) NOT DETECTED 09/22/22 10:48 Nasal Screen MRSA (PCR) NEGATIVE (NEGATIVE) 09/22/22 12:00 Nasal B.pertussis DNA PCR NOT DETECTED 09/22/22 10:48 Nasal C.pneumoniae (PCR) NOT DETECTED 09/22/22 10:48 Rafa Human Metapneumo PCR NOT DETECTED 09/22/22 10:48 Nasal M.pneumoniae (PCR) NOT DETECTED 09/22/22 10:48 Nasal SARS-CoV-2 (PCR) NOT DETECTED 09/22/22 10:48 Salicylates < 6.0 mg/dL 09/22/22 08:46 Urine Opiates Screen NEGATIVE (NEGATIVE) 09/22/22 09:30 Ur Oxycodone Screen NEGATIVE (NEGATIVE) 09/22/22 09:30 Urine Methadone Screen NEGATIVE (NEGATIVE) 09/22/22 09:30 Ur Propoxyphene Screen NEGATIVE (NEGATIVE) 09/22/22 09:30 Acetaminophen < 10 ug/mL (10-30) L 09/22/22 08:46 Ur Barbiturates Screen NEGATIVE (NEGATIVE) 09/22/22 09:30 Ur Tricyclics Screen NEGATIVE (NEGATIVE) 09/22/22 09:30 Ur Phencyclidine Scrn NEGATIVE (NEGATIVE) 09/22/22 09:30 Ur Amphetamine Screen NEGATIVE (NEGATIVE) 09/22/22 09:30 U Methamphetamines Scrn NEGATIVE (NEGATIVE) 09/22/22 09:30 U Benzodiazepines Scrn NEGATIVE (NEGATIVE) 09/22/22 09:30 Urine Cocaine Screen NEGATIVE (NEGATIVE) 09/22/22 09:30 U Cannabinoids Screen NEGATIVE (NEGATIVE) 09/22/22 09:30 Ethyl Alcohol 55.8 mg/dL 09/22/22 08:46 Serum Ketones NEGATIVE (NEGATIVE) 09/22/22 08:46 ABX Reporting Has patient been on IV antibiotics over the past 48 hours?: No Current Medications - Current Medications Current Medications: Active Medications Acetaminophen (Acetaminophen 325 Mg Tablet) 650 mg PO Q4HR PRN PRN Reason: Pain 1 to 4, or Fever Last Admin: 09/28/22 08:08 Dose: 650 mg Bacitracin (Bacitracin Zinc Oint 1 Packet) 1 packet TOP PRN PRN PRN Reason: Skin Care Last Admin: 09/22/22 16:11 Dose: 1 packet Chlordiazepoxide HCl (Chlordiazepoxide 5 Mg Capsule) 5 mg PO BID [facility] Last Admin: 09/30/22 08:32 Dose: 5 mg Clonidine HCl (Clonidine 0.1 Mg Patch) 1 patch TOP Q7D [facility] Last Admin: 09/25/22 09:56 Dose: 1 patch Cyanocobalamin (Cyanocobalamin 500 Mcg Tablet) 500 mcg PO DAILY [facility] Last Admin: 09/30/22 08:32 Dose: 500 mcg Famotidine (Famotidine 20 Mg Tablet) 20 mg PO BID [facility] Hydralazine HCl (Hydralazine Inj 20 Mg/Ml Vial) 10 mg IVP Q8H PRN PRN Reason: sys bp more than 170 Last Admin: 09/24/22 22:05 Dose: 10 mg Lorazepam (Lorazepam 2 Mg/Ml Vial) 0.5 mg IVP Q1H PRN PRN Reason: Agitation Last Admin: 09/30/22 03:00 Dose: 0.5 mg Lorazepam (Lorazepam 2 Mg/Ml Vial) 1 mg IVP ONCE STA Stop: 09/30/22 16:49 Mineral Oil (Min Oil/Dimethicon/Coconut Oil 92 Gm Tube) 1 applic TOP PRN PRN PRN Reason: Skin Care Last Admin: 09/27/22 04:01 Dose: 1 applic Multi-Ingredient Lotion (Parab/Cet Alc/Stryl Alc/Pg/Sls 473 Ml Bottle) 3 ml TOP TID PRN PRN Reason: Acne Last Admin: 09/27/22 14:53 Dose: 1 applic Ondansetron HCl (Ondansetron 4 Mg/2 Ml Vial) 4 mg IVP Q6HR PRN PRN Reason: Nausea / Vomiting Multivit/Folic Acid/Iron ( Vitamin Tablet) 1 tab PO DAILYWM [facility] Last Admin: 09/30/22 08:32 Dose: 1 tab Quetiapine Fumarate (Quetiapine 25 Mg Tablet) 25 mg PO BID [facility] Last Admin: 09/30/22 13:05 Dose: 25 mg Sodium Chloride (Sodium Chloride Flush 0.9% 10 Ml Syringe) 10 ml IVP 0100,0900,1700 [facility] Last Admin: 09/30/22 08:32 Dose: 10 ml Sodium Chloride (Sodium Chloride Flush 0.9% 10 Ml Syringe) 10 ml IVP PRN PRN PRN Reason: NEEDED PER PROVIDER ORDERS Last Admin: 09/29/22 20:34 Dose: 20 ml Thiamine HCl (Thiamine 100 Mg Tablet) 100 mg PO DAILY [facility] Last Admin: 09/30/22 08:30 Dose: 100 mg No Known Home Medications 09/30/22
[2022-09-30] MEDS: FAMOTIDINE 20 MG TABLET PO SCH (22:00)
[2022-10-01] MEDS: SODIUM CHLORIDE FLUSH 0.9% 10 ML SYRINGE IVP SCH ×3 (01:29→16:56)
[2022-10-01] MEDS: LORazepam 2 MG/ML VIAL IVP PRN ×2 (01:29→18:16)
[2022-10-01 05:33] LABS: BASOPHILS # (AUTO) 0.1 10^3/uL (0.0-0.1); BASOPHILS % (AUTO) 0.9 %; EOSINOPHILS # (AUTO) 0.3 10^3/uL (0.0-0.7); EOSINOPHILS % (AUTO) 4.2 %; HCT - HEMATOCRIT 47.8 % (42.0-52.0); HGB - HEMOGLOBIN 15.7 g/dL (14.0-18.0); LYMPHOCYTES % (AUTO) 15.2 %; MEAN CORPUSCULAR HEMOGLOBIN 31.8 pg (27.0-31.0); MEAN CORPUSCULAR HGB CONC 32.8 g/dL (32.0-36.0); MONOCYTES % (AUTO) 14.9 %; NEUTROPHILS # (AUTO) 4.2 10^3/uL (1.5-6.6); NEUTROPHILS % (AUTO) 64.6 %; PLT - PLATELET COUNT 218 10^3/uL (130-450); RED BLOOD COUNT 4.93 10^6/uL (4.70-6.10); WHITE BLOOD COUNT 6.5 x10^3/uL (4.8-10.8)
[2022-10-01] MEDS: FAMOTIDINE 20 MG TABLET PO SCH ×2 (08:36→20:44)
[2022-10-01] MEDS: QUEtiapine 25 MG TABLET PO SCH ×2 (08:36→20:44)
[2022-10-01] MEDS: THIAMINE 100 MG TABLET PO SCH (08:36)
[2022-10-01] MEDS: chlordiazePOXIDE 5 MG CAPSULE PO SCH ×2 (08:36→20:44)
[2022-10-01] MEDS: CYANOCOBALAMIN 500 MCG TABLET PO SCH (08:36)
[2022-10-01] MEDS: PRENATAL VITAMIN TABLET PO SCH (08:44)
--- NOTE | 2022-10-01 15:32 | PROVIDER PROGRESS NOTE ---
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 Primary cause of delirium is likely Wernicke's - Current Meds Current Meds: Current Medications Generic Name Dose Route Start Last Admin Trade Name Freq PRN Reason Stop Dose Admin Acetaminophen 650 mg 09/22/22 11:23 09/28/22 08:08 Acetaminophen 325 Mg Tablet PO 650 mg Q4HR PRN Administration Pain 1 to 4, or Fever Bacitracin 1 packet 09/22/22 14:19 09/22/22 16:11 Bacitracin Zinc Oint 1 Packet TOP 1 packet PRN PRN Administration Skin Care Chlordiazepoxide HCl 5 mg 09/29/22 21:00 10/01/22 08:36 Chlordiazepoxide 5 Mg Capsule PO 5 mg BID LAZ Administration Clonidine HCl 1 patch 09/25/22 10:00 09/25/22 09:56 Clonidine 0.1 Mg Patch TOP 1 patch Q7D LAZ Administration Cyanocobalamin 500 mcg 09/25/22 09:00 10/01/22 08:36 Cyanocobalamin 500 Mcg Tablet PO 500 mcg DAILY LAZ Administration Famotidine 20 mg 09/30/22 21:00 10/01/22 08:36 Famotidine 20 Mg Tablet PO 20 mg BID LAZ Administration Hydralazine HCl 10 mg 09/24/22 21:35 09/24/22 22:05 Hydralazine Inj 20 Mg/Ml Vial IVP 10 mg Q8H PRN Administration sys bp more than 170 Lorazepam 0.5 mg 09/29/22 18:13 10/01/22 01:29 Lorazepam 2 Mg/Ml Vial IVP 0.5 mg Q1H PRN Administration Agitation Mineral Oil 1 applic 09/26/22 20:39 09/27/22 04:01 Min Oil/Dimethicon/Coconut Oil 92 Gm Tube TOP 1 applic PRN PRN Administration Skin Care Multi-Ingredient Lotion 3 ml 09/27/22 08:59 09/27/22 14:53 Parab/Cet Alc/Stryl Alc/Pg/Sls 473 Ml Bottle TOP 1 applic TID PRN Administration Acne Multivit/Folic Acid/Iron 1 tab 09/25/22 08:00 10/01/22 08:44 Vitamin Tablet PO 1 tab DAILYWM LAZ Administration Quetiapine Fumarate 25 mg 09/30/22 13:00 10/01/22 08:36 Quetiapine 25 Mg Tablet PO 25 mg BID LAZ Administration Sodium Chloride 10 ml 09/22/22 17:00 10/01/22 08:37 Sodium Chloride Flush 0.9% 10 Ml Syringe IVP 10 ml 0100,0900,1700 LAZ Administration Sodium Chloride 10 ml 09/22/22 11:23 09/29/22 20:34 Sodium Chloride Flush 0.9% 10 Ml Syringe IVP 20 ml PRN PRN Administration NEEDED PER PROVIDER ORDERS Thiamine HCl 100 mg 09/28/22 09:00 10/01/22 08:36 Thiamine 100 Mg Tablet PO 100 mg DAILY LAZ Administration - Lab Result Fish Bone Diagrams: 10/01/22 05:25 09/30/22 04:45 Subjective - Subjective Patient Reports: Feeling Better Objective Vital Signs: Vital Signs - 24 hr 09/30/22 10/01/22 10/01/22 16:20 00:37 08:46 Temperature 36.3 C L 36.2 C L 36.4 C L Heart Rate [ 93 77 90 Brachial] Respiratory 16 20 18 Rate Blood Pressure 104/67 [Left Brachial artery] Blood Pressure 154/101 H 133/76 H [Right Brachial artery] O2 Saturation 99 96 100 Oxygen O2 Source Room air I&O (Last 24 Hrs): Intake and Output Totals x24h 09/29/22 09/30/22 10/01/22 23:59 23:59 23:59 Intake Total 1448 1300 960 Output Total 1 Balance 1447 1300 960 General: Alert, Cooperative HEENT: Atraumatic Neuro: Alert, Disoriented, Other (AAO x 1, to person only) Cardiovascular: Regular rate, Normal S1, Normal S2 Respiratory: Chest non-tender, No respiratory distress Abdomen: Normal bowel sounds - Results Results: Laboratory Results WBC 6.5 x10^3/uL (4.8-10.8) 10/01/22 05:25 RBC 4.93 10^6/uL (4.70-6.10) 10/01/22 05:25 Hgb 15.7 g/dL (14.0-18.0) 10/01/22 05:25 Hct 47.8 % (42.0-52.0) 10/01/22 05:25 MCV 97.0 fL (80.0-94.0) H 10/01/22 05:25 MCH 31.8 pg (27.0-31.0) H 10/01/22 05:25 MCHC 32.8 g/dL (32.0-36.0) 10/01/22 05:25 RDW 14.0 % (12.0-15.0) 10/01/22 05:25 Plt Count 218 10^3/uL (130-450) 10/01/22 05:25 MPV 10.0 fL (7.4-11.4) 10/01/22 05:25 Neut # (Auto) 4.2 10^3/uL (1.5-6.6) 10/01/22 05:25 Lymph # (Auto) 1.0 10^3/uL (1.5-3.5) L 10/01/22 05:25 Hood # (Auto) 1.0 10^3/uL (0.0-1.0) 10/01/22 05:25 Eos # (Auto) 0.3 10^3/uL (0.0-0.7) 10/01/22 05:25 Baso # (Auto) 0.1 10^3/uL (0.0-0.1) 10/01/22 05:25 Absolute Nucleated RBC 0.00 x10^3/uL 10/01/22 05:25 Nucleated RBC % 0.0 /100WBC 10/01/22 05:25 PT 11.3 secs (9.9-12.6) 09/22/22 08:46 INR 1.0 (0.8-1.2) 09/22/22 08:46 VBG pH 7.449 (7.31-7.41) H 09/27/22 04:20 Ionized Calcium 1.18 mmol/L (1.15-1.33) 09/27/22 04:20 Sodium 138 mmol/L (135-145) 09/30/22 04:45 Potassium 3.6 mmol/L (3.5-5.0) 09/30/22 04:45 Chloride 109 mmol/L (101-111) 09/30/22 04:45 Carbon Dioxide 24 mmol/L (21-32) 09/30/22 04:45 Anion Gap 5.0 (6-13) L 09/30/22 04:45 BUN 16 mg/dL (6-20) 09/30/22 04:45 Creatinine 0.7 mg/dL (0.6-1.2) 09/30/22 04:45 Estimated GFR (MDRD) 109 (>89) 09/30/22 04:45 Glucose 106 mg/dL (70-100) H 09/30/22 04:45 POC Whole Bld Glucose 205 mg/dL (70 - 100) H 09/22/22 08:50 Calcium 9.0 mg/dL (8.5-10.3) 09/30/22 04:45 Phosphorus 3.1 mg/dL (2.5-4.6) 09/27/22 04:20 Magnesium 1.8 mg/dL (1.7-2.8) 09/28/22 04:29 Total Bilirubin 1.2 mg/dL (0.2-1.0) H 09/27/22 08:40 Direct Bilirubin 0.2 mg/dL (0.1-0.5) 09/23/22 04:20 AST 22 IU/L (10-42) 09/27/22 08:40 ALT 24 IU/L (10-60) 09/27/22 08:40 Alkaline Phosphatase 54 IU/L (42-121) 09/27/22 08:40 Ammonia 16.5 umol/L (7-35) 09/27/22 08:40 Total Creatine Kinase 190 IU/L (22-269) 09/26/22 04:25 Total Protein 6.9 g/dL (6.7-8.2) 09/27/22 08:40 Albumin 3.4 g/dL (3.2-5.5) 09/27/22 08:40 Globulin 3.5 g/dL (2.1-4.2) 09/27/22 08:40 Albumin/Globulin Ratio 1.0 (1.0-2.2) 09/27/22 08:40 Lipase 37 U/L (22-51) 09/22/22 08:46 Vitamin B12 109 pg/mL (180-914) L 09/23/22 15:47 Folate 4.35 ng/mL (5.90 - >24.8) L 09/23/22 15:47 TSH 1.47 uIU/mL (0.34-5.60) 09/22/22 08:46 Urine Color YELLOW 09/22/22 09:30 Urine Clarity CLEAR (CLEAR) 09/22/22 09:30 Urine pH 5.5 PH (5.0-7.5) 09/22/22 09:30 Ur Specific [place] 1.020 (1.002-1.030) 09/22/22 09:30 Urine Protein NEGATIVE mg/dL (NEGATIVE) 09/22/22 09:30 Urine Glucose (UA) NEGATIVE mg/dL (NEGATIVE) 09/22/22 09:30 Urine Ketones TRACE mg/dL (NEGATIVE) 09/22/22 09:30 Urine Occult Blood SMALL (NEGATIVE) H 09/22/22 09:30 Urine Nitrite NEGATIVE (NEGATIVE) 09/22/22 09:30 Urine Bilirubin NEGATIVE (NEGATIVE) 09/22/22 09:30 Urine Urobilinogen 0.2 (NORMAL) E.U./dL (NORMAL) 09/22/22 09:30 Ur Leukocyte Esterase NEGATIVE (NEGATIVE) 09/22/22 09:30 Urine RBC 0-5 /HPF (0-5) 09/22/22 09:30 Urine WBC 0-3 /HPF (0-3) 09/22/22 09:30 Ur Squamous Epith Cells NONE SEEN (<= Few) 09/22/22 09:30 Urine Bacteria None Seen /HPF (None Seen) 09/22/22 09:30 Urine Casts 3-5 Hyaline Casts /LPF 09/22/22 09:30 Ur Microscopic Review INDICATED 09/22/22 09:30 Urine Culture Comments NOT INDICATED 09/22/22 09:30 Nasal Adenovirus (PCR) NOT DETECTED 09/22/22 10:48 Nasal B. parapertussis DNA (PCR) NOT DETECTED 09/22/22 10:48 Nasal Coronavir 229E PCR NOT DETECTED 09/22/22 10:48 Nasal Coronavir HKU1 PCR NOT DETECTED 09/22/22 10:48 Nasal Coronavir NL63 PCR NOT DETECTED 09/22/22 10:48 Nasal Coronavir OC43 PCR NOT DETECTED 09/22/22 10:48 Nasal Enterovir/Rhinovir PCR NOT DETECTED 09/22/22 10:48 Nasal Influenza B PCR NOT DETECTED 09/22/22 10:48 Nasal Influenza A PCR NOT DETECTED 09/22/22 10:48 Nasal Parainfluen 1 PCR NOT DETECTED 09/22/22 10:48 Nasal Parainfluen 2 PCR NOT DETECTED 09/22/22 10:48 Nasal Parainfluen 3 PCR NOT DETECTED 09/22/22 10:48 Nasal Parainfluen 4 PCR NOT DETECTED 09/22/22 10:48 Nasal RSV (PCR) NOT DETECTED 09/22/22 10:48 Nasal Screen MRSA (PCR) NEGATIVE (NEGATIVE) 09/22/22 12:00 Nasal B.pertussis DNA PCR NOT DETECTED 09/22/22 10:48 Nasal C.pneumoniae (PCR) NOT DETECTED 09/22/22 10:48 Rafa Human Metapneumo PCR NOT DETECTED 09/22/22 10:48 Nasal M.pneumoniae (PCR) NOT DETECTED 09/22/22 10:48 Nasal SARS-CoV-2 (PCR) NOT DETECTED 09/22/22 10:48 Salicylates < 6.0 mg/dL 09/22/22 08:46 Urine Opiates Screen NEGATIVE (NEGATIVE) 09/22/22 09:30 Ur Oxycodone Screen NEGATIVE (NEGATIVE) 09/22/22 09:30 Urine Methadone Screen NEGATIVE (NEGATIVE) 09/22/22 09:30 Ur Propoxyphene Screen NEGATIVE (NEGATIVE) 09/22/22 09:30 Acetaminophen < 10 ug/mL (10-30) L 09/22/22 08:46 Ur Barbiturates Screen NEGATIVE (NEGATIVE) 09/22/22 09:30 Ur Tricyclics Screen NEGATIVE (NEGATIVE) 09/22/22 09:30 Ur Phencyclidine Scrn NEGATIVE (NEGATIVE) 09/22/22 09:30 Ur Amphetamine Screen NEGATIVE (NEGATIVE) 09/22/22 09:30 U Methamphetamines Scrn NEGATIVE (NEGATIVE) 09/22/22 09:30 U Benzodiazepines Scrn NEGATIVE (NEGATIVE) 09/22/22 09:30 Urine Cocaine Screen NEGATIVE (NEGATIVE) 09/22/22 09:30 U Cannabinoids Screen NEGATIVE (NEGATIVE) 09/22/22 09:30 Ethyl Alcohol 55.8 mg/dL 09/22/22 08:46 Serum Ketones NEGATIVE (NEGATIVE) 09/22/22 08:46 ABX Reporting Has patient been on IV antibiotics over the past 48 hours?: No Current Medications - Current Medications Current Medications: Medications Summary Acetaminophen (Acetaminophen 325 Mg Tablet) 650 mg PO Q4HR PRN PRN Reason: Pain 1 to 4, or Fever Last Admin: 09/28/22 08:08 Dose: 650 mg Documented by: ALBINO Re-Assess: Acetaminophen Effectiveness Document 09/28/22 09:08 ALBINO (Rec: 09/28/22 12:16 ALBINO [id number]) Effect on Pain or Fever Effective/Ineffective Effective Bacitracin (Bacitracin Zinc Oint 1 Packet) 1 packet TOP PRN PRN PRN Reason: Skin Care Last Admin: 09/22/22 16:11 Dose: 1 packet Documented by: BRI Chlordiazepoxide HCl (Chlordiazepoxide 5 Mg Capsule) 5 mg PO BID ON LICENSE OF [facility] Last Admin: 10/01/22 08:36 Dose: 5 mg Documented by: ROCIO Clonidine HCl (Clonidine 0.1 Mg Patch) 1 patch TOP Q7D ON LICENSE OF [facility] Last Admin: 09/25/22 09:56 Dose: 1 patch Documented by: EAGLE Cyanocobalamin (Cyanocobalamin 500 Mcg Tablet) 500 mcg PO DAILY ON LICENSE OF [facility] Last Admin: 10/01/22 08:36 Dose: 500 mcg Documented by: EHTOB Famotidine (Famotidine 20 Mg Tablet) 20 mg PO BID ON LICENSE OF [facility] Last Admin: 10/01/22 08:36 Dose: 20 mg Documented by: EHTOB Hydralazine HCl (Hydralazine Inj 20 Mg/Ml Vial) 10 mg IVP Q8H PRN PRN Reason: sys bp more than 170 Last Admin: 09/24/22 22:05 Dose: 10 mg Documented by: LISA Blood Pressure Document 09/24/22 22:05 LISA (Rec: 09/24/22 22:05 JOSE ET [id number]) Blood Pressure Blood Pressure (90/60-130/80) 175/101 Source Automatic Patient Position Supine Re-Assess: Blood Pressure Document 09/24/22 22:35 LISA (Rec: 09/24/22 23:42 LISA [id number]) Blood Pressure Blood Pressure (90/60-130/80) 112/70 Source Automatic Patient Position Supine Lorazepam (Lorazepam 2 Mg/Ml Vial) 0.5 mg IVP Q1H PRN PRN Reason: Agitation Last Admin: 10/01/22 01:29 Dose: 0.5 mg Documented by: DIGNA Hussein Score Document 10/01/22 01:29 RO (Rec: 10/01/22 01:29 RO [id number]) Regimen Current Score 0-7 Re-Assess: General PRN Medication Reasses Document 10/01/22 01:59 MM (Rec: 10/01/22 03:47 MM [id number]) Reassessment Effective/Ineffective Effective Mineral Oil (Min Oil/Dimethicon/Coconut Oil 92 Gm Tube) 1 applic TOP PRN PRN PRN Reason: Skin Care Last Admin: 09/27/22 04:01 Dose: 1 applic Documented by: LISA Multi-Ingredient Lotion (Parab/Cet Alc/Stryl Alc/Pg/Sls 473 Ml Bottle) 3 ml TOP TID PRN PRN Reason: Acne Last Admin: 09/27/22 14:53 Dose: 1 applic Documented by: ALBINO Multivit/Folic Acid/Iron ( Vitamin Tablet) 1 tab PO DAILYWM ON LICENSE OF [facility] Last Admin: 10/01/22 08:44 Dose: 1 tab Documented by: ROCIO Quetiapine Fumarate (Quetiapine 25 Mg Tablet) 25 mg PO BID ON LICENSE OF [facility] Last Admin: 10/01/22 08:36 Dose: 25 mg Documented by: EHTOMohamud Sodium Chloride (Sodium Chloride Flush 0.9% 10 Ml Syringe) 10 ml IVP 0100,0900,1700 ON LICENSE OF [facility] Last Admin: 10/01/22 08:37 Dose: 10 ml Documented by: EHTOB Sodium Chloride (Sodium Chloride Flush 0.9% 10 Ml Syringe) 10 ml IVP PRN PRN PRN Reason: NEEDED PER PROVIDER ORDERS Last Admin: 09/29/22 20:34 Dose: 20 ml Documented by: BRENT Comments: Pt given Ativan and Pepcid IVP. Thiamine HCl (Thiamine 100 Mg Tablet) 100 mg PO DAILY ON LICENSE OF [facility] Last Admin: 10/01/22 08:36 Dose: 100 mg Documented by: ROCIO Discontinued Medications Calcium Carbonate/Glycine (Calcium Carbonate Chew 500 Mg Tablet) 1,250 mg PO Q4H ON LICENSE OF [facility]; Protocol Stop: 09/23/22 11:01 Last Admin: 09/23/22 10:08 Dose: 1,250 mg Documented by: EAGLE Chlordiazepoxide HCl (Chlordiazepoxide 5 Mg Capsule) 5 mg PO Q6HR PRN PRN Reason: Alcohol Withdrawal Last Admin: 09/28/22 17:21 Dose: 5 mg Documented by: ALBINO Re-Assess: General PRN Medication Reasses Document 09/28/22 18:21 LISA (Rec: 09/28/22 19:55 JPT [id number]) Reassessment Effective/Ineffective Effective Comment asleep Cyanocobalamin (Cyanocobalamin 1,000 Mcg/Ml Vial) 1,000 mcg IM ONCE ONE Stop: 09/24/22 09:12 Last Admin: 09/24/22 10:01 Dose: 1,000 mcg Documented by: EAGLE IM Injection Site Document 09/24/22 10:01 EAGLE (Rec: 09/24/22 10:01 MT [id number]) Location IM Injection Site Right Deltoid Famotidine (Famotidine 20 Mg/2 Ml Vial) 20 mg IVP BID ON LICENSE OF [facility] Last Admin: 09/30/22 08:31 Dose: 20 mg Documented by: VALE Folic Acid (Folic Acid 1 Mg Tablet) 1 mg PO DAILY ON LICENSE OF [facility] Last Admin: 09/28/22 08:07 Dose: 1 mg Documented by: ALBINO Sodium Chloride (Normal Saline 0.9%) 1,000 mls @ 0 mls/hr IV .Q0M STA Stop: 09/22/22 08:36 Last Infusion: 09/22/22 10:40 Dose: 999 mls/hr Documented by: SC Medication Titration Document 09/22/22 10:40 SC (Rec: 09/22/22 10:40 RI [id number]) Titration Intake Titration Intake 1,000 Cumulative Intake 1,000 Container Volume 0 Elapsed Time 1h 2m Titration Dosing IV Rate 999 Increase/Decrease Infused Cumulative Dose Not Applicable Total Intake (Rx) 1,000 Volume Adjustment/Waste 0 Thiamine HCl 100 mg/ Sodium (Chloride) 51 mls @ 100 mls/hr IV ONCE STA Stop: 09/22/22 09:07 Last Infusion: 09/22/22 10:23 Dose: 100 mls/hr Documented by: SC Medication Titration Document 09/22/22 10:23 SC (Rec: 09/22/22 10:23 SC [id number]) Titration Intake Titration Intake 51 Cumulative Intake 51 Container Volume 0 Elapsed Time 34m Titration Dosing IV Rate 100 Increase/Decrease Infused Cumulative Dose 100 Total Intake (Rx) 51 Volume Adjustment/Waste 0 Potassium Chloride (Potassium Chloride) 10 meq in 100 mls @ 100 mls/hr IV ONCE ONE Stop: 09/22/22 10:38 Last Infusion: 09/22/22 11:32 Dose: 100 mls/hr Documented by: RI Medication Titration Document 09/22/22 11:32 RI (Rec: 09/22/22 11:32 RI [id number]) Titration Intake Titration Intake 100 Cumulative Intake 100 Container Volume 0 Elapsed Time 1h 11m Titration Dosing IV Rate 100 Increase/Decrease Infused Cumulative Dose 10 Total Intake (Rx) 100 Volume Adjustment/Waste 0 Lactated Ringer's (Lr) 1,000 mls @ 500 mls/hr IV .Q2H STA Stop: 09/22/22 13:08 Last Infusion: 09/22/22 12:55 Dose: 0 mls/hr Documented by: [facility] Medication Titration Document 09/22/22 12:55 [facility] (Rec: 09/22/22 12:55 [facility] [id number]) Titration Intake Titration Intake 708 Cumulative Intake 708 Container Volume 0 Elapsed Time 1h 25m Titration Dosing IV Rate 0 Increase/Decrease Infused Cumulative Dose Not Applicable Total Intake (Rx) 708 Volume Adjustment/Waste 292 Dextrose/Sodium Chloride (D5ns) 1,000 mls @ 100 mls/hr IV .Q10H ON LICENSE OF [facility] Last Infusion: 09/22/22 13:34 Dose: 0 mls/hr Documented by: [facility] Medication Titration Document 09/22/22 13:34 [facility] (Rec: 09/22/22 13:35 [facility] [id number]) Titration Intake Titration Intake 65 Cumulative Intake 65 Container Volume 0 Elapsed Time 39m Titration Dosing IV Rate 0 Increase/Decrease Infused Cumulative Dose Not Applicable Total Intake (Rx) 65 Volume Adjustment/Waste 935 Dextrose/Sodium Chloride (D5ns) 1,000 mls @ 200 mls/hr IV .Q5H LAZ Last Infusion: 09/24/22 19:30 Dose: 0 mls/hr Documented by: LISA Medication Titration Document 09/24/22 19:30 LISA (Rec: 09/24/22 19:30 LISA [id number]) Titration Intake Titration Intake 1,000 Cumulative Intake 1,000 Container Volume 0 Elapsed Time 47h 15m Titration Dosing IV Rate 0 Increase/Decrease Infused Cumulative Dose Not Applicable Total Intake (Rx) 8,900 Volume Adjustment/Waste 0 Thiamine HCl 100 mg/ Sodium (Chloride) 51 mls @ 100 mls/hr IV DAILY LAZ Last Infusion: 09/27/22 09:35 Dose: 0 mls/hr Documented by: ALBINO Medication Titration Document 09/27/22 09:35 ALBINO (Rec: 09/27/22 14:52 AIXAG [id number]) Titration Intake Titration Intake 51 Cumulative Intake 51 Container Volume 0 Elapsed Time 3h 55m Titration Dosing IV Rate 0 Increase/Decrease Infused Cumulative Dose 500 Total Intake (Rx) 255 Volume Adjustment/Waste 0 Sodium Chloride (Normal Saline 0.9%) 500 mls @ 999 mls/hr IV ONCE ONE Stop: 09/22/22 13:31 Last Infusion: 09/22/22 14:16 Dose: 0 mls/hr Documented by: [facility] Medication Titration Document 09/22/22 14:16 [facility] (Rec: 09/22/22 14:16 [facility] [id number]) Titration Intake Titration Intake 500 Cumulative Intake 500 Container Volume 0 Elapsed Time 41m Titration Dosing IV Rate 0 Increase/Decrease Infused Cumulative Dose Not Applicable Total Intake (Rx) 500 Volume Adjustment/Waste 0 Potassium Chloride (Potassium Chloride) 10 meq in 100 mls @ 100 mls/hr IV Q1H LAZ; Protocol Stop: 09/22/22 16:59 Last Infusion: 09/22/22 17:10 Dose: 0 mls/hr Documented by: [facility] Medication Titration Document 09/22/22 17:10 [facility] (Rec: 09/22/22 18:07 [facility] [id number]) Titration Intake Titration Intake 100 Cumulative Intake 100 Container Volume 0 Elapsed Time 1h 54m Titration Dosing IV Rate 0 Increase/Decrease Infused Cumulative Dose 18.3333 Total Intake (Rx) 183.333 Volume Adjustment/Waste 0 CALCIUM GLUC 1,000MG/50ML-NACL (Calcium Gluc 1,000mg/50ml-Nacl) 1,000 mg in 50 mls @ 50 mls/hr IV ONCE ONE; Protocol Stop: 09/23/22 19:30 Last Infusion: 09/23/22 19:55 Dose: 0 mls/hr Documented by: LISA Medication Titration Document 09/23/22 19:55 LISA (Rec: 09/24/22 19:29 JPT [id number]) Titration Intake Titration Intake 50 Cumulative Intake 50 Container Volume 0 Elapsed Time 1h 0m Titration Dosing IV Rate 0 Increase/Decrease Infused Cumulative Dose 1000 Total Intake (Rx) 50 Volume Adjustment/Waste 0 Potassium Chloride (Potassium Chloride) 10 meq in 100 mls @ 100 mls/hr IV Q1H LAZ; Protocol Stop: 09/23/22 23:29 Last Infusion: 09/24/22 03:15 Dose: 0 mls/hr Documented by: LISA Medication Titration Document 09/24/22 03:15 LISA (Rec: 09/24/22 19:31 JOSE ET [id number]) Titration Intake Titration Intake 100 Cumulative Intake 100 Container Volume 0 Elapsed Time 7h 5m Titration Dosing IV Rate 0 Increase/Decrease Infused Cumulative Dose 40 Total Intake (Rx) 400 Volume Adjustment/Waste 0 CALCIUM GLUC 1,000MG/50ML-NACL (Calcium Gluc 1,000mg/50ml-Nacl) 1,000 mg in 50 mls @ 50 mls/hr IV ONCE ONE; Protocol Stop: 09/24/22 02:22 Last Infusion: 09/24/22 02:55 Dose: 0 mls/hr Documented by: LISA Medication Titration Document 09/24/22 02:55 LISA (Rec: 09/24/22 19:30 JOSE ET [id number]) Titration Intake Titration Intake 50 Cumulative Intake 50 Container Volume 0 Elapsed Time 1h 1m Titration Dosing IV Rate 0 Increase/Decrease Infused Cumulative Dose 1000 Total Intake (Rx) 50 Volume Adjustment/Waste 0 Potassium Chloride (Potassium Chloride) 10 meq in 100 mls @ 100 mls/hr IV Q1H LAZ; Protocol Stop: 09/24/22 04:59 Last Infusion: 09/24/22 05:30 Dose: 0 mls/hr Documented by: LISA Medication Titration Document 09/24/22 05:30 LISA (Rec: 09/24/22 19:32 JOSE ET [id number]) Titration Intake Titration Intake 100 Cumulative Intake 100 Container Volume 0 Elapsed Time 2h 0m Titration Dosing IV Rate 0 Increase/Decrease Infused Cumulative Dose 20 Total Intake (Rx) 200 Volume Adjustment/Waste 0 Magnesium Sulfate (Magnesium Sulfate) 2 gm in 50 mls @ 50 mls/hr IV ONCE ONE; Protocol Stop: 09/24/22 06:59 Last Infusion: 09/24/22 07:25 Dose: 0 mls/hr Documented by: LISA Medication Titration Document 09/24/22 07:25 LISA (Rec: 09/24/22 19:31 [facility] [id number]) Titration Intake Titration Intake 50 Cumulative Intake 50 Container Volume 0 Elapsed Time 1h 2m Titration Dosing IV Rate 0 Increase/Decrease Infused Cumulative Dose 2 Total Intake (Rx) 50 Volume Adjustment/Waste 0 Folic Acid 1 mg/ Sodium (Chloride) 1,000.2 mls @ 100 mls/hr IV ONCE ONE Stop: 09/24/22 21:00 Last Infusion: 09/24/22 21:56 Dose: 0 mls/hr Documented by: LISA Medication Titration Document 09/24/22 21:56 LISA (Rec: 09/24/22 21:56 [facility] [id number]) Titration Intake Titration Intake 1,000.2 Cumulative Intake 1,000.2 Container Volume 0 Elapsed Time 10h 11m Titration Dosing IV Rate 0 Increase/Decrease Infused Cumulative Dose 1 Total Intake (Rx) 1,000.2 Volume Adjustment/Waste 0 Dextrose/Sodium Chloride (D5ns) 1,000 mls @ 83.33 mls/hr IV .Q12H1M ON LICENSE OF [facility] Last Infusion: 09/26/22 19:33 Dose: 0 mls/hr Documented by: LISA Medication Titration Document 09/26/22 19:33 LISA (Rec: 09/26/22 19:33 [facility] [id number]) Titration Intake Titration Intake 1,000 Cumulative Intake 1,000 Container Volume 0 Elapsed Time 53h 18m Titration Dosing IV Rate 0 Increase/Decrease Infused Cumulative Dose Not Applicable Total Intake (Rx) 1,531.923 Volume Adjustment/Waste 0 Magnesium Sulfate (Magnesium Sulfate) 2 gm in 50 mls @ 50 mls/hr IV ONCE ONE; Protocol Stop: 09/25/22 07:59 Last Infusion: 09/26/22 08:10 Dose: 0 mls/hr Documented by: LISA Medication Titration Document 09/26/22 08:10 LISA (Rec: 09/26/22 19:33 [facility] [id number]) Titration Intake Titration Intake 50 Cumulative Intake 50 Container Volume 0 Elapsed Time 25h 3m Titration Dosing IV Rate 0 Increase/Decrease Infused Cumulative Dose 2 Total Intake (Rx) 50 Volume Adjustment/Waste 0 Potassium Phosphate 15 mmol/ (Sodium Chloride) 255 mls @ 63 mls/hr IV ONCE ONE; Protocol Stop: 09/25/22 14:02 Last Admin: 09/25/22 09:53 Dose: 63 mls/hr Documented by: MT Medication Titration Document 09/25/22 09:53 MT (Rec: 09/25/22 09:53 MT [id number]) Titration Intake Container Volume 255 Elapsed Time 0m Titration Dosing IV Rate 63 Increase/Decrease Started Volume Adjustment/Waste 0 Dextrose/Sodium Chloride (D5ns) 1,000 mls @ 40 mls/hr IV .Q25H LAZ Last Admin: 09/29/22 00:20 Dose: 40 mls/hr Documented by: [facility] Medication Titration Document 09/29/22 00:20 [facility] (Rec: 09/29/22 00:20 [facility] [id number]) Titration Intake Container Volume 1,000 Elapsed Time 3d 3h 7m Titration Dosing IV Rate 40 Increase/Decrease Started/Running Cumulative Dose Not Applicable Total Intake (Rx) 3,004.666 Volume Adjustment/Waste 0 Potassium Chloride (Potassium Chloride) 10 meq in 100 mls @ 100 mls/hr IV Q1H S ; Protocol Stop: 09/25/22 21:59 Last Infusion: 09/25/22 23:20 Dose: 0 mls/hr Documented by: [facility] Medication Titration Document 09/25/22 23:20 [facility] (Rec: 09/25/22 23:25 [facility] [id number]) Titration Intake Titration Intake 100 Cumulative Intake 100 Container Volume 0 Elapsed Time 4h 35m Titration Dosing IV Rate 0 Increase/Decrease Infused Cumulative Dose 40 Total Intake (Rx) 400 Volume Adjustment/Waste 0 Potassium Chloride (Potassium Chloride) 10 meq in 100 mls @ 100 mls/hr IV Q1H LAZ; Protocol Stop: 09/26/22 08:59 Last Infusion: 09/26/22 20:25 Dose: 0 mls/hr Documented by: LISA Medication Titration Document 09/26/22 20:25 [facility] (Rec: 09/26/22 20:25 [facility] [id number]) Titration Intake Titration Intake 100 Cumulative Intake 100 Container Volume 0 Elapsed Time 13h 17m Titration Dosing IV Rate 0 Increase/Decrease Infused Cumulative Dose 20 Total Intake (Rx) 200 Volume Adjustment/Waste 0 Potassium Chloride (Potassium Chloride) 10 meq in 100 mls @ 100 mls/hr IV Q1H LAZ; Protocol Stop: 09/26/22 18:59 Last Infusion: 09/26/22 20:25 Dose: 0 mls/hr Documented by: LISA Medication Titration Document 09/26/22 20:25 LISA (Rec: 09/26/22 20:25 LISA [id number]) Titration Intake Titration Intake 100 Cumulative Intake 100 Container Volume 0 Elapsed Time 2h 35m Titration Dosing IV Rate 0 Increase/Decrease Infused Cumulative Dose 20 Total Intake (Rx) 200 Volume Adjustment/Waste 0 Potassium Chloride (Potassium Chloride) 10 meq in 100 mls @ 100 mls/hr IV Q1H LAZ; Protocol Stop: 09/27/22 07:59 Last Infusion: 09/27/22 07:45 Dose: 100 mls/hr Documented by: ALBINO Medication Titration Document 09/27/22 07:45 ALBINO (Rec: 09/27/22 07:51 ALBINO [id number]) Titration Intake Titration Intake 100 Cumulative Intake 100 Container Volume 0 Elapsed Time 2h 2m Titration Dosing IV Rate 100 Increase/Decrease Infused Cumulative Dose 20 Total Intake (Rx) 200 Volume Adjustment/Waste 0 Potassium Chloride (Potassium Chloride) 10 meq in 100 mls @ 100 mls/hr IV Q1H LAZ; Protocol Stop: 09/28/22 08:59 Last Infusion: 09/28/22 10:15 Dose: 0 mls/hr Documented by: LISA Medication Titration Document 09/28/22 10:15 LISA (Rec: 09/29/22 00:32 LISA [id number]) Titration Intake Titration Intake 100 Cumulative Intake 100 Container Volume 0 Elapsed Time 2h 9m Titration Dosing IV Rate 0 Increase/Decrease Infused Cumulative Dose 20 Total Intake (Rx) 200 Volume Adjustment/Waste 0 Magnesium Sulfate (Magnesium Sulfate) 2 gm in 50 mls @ 50 mls/hr IV ONCE ONE; Protocol Stop: 09/28/22 06:59 Last Infusion: 09/28/22 07:55 Dose: 0 mls/hr Documented by: ALBINO Medication Titration Document 09/28/22 07:55 ALBINO (Rec: 09/28/22 08:44 ALBINO [id number]) Titration Intake Titration Intake 50 Cumulative Intake 50 Container Volume 0 Elapsed Time 1h 0m Titration Dosing IV Rate 0 Increase/Decrease Infused Cumulative Dose 2 Total Intake (Rx) 50 Volume Adjustment/Waste 0 Lactulose (Lactulose 10 Gm /15 Ml Udc) 10 gm PO Q48H LAZ Last Admin: 09/29/22 16:20 Dose: 10 gm Documented by: VALE Lorazepam (Lorazepam 2 Mg/Ml Vial) 1 mg IVP ONCE STA Stop: 09/22/22 09:12 Last Admin: 09/22/22 09:46 Dose: 1 mg Documented by: SC IVP Start/Stop Document 09/22/22 09:46 SC (Rec: 09/22/22 09:49 SC [id number]) Injection Times * IV Site lt ac IVP Start 09:49 IVP Stop 09:52 Lorazepam (Lorazepam 2 Mg/Ml Vial) 1 mg IVP ONCE STA Stop: 09/22/22 11:18 Last Admin: 09/22/22 11:28 Dose: 1 mg Documented by: SC IVP Start/Stop Document 09/22/22 11:28 SC (Rec: 09/22/22 11:29 SC [id number]) Injection Times * IV Site lt fa IVP Start 11:29 IVP Stop 11:32 Lorazepam (Lorazepam 2 Mg/Ml Vial) 1 mg IVP Q30M PRN; Protocol PRN Reason: CIWA >8 Last Admin: 09/23/22 10:51 Dose: 1 mg Documented by: MT CIWA-Ar Score Document 09/23/22 10:51 MT (Rec: 09/23/22 10:51 MT [id number]) Regimen Current Score 21-25 Re-Assess: General PRN Medication Reasses Document 09/23/22 11:21 MT (Rec: 09/23/22 11:44 MT [id number]) Reassessment Effective/Ineffective Ineffective Lorazepam (Lorazepam 2 Mg/Ml Vial) 2 - 20 mg IVP Q15M PRN; Protocol PRN Reason: RASS > 0 Last Admin: 09/27/22 13:40 Dose: 2 mg Documented by: EJG CIWA-Ar Score Document 09/27/22 13:40 EJG (Rec: 09/27/22 13:50 EJG [id number]) Regimen Current Score 12-15 Re-Assess: General PRN Medication Reasses Document 09/27/22 14:10 EJG (Rec: 09/27/22 14:50 EJG [id number]) Reassessment Effective/Ineffective Effective Comment resting quietly Lorazepam (Lorazepam 2 Mg/Ml Vial) 1 mg IVP Q30M PRN; Protocol PRN Reason: CIWA >8 Last Admin: 09/29/22 00:31 Dose: 1 mg Documented by: [facility] CIWA-Ar Score Document 09/29/22 00:31 [facility] (Rec: 09/29/22 00:31 [facility] [id number]) Regimen Current Score 8-11 Re-Assess: General PRN Medication Reasses Document 09/29/22 01:01 LISA (Rec: 09/29/22 05:14 [facility] [id number]) Reassessment Effective/Ineffective Effective Lorazepam (Lorazepam 2 Mg/Ml Vial) 1 mg IVP ONCE STA Stop: 09/30/22 15:12 Last Admin: 09/30/22 15:18 Dose: 1 mg Documented by: VALE Lorazepam (Lorazepam 2 Mg/Ml Vial) 1 mg IVP ONCE STA Stop: 09/30/22 16:49 Last Admin: 09/30/22 17:05 Dose: 1 mg Documented by: VALE Potassium Chloride (Potassium Chloride 20 Meq Tablet) 20 meq PO Q2H LAZ; Protocol Stop: 09/23/22 10:01 Last Admin: 09/23/22 10:08 Dose: 20 meq Documented by: EAGLE Sodium Phosphate (Neutra-Phos 250 Mg Tablet) 250 mg PO Q2H LAZ; Protocol Stop: 09/23/22 09:01 Last Admin: 09/23/22 08:10 Dose: 250 mg Documented by: EAGLE Active Medications Generic Name Dose Route Start Last Admin Trade Name Freq PRN Reason Stop Dose Admin Acetaminophen 650 mg 09/22/22 11:23 09/28/22 08:08 Acetaminophen 325 Mg Tablet PO 650 mg Q4HR PRN Administration Pain 1 to 4, or Fever Bacitracin 1 packet 09/22/22 14:19 09/22/22 16:11 Bacitracin Zinc Oint 1 Packet TOP 1 packet PRN PRN Administration Skin Care Chlordiazepoxide HCl 5 mg 09/29/22 21:00 10/01/22 08:36 Chlordiazepoxide 5 Mg Capsule PO 5 mg BID LAZ Administration Clonidine HCl 1 patch 09/25/22 10:00 09/25/22 09:56 Clonidine 0.1 Mg Patch TOP 1 patch Q7D LAZ Administration Cyanocobalamin 500 mcg 09/25/22 09:00 10/01/22 08:36 Cyanocobalamin 500 Mcg Tablet PO 500 mcg DAILY LAZ Administration Famotidine 20 mg 09/30/22 21:00 10/01/22 08:36 Famotidine 20 Mg Tablet PO 20 mg BID LAZ Administration Hydralazine HCl 10 mg 09/24/22 21:35 09/24/22 22:05 Hydralazine Inj 20 Mg/Ml Vial IVP 10 mg Q8H PRN Administration sys bp more than 170 Lorazepam 0.5 mg 09/29/22 18:13 10/01/22 01:29 Lorazepam 2 Mg/Ml Vial IVP 0.5 mg Q1H PRN Administration Agitation Mineral Oil 1 applic 09/26/22 20:39 09/27/22 04:01 Min Oil/Dimethicon/Coconut Oil 92 Gm Tube TOP 1 applic PRN PRN Administration Skin Care Multi-Ingredient Lotion 3 ml 09/27/22 08:59 09/27/22 14:53 Parab/Cet Alc/Stryl Alc/Pg/Sls 473 Ml Bottle TOP 1 applic TID PRN Administration Acne Ondansetron HCl 4 mg 09/22/22 11:23 Ondansetron 4 Mg/2 Ml Vial IVP Q6HR PRN Nausea / Vomiting Multivit/Folic Acid/Iron 1 tab 09/25/22 08:00 10/01/22 08:44 Vitamin Tablet PO 1 tab DAILYWM LAZ Administration Quetiapine Fumarate 25 mg 09/30/22 13:00 10/01/22 08:36 Quetiapine 25 Mg Tablet PO 25 mg BID LAZ Administration Sodium Chloride 10 ml 09/22/22 17:00 10/01/22 08:37 Sodium Chloride Flush 0.9% 10 Ml Syringe IVP 10 ml 0100,0900,1700 LAZ Administration Sodium Chloride 10 ml 09/22/22 11:23 09/29/22 20:34 Sodium Chloride Flush 0.9% 10 Ml Syringe IVP 20 ml PRN PRN Administration NEEDED PER PROVIDER ORDERS Thiamine HCl 100 mg 09/28/22 09:00 10/01/22 08:36 Thiamine 100 Mg Tablet PO 100 mg DAILY LAZ Administration No Known Home Medications 09/30/22
[2022-10-02] MEDS: SODIUM CHLORIDE FLUSH 0.9% 10 ML SYRINGE IVP SCH ×3 (00:44→16:35)
[2022-10-02] MEDS: ACETAMINOPHEN 325 MG TABLET PO PRN (04:25)
[2022-10-02] MEDS: cloNIDine 0.1 MG PATCH TOP SCH (08:56)
[2022-10-02] MEDS: PRENATAL VITAMIN TABLET PO SCH (08:56)
[2022-10-02] MEDS: chlordiazePOXIDE 5 MG CAPSULE PO SCH (08:56)
[2022-10-02] MEDS: FAMOTIDINE 20 MG TABLET PO SCH ×2 (08:57→21:35)
[2022-10-02] MEDS: QUEtiapine 25 MG TABLET PO SCH ×2 (08:57→21:35)
[2022-10-02] MEDS: THIAMINE 100 MG TABLET PO SCH (08:57)
[2022-10-02] MEDS: CYANOCOBALAMIN 500 MCG TABLET PO SCH (08:57)
--- NOTE | 2022-10-02 13:16 | PROVIDER PROGRESS NOTE ---
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 Primary cause of delirium is likely Wernicke's - Current Meds Current Meds: Current Medications Generic Name Dose Route Start Last Admin Trade Name Freq PRN Reason Stop Dose Admin Acetaminophen 650 mg 09/22/22 11:23 10/02/22 04:25 Acetaminophen 325 Mg Tablet PO 650 mg Q4HR PRN Administration Pain 1 to 4, or Fever Bacitracin 1 packet 09/22/22 14:19 09/22/22 16:11 Bacitracin Zinc Oint 1 Packet TOP 1 packet PRN PRN Administration Skin Care Clonidine HCl 1 patch 09/25/22 10:00 10/02/22 08:56 Clonidine 0.1 Mg Patch TOP 1 patch Q7D LAZ Administration Cyanocobalamin 500 mcg 09/25/22 09:00 10/02/22 08:57 Cyanocobalamin 500 Mcg Tablet PO 500 mcg DAILY LAZ Administration Famotidine 20 mg 09/30/22 21:00 10/02/22 08:57 Famotidine 20 Mg Tablet PO 20 mg BID LAZ Administration Hydralazine HCl 10 mg 09/24/22 21:35 09/24/22 22:05 Hydralazine Inj 20 Mg/Ml Vial IVP 10 mg Q8H PRN Administration sys bp more than 170 Lorazepam 0.5 mg 09/29/22 18:13 10/01/22 18:16 Lorazepam 2 Mg/Ml Vial IVP 0.5 mg Q1H PRN Administration Agitation Mineral Oil 1 applic 09/26/22 20:39 09/27/22 04:01 Min Oil/Dimethicon/Coconut Oil 92 Gm Tube TOP 1 applic PRN PRN Administration Skin Care Multi-Ingredient Lotion 3 ml 09/27/22 08:59 09/27/22 14:53 Parab/Cet Alc/Stryl Alc/Pg/Sls 473 Ml Bottle TOP 1 applic TID PRN Administration Acne Multivit/Folic Acid/Iron 1 tab 09/25/22 08:00 10/02/22 08:56 Vitamin Tablet PO 1 tab DAILYWM LAZ Administration Quetiapine Fumarate 25 mg 09/30/22 13:00 10/02/22 08:57 Quetiapine 25 Mg Tablet PO 25 mg BID LAZ Administration Sodium Chloride 10 ml 09/22/22 17:00 10/02/22 08:57 Sodium Chloride Flush 0.9% 10 Ml Syringe IVP 10 ml 0100,0900,1700 LAZ Administration Sodium Chloride 10 ml 09/22/22 11:23 09/29/22 20:34 Sodium Chloride Flush 0.9% 10 Ml Syringe IVP 20 ml PRN PRN Administration NEEDED PER PROVIDER ORDERS Thiamine HCl 100 mg 09/28/22 09:00 10/02/22 08:57 Thiamine 100 Mg Tablet PO 100 mg DAILY LAZ Administration - Lab Result Lab results reviewed: Yes Fish Bone Diagrams: 10/01/22 05:25 09/30/22 04:45 Objective Vital Signs: Vital Signs - 24 hr 10/01/22 10/02/22 10/02/22 16:39 03:02 03:10 Temperature 36.2 C L 36.8 C 36.8 C Heart Rate [ 78 64 Brachial] Heart Rate [ 64 Monitoring electrodes] Respiratory 18 18 18 Rate Blood Pressure 120/75 150/79 H 150/79 H [Right Brachial artery] O2 Saturation 100 98 98 10/02/22 08:56 Temperature 36.2 C L Heart Rate [ 66 Brachial] Heart Rate [ Monitoring electrodes] Respiratory 18 Rate Blood Pressure 119/72 [Right Brachial artery] O2 Saturation 93 Oxygen O2 Source Room air I&O (Last 24 Hrs): Intake and Output Totals x24h 09/30/22 10/01/22 10/02/22 23:59 23:59 23:59 Intake Total 1300 2200 480 Balance 1300 2200 480 General: No acute distress HEENT: Atraumatic Neuro: Non Focal Cardiovascular: Regular rate, Normal S1, Normal S2 Respiratory: Chest non-tender, No respiratory distress, Breath sounds nml Abdomen: Normal bowel sounds - Results Results: Laboratory Results WBC 6.5 x10^3/uL (4.8-10.8) 10/01/22 05:25 RBC 4.93 10^6/uL (4.70-6.10) 10/01/22 05:25 Hgb 15.7 g/dL (14.0-18.0) 10/01/22 05:25 Hct 47.8 % (42.0-52.0) 10/01/22 05:25 MCV 97.0 fL (80.0-94.0) H 10/01/22 05:25 MCH 31.8 pg (27.0-31.0) H 10/01/22 05:25 MCHC 32.8 g/dL (32.0-36.0) 10/01/22 05:25 RDW 14.0 % (12.0-15.0) 10/01/22 05:25 Plt Count 218 10^3/uL (130-450) 10/01/22 05:25 MPV 10.0 fL (7.4-11.4) 10/01/22 05:25 Neut # (Auto) 4.2 10^3/uL (1.5-6.6) 10/01/22 05:25 Lymph # (Auto) 1.0 10^3/uL (1.5-3.5) L 10/01/22 05:25 [place] # (Auto) 1.0 10^3/uL (0.0-1.0) 10/01/22 05:25 Eos # (Auto) 0.3 10^3/uL (0.0-0.7) 10/01/22 05:25 Baso # (Auto) 0.1 10^3/uL (0.0-0.1) 10/01/22 05:25 Absolute Nucleated RBC 0.00 x10^3/uL 10/01/22 05:25 Nucleated RBC % 0.0 /100WBC 10/01/22 05:25 PT 11.3 secs (9.9-12.6) 09/22/22 08:46 INR 1.0 (0.8-1.2) 09/22/22 08:46 VBG pH 7.449 (7.31-7.41) H 09/27/22 04:20 Ionized Calcium 1.18 mmol/L (1.15-1.33) 09/27/22 04:20 Sodium 138 mmol/L (135-145) 09/30/22 04:45 Potassium 3.6 mmol/L (3.5-5.0) 09/30/22 04:45 Chloride 109 mmol/L (101-111) 09/30/22 04:45 Carbon Dioxide 24 mmol/L (21-32) 09/30/22 04:45 Anion Gap 5.0 (6-13) L 09/30/22 04:45 BUN 16 mg/dL (6-20) 09/30/22 04:45 Creatinine 0.7 mg/dL (0.6-1.2) 09/30/22 04:45 Estimated GFR (MDRD) 109 (>89) 09/30/22 04:45 Glucose 106 mg/dL (70-100) H 09/30/22 04:45 POC Whole Bld Glucose 205 mg/dL (70 - 100) H 09/22/22 08:50 Calcium 9.0 mg/dL (8.5-10.3) 09/30/22 04:45 Phosphorus 3.1 mg/dL (2.5-4.6) 09/27/22 04:20 Magnesium 1.8 mg/dL (1.7-2.8) 09/28/22 04:29 Total Bilirubin 1.2 mg/dL (0.2-1.0) H 09/27/22 08:40 Direct Bilirubin 0.2 mg/dL (0.1-0.5) 09/23/22 04:20 AST 22 IU/L (10-42) 09/27/22 08:40 ALT 24 IU/L (10-60) 09/27/22 08:40 Alkaline Phosphatase 54 IU/L (42-121) 09/27/22 08:40 Ammonia 16.5 umol/L (7-35) 09/27/22 08:40 Total Creatine Kinase 190 IU/L (22-269) 09/26/22 04:25 Total Protein 6.9 g/dL (6.7-8.2) 09/27/22 08:40 Albumin 3.4 g/dL (3.2-5.5) 09/27/22 08:40 Globulin 3.5 g/dL (2.1-4.2) 09/27/22 08:40 Albumin/Globulin Ratio 1.0 (1.0-2.2) 09/27/22 08:40 Lipase 37 U/L (22-51) 09/22/22 08:46 Vitamin B12 109 pg/mL (180-914) L 09/23/22 15:47 Folate 4.35 ng/mL (5.90 - >24.8) L 09/23/22 15:47 TSH 1.47 uIU/mL (0.34-5.60) 09/22/22 08:46 Urine Color YELLOW 09/22/22 09:30 Urine Clarity CLEAR (CLEAR) 09/22/22 09:30 Urine pH 5.5 PH (5.0-7.5) 09/22/22 09:30 Ur Specific [place] 1.020 (1.002-1.030) 09/22/22 09:30 Urine Protein NEGATIVE mg/dL (NEGATIVE) 09/22/22 09:30 Urine Glucose (UA) NEGATIVE mg/dL (NEGATIVE) 09/22/22 09:30 Urine Ketones TRACE mg/dL (NEGATIVE) 09/22/22 09:30 Urine Occult Blood SMALL (NEGATIVE) H 09/22/22 09:30 Urine Nitrite NEGATIVE (NEGATIVE) 09/22/22 09:30 Urine Bilirubin NEGATIVE (NEGATIVE) 09/22/22 09:30 Urine Urobilinogen 0.2 (NORMAL) E.U./dL (NORMAL) 09/22/22 09:30 Ur Leukocyte Esterase NEGATIVE (NEGATIVE) 09/22/22 09:30 Urine RBC 0-5 /HPF (0-5) 09/22/22 09:30 Urine WBC 0-3 /HPF (0-3) 09/22/22 09:30 Ur Squamous Epith Cells NONE SEEN (<= Few) 09/22/22 09:30 Urine Bacteria None Seen /HPF (None Seen) 09/22/22 09:30 Urine Casts 3-5 Hyaline Casts /LPF 09/22/22 09:30 Ur Microscopic Review INDICATED 09/22/22 09:30 Urine Culture Comments NOT INDICATED 09/22/22 09:30 Nasal Adenovirus (PCR) NOT DETECTED 09/22/22 10:48 Nasal B. parapertussis DNA (PCR) NOT DETECTED 09/22/22 10:48 Nasal Coronavir 229E PCR NOT DETECTED 09/22/22 10:48 Nasal Coronavir HKU1 PCR NOT DETECTED 09/22/22 10:48 Nasal Coronavir NL63 PCR NOT DETECTED 09/22/22 10:48 Nasal Coronavir OC43 PCR NOT DETECTED 09/22/22 10:48 Nasal Enterovir/Rhinovir PCR NOT DETECTED 09/22/22 10:48 Nasal Influenza B PCR NOT DETECTED 09/22/22 10:48 Nasal Influenza A PCR NOT DETECTED 09/22/22 10:48 Nasal Parainfluen 1 PCR NOT DETECTED 09/22/22 10:48 Nasal Parainfluen 2 PCR NOT DETECTED 09/22/22 10:48 Nasal Parainfluen 3 PCR NOT DETECTED 09/22/22 10:48 Nasal Parainfluen 4 PCR NOT DETECTED 09/22/22 10:48 Nasal RSV (PCR) NOT DETECTED 09/22/22 10:48 Nasal Screen MRSA (PCR) NEGATIVE (NEGATIVE) 09/22/22 12:00 Nasal B.pertussis DNA PCR NOT DETECTED 09/22/22 10:48 Nasal C.pneumoniae (PCR) NOT DETECTED 09/22/22 10:48 Rafa Human Metapneumo PCR NOT DETECTED 09/22/22 10:48 Nasal M.pneumoniae (PCR) NOT DETECTED 09/22/22 10:48 Nasal SARS-CoV-2 (PCR) NOT DETECTED 09/22/22 10:48 Salicylates < 6.0 mg/dL 09/22/22 08:46 Urine Opiates Screen NEGATIVE (NEGATIVE) 09/22/22 09:30 Ur Oxycodone Screen NEGATIVE (NEGATIVE) 09/22/22 09:30 Urine Methadone Screen NEGATIVE (NEGATIVE) 09/22/22 09:30 Ur Propoxyphene Screen NEGATIVE (NEGATIVE) 09/22/22 09:30 Acetaminophen < 10 ug/mL (10-30) L 09/22/22 08:46 Ur Barbiturates Screen NEGATIVE (NEGATIVE) 09/22/22 09:30 Ur Tricyclics Screen NEGATIVE (NEGATIVE) 09/22/22 09:30 Ur Phencyclidine Scrn NEGATIVE (NEGATIVE) 09/22/22 09:30 Ur Amphetamine Screen NEGATIVE (NEGATIVE) 09/22/22 09:30 U Methamphetamines Scrn NEGATIVE (NEGATIVE) 09/22/22 09:30 U Benzodiazepines Scrn NEGATIVE (NEGATIVE) 09/22/22 09:30 Urine Cocaine Screen NEGATIVE (NEGATIVE) 09/22/22 09:30 U Cannabinoids Screen NEGATIVE (NEGATIVE) 09/22/22 09:30 Ethyl Alcohol 55.8 mg/dL 09/22/22 08:46 Serum Ketones NEGATIVE (NEGATIVE) 09/22/22 08:46 ABX Reporting Has patient been on IV antibiotics over the past 48 hours?: No
[2022-10-03] MEDS: SODIUM CHLORIDE FLUSH 0.9% 10 ML SYRINGE IVP SCH ×3 (08:41→19:25)
[2022-10-03] MEDS: PRENATAL VITAMIN TABLET PO SCH (08:42)
[2022-10-03] MEDS: FAMOTIDINE 20 MG TABLET PO SCH ×2 (08:42→19:47)
[2022-10-03] MEDS: QUEtiapine 25 MG TABLET PO SCH ×2 (08:42→19:48)
[2022-10-03] MEDS: THIAMINE 100 MG TABLET PO SCH (08:42)
[2022-10-03] MEDS: CYANOCOBALAMIN 500 MCG TABLET PO SCH (08:42)
[2022-10-03] MEDS: cloNIDine 0.1 MG PATCH TOP SCH (10:50)
[2022-10-03] MEDS: LORazepam 2 MG/ML VIAL IVP PRN ×2 (13:01→19:15)
--- NOTE | 2022-10-03 15:11 | PROVIDER PROGRESS NOTE ---
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 Has received adequate thiamine replacement We will continue thiamine 100 mg daily Provide supportive care, 09/30 started Seroquel 25 mg twice daily Behavior seems improved Cont current meds (2) Alcohol withdrawal delirium Assessment/Plan: Resolved - Current Meds Current Meds: Current Medications Generic Name Dose Route Start Last Admin Trade Name Freq PRN Reason Stop Dose Admin Acetaminophen 650 mg 09/22/22 11:23 10/02/22 04:25 Acetaminophen 325 Mg Tablet PO 650 mg Q4HR PRN Administration Pain 1 to 4, or Fever Bacitracin 1 packet 09/22/22 14:19 09/22/22 16:11 Bacitracin Zinc Oint 1 Packet TOP 1 packet PRN PRN Administration Skin Care Clonidine HCl 1 patch 09/25/22 10:00 10/03/22 10:50 Clonidine 0.1 Mg Patch TOP 1 patch Q7D LAZ Administration Cyanocobalamin 500 mcg 09/25/22 09:00 10/03/22 08:42 Cyanocobalamin 500 Mcg Tablet PO 500 mcg DAILY LAZ Administration Famotidine 20 mg 09/30/22 21:00 10/03/22 08:42 Famotidine 20 Mg Tablet PO 20 mg BID LAZ Administration Hydralazine HCl 10 mg 09/24/22 21:35 09/24/22 22:05 Hydralazine Inj 20 Mg/Ml Vial IVP 10 mg Q8H PRN Administration sys bp more than 170 Lorazepam 0.5 mg 09/29/22 18:13 10/03/22 13:01 Lorazepam 2 Mg/Ml Vial IVP 0.5 mg Q1H PRN Administration Agitation Mineral Oil 1 applic 09/26/22 20:39 09/27/22 04:01 Min Oil/Dimethicon/Coconut Oil 92 Gm Tube TOP 1 applic PRN PRN Administration Skin Care Multi-Ingredient Lotion 3 ml 09/27/22 08:59 09/27/22 14:53 Parab/Cet Alc/Stryl Alc/Pg/Sls 473 Ml Bottle TOP 1 applic TID PRN Administration Acne Multivit/Folic Acid/Iron 1 tab 04/08/23 08:00 10/03/22 08:42 Vitamin Tablet PO 1 tab DAILYWM LAZ Administration Quetiapine Fumarate 25 mg 09/30/22 13:00 10/03/22 08:42 Quetiapine 25 Mg Tablet PO 25 mg BID LAZ Administration Sodium Chloride 10 ml 09/22/22 17:00 10/03/22 08:49 Sodium Chloride Flush 0.9% 10 Ml Syringe IVP 10 ml 0100,0900,1700 LAZ Administration Sodium Chloride 10 ml 09/22/22 11:23 09/29/22 20:34 Sodium Chloride Flush 0.9% 10 Ml Syringe IVP 20 ml PRN PRN Administration NEEDED PER PROVIDER ORDERS Thiamine HCl 100 mg 09/28/22 09:00 10/03/22 08:42 Thiamine 100 Mg Tablet PO 100 mg DAILY LAZ Administration - Lab Result Lab results reviewed: Yes Fish Bone Diagrams: 10/01/22 05:25 09/30/22 04:45 Subjective - Subjective Patient Reports: Feeling Better Objective Vital Signs: Vital Signs - 24 hr 10/02/22 10/03/22 10/03/22 15:37 06:58 07:38 Temperature 36.5 C 36.7 C 36.4 C L Heart Rate [ 75 66 66 Brachial] Respiratory 16 15 18 Rate Blood Pressure 112/66 115/72 121/72 [Right Brachial artery] O2 Saturation 100 99 99 Oxygen O2 Source Room air I&O (Last 24 Hrs): Intake and Output Totals x24h 10/01/22 10/02/22 10/03/22 23:59 23:59 23:59 Intake Total 2200 1460 1480 Output Total 450 400 Balance 2200 1010 1080 General: Alert, No acute distress HEENT: Atraumatic, EOMI Neuro: Alert, Other (AAO x 2) Cardiovascular: Regular rate, Normal S1, Normal S2 Respiratory: Chest non-tender Abdomen: Normal bowel sounds Genitourinary: Normal Inspection - Results Results: Laboratory Results WBC 6.5 x10^3/uL (4.8-10.8) 10/01/22 05:25 RBC 4.93 10^6/uL (4.70-6.10) 10/01/22 05:25 Hgb 15.7 g/dL (14.0-18.0) 10/01/22 05:25 Hct 47.8 % (42.0-52.0) 10/01/22 05:25 MCV 97.0 fL (80.0-94.0) H 10/01/22 05:25 MCH 31.8 pg (27.0-31.0) H 10/01/22 05:25 MCHC 32.8 g/dL (32.0-36.0) 10/01/22 05:25 RDW 14.0 % (12.0-15.0) 10/01/22 05:25 Plt Count 218 10^3/uL (130-450) 10/01/22 05:25 MPV 10.0 fL (7.4-11.4) 10/01/22 05:25 Neut # (Auto) 4.2 10^3/uL (1.5-6.6) 10/01/22 05:25 Lymph # (Auto) 1.0 10^3/uL (1.5-3.5) L 10/01/22 05:25 [place] # (Auto) 1.0 10^3/uL (0.0-1.0) 10/01/22 05:25 Eos # (Auto) 0.3 10^3/uL (0.0-0.7) 10/01/22 05:25 Baso # (Auto) 0.1 10^3/uL (0.0-0.1) 10/01/22 05:25 Absolute Nucleated RBC 0.00 x10^3/uL 10/01/22 05:25 Nucleated RBC % 0.0 /100WBC 10/01/22 05:25 PT 11.3 secs (9.9-12.6) 09/22/22 08:46 INR 1.0 (0.8-1.2) 09/22/22 08:46 VBG pH 7.449 (7.31-7.41) H 09/27/22 04:20 Ionized Calcium 1.18 mmol/L (1.15-1.33) 09/27/22 04:20 Sodium 138 mmol/L (135-145) 09/30/22 04:45 Potassium 3.6 mmol/L (3.5-5.0) 09/30/22 04:45 Chloride 109 mmol/L (101-111) 09/30/22 04:45 Carbon Dioxide 24 mmol/L (21-32) 09/30/22 04:45 Anion Gap 5.0 (6-13) L 09/30/22 04:45 BUN 16 mg/dL (6-20) 09/30/22 04:45 Creatinine 0.7 mg/dL (0.6-1.2) 09/30/22 04:45 Estimated GFR (MDRD) 109 (>89) 09/30/22 04:45 Glucose 106 mg/dL (70-100) H 09/30/22 04:45 POC Whole Bld Glucose 205 mg/dL (70 - 100) H 09/22/22 08:50 Calcium 9.0 mg/dL (8.5-10.3) 09/30/22 04:45 Phosphorus 3.1 mg/dL (2.5-4.6) 09/27/22 04:20 Magnesium 1.8 mg/dL (1.7-2.8) 09/28/22 04:29 Total Bilirubin 1.2 mg/dL (0.2-1.0) H 09/27/22 08:40 Direct Bilirubin 0.2 mg/dL (0.1-0.5) 09/23/22 04:20 AST 22 IU/L (10-42) 09/27/22 08:40 ALT 24 IU/L (10-60) 09/27/22 08:40 Alkaline Phosphatase 54 IU/L (42-121) 09/27/22 08:40 Ammonia 16.5 umol/L (7-35) 09/27/22 08:40 Total Creatine Kinase 190 IU/L (22-269) 09/26/22 04:25 Total Protein 6.9 g/dL (6.7-8.2) 09/27/22 08:40 Albumin 3.4 g/dL (3.2-5.5) 09/27/22 08:40 Globulin 3.5 g/dL (2.1-4.2) 09/27/22 08:40 Albumin/Globulin Ratio 1.0 (1.0-2.2) 09/27/22 08:40 Lipase 37 U/L (22-51) 09/22/22 08:46 Vitamin B12 109 pg/mL (180-914) L 09/23/22 15:47 Folate 4.35 ng/mL (5.90 - >24.8) L 09/23/22 15:47 TSH 1.47 uIU/mL (0.34-5.60) 09/22/22 08:46 Urine Color YELLOW 09/22/22 09:30 Urine Clarity CLEAR (CLEAR) 09/22/22 09:30 Urine pH 5.5 PH (5.0-7.5) 09/22/22 09:30 Ur Specific [place] 1.020 (1.002-1.030) 09/22/22 09:30 Urine Protein NEGATIVE mg/dL (NEGATIVE) 09/22/22 09:30 Urine Glucose (UA) NEGATIVE mg/dL (NEGATIVE) 09/22/22 09:30 Urine Ketones TRACE mg/dL (NEGATIVE) 09/22/22 09:30 Urine Occult Blood SMALL (NEGATIVE) H 09/22/22 09:30 Urine Nitrite NEGATIVE (NEGATIVE) 09/22/22 09:30 Urine Bilirubin NEGATIVE (NEGATIVE) 09/22/22 09:30 Urine Urobilinogen 0.2 (NORMAL) E.U./dL (NORMAL) 09/22/22 09:30 Ur Leukocyte Esterase NEGATIVE (NEGATIVE) 09/22/22 09:30 Urine RBC 0-5 /HPF (0-5) 09/22/22 09:30 Urine WBC 0-3 /HPF (0-3) 09/22/22 09:30 Ur Squamous Epith Cells NONE SEEN (<= Few) 09/22/22 09:30 Urine Bacteria None Seen /HPF (None Seen) 09/22/22 09:30 Urine Casts 3-5 Hyaline Casts /LPF 09/22/22 09:30 Ur Microscopic Review INDICATED 09/22/22 09:30 Urine Culture Comments NOT INDICATED 09/22/22 09:30 Nasal Adenovirus (PCR) NOT DETECTED 09/22/22 10:48 Nasal B. parapertussis DNA (PCR) NOT DETECTED 09/22/22 10:48 Nasal Coronavir 229E PCR NOT DETECTED 09/22/22 10:48 Nasal Coronavir HKU1 PCR NOT DETECTED 09/22/22 10:48 Nasal Coronavir NL63 PCR NOT DETECTED 09/22/22 10:48 Nasal Coronavir OC43 PCR NOT DETECTED 09/22/22 10:48 Nasal Enterovir/Rhinovir PCR NOT DETECTED 09/22/22 10:48 Nasal Influenza B PCR NOT DETECTED 09/22/22 10:48 Nasal Influenza A PCR NOT DETECTED 09/22/22 10:48 Nasal Parainfluen 1 PCR NOT DETECTED 09/22/22 10:48 Nasal Parainfluen 2 PCR NOT DETECTED 09/22/22 10:48 Nasal Parainfluen 3 PCR NOT DETECTED 09/22/22 10:48 Nasal Parainfluen 4 PCR NOT DETECTED 09/22/22 10:48 Nasal RSV (PCR) NOT DETECTED 09/22/22 10:48 Nasal Screen MRSA (PCR) NEGATIVE (NEGATIVE) 09/22/22 12:00 Nasal B.pertussis DNA PCR NOT DETECTED 09/22/22 10:48 Nasal C.pneumoniae (PCR) NOT DETECTED 09/22/22 10:48 Rafa Human Metapneumo PCR NOT DETECTED 09/22/22 10:48 Nasal M.pneumoniae (PCR) NOT DETECTED 09/22/22 10:48 Nasal SARS-CoV-2 (PCR) NOT DETECTED 09/22/22 10:48 Salicylates < 6.0 mg/dL 09/22/22 08:46 Urine Opiates Screen NEGATIVE (NEGATIVE) 09/22/22 09:30 Ur Oxycodone Screen NEGATIVE (NEGATIVE) 09/22/22 09:30 Urine Methadone Screen NEGATIVE (NEGATIVE) 09/22/22 09:30 Ur Propoxyphene Screen NEGATIVE (NEGATIVE) 09/22/22 09:30 Acetaminophen < 10 ug/mL (10-30) L 09/22/22 08:46 Ur Barbiturates Screen NEGATIVE (NEGATIVE) 09/22/22 09:30 Ur Tricyclics Screen NEGATIVE (NEGATIVE) 09/22/22 09:30 Ur Phencyclidine Scrn NEGATIVE (NEGATIVE) 09/22/22 09:30 Ur Amphetamine Screen NEGATIVE (NEGATIVE) 09/22/22 09:30 U Methamphetamines Scrn NEGATIVE (NEGATIVE) 09/22/22 09:30 U Benzodiazepines Scrn NEGATIVE (NEGATIVE) 09/22/22 09:30 Urine Cocaine Screen NEGATIVE (NEGATIVE) 09/22/22 09:30 U Cannabinoids Screen NEGATIVE (NEGATIVE) 09/22/22 09:30 Ethyl Alcohol 55.8 mg/dL 09/22/22 08:46 Serum Ketones NEGATIVE (NEGATIVE) 09/22/22 08:46 ABX Reporting Has patient been on IV antibiotics over the past 48 hours?: No Current Medications - Current Medications Current Medications: Active Medications Generic Name Dose Route Start Last Admin Trade Name Freq PRN Reason Stop Dose Admin Acetaminophen 650 mg 09/22/22 11:23 10/02/22 04:25 Acetaminophen 325 Mg Tablet PO 650 mg Q4HR PRN Administration Pain 1 to 4, or Fever Bacitracin 1 packet 09/22/22 14:19 09/22/22 16:11 Bacitracin Zinc Oint 1 Packet TOP 1 packet PRN PRN Administration Skin Care Clonidine HCl 1 patch 09/25/22 10:00 10/03/22 10:50 Clonidine 0.1 Mg Patch TOP 1 patch Q7D LAZ Administration Cyanocobalamin 500 mcg 09/25/22 09:00 10/03/22 08:42 Cyanocobalamin 500 Mcg Tablet PO 500 mcg DAILY LAZ Administration Famotidine 20 mg 09/30/22 21:00 10/03/22 08:42 Famotidine 20 Mg Tablet PO 20 mg BID LAZ Administration Hydralazine HCl 10 mg 09/24/22 21:35 09/24/22 22:05 Hydralazine Inj 20 Mg/Ml Vial IVP 10 mg Q8H PRN Administration sys bp more than 170 Lorazepam 0.5 mg 09/29/22 18:13 10/03/22 13:01 Lorazepam 2 Mg/Ml Vial IVP 0.5 mg Q1H PRN Administration Agitation Mineral Oil 1 applic 09/26/22 20:39 09/27/22 04:01 Min Oil/Dimethicon/Coconut Oil 92 Gm Tube TOP 1 applic PRN PRN Administration Skin Care Multi-Ingredient Lotion 3 ml 09/27/22 08:59 09/27/22 14:53 Parab/Cet Alc/Stryl Alc/Pg/Sls 473 Ml Bottle TOP 1 applic TID PRN Administration Acne Ondansetron HCl 4 mg 09/22/22 11:23 Ondansetron 4 Mg/2 Ml Vial IVP Q6HR PRN Nausea / Vomiting Multivit/Folic Acid/Iron 1 tab 09/25/22 08:00 10/03/22 08:42 Vitamin Tablet PO 1 tab DAILYWM LAZ Administration Quetiapine Fumarate 25 mg 09/30/22 13:00 10/03/22 08:42 Quetiapine 25 Mg Tablet PO 25 mg BID LAZ Administration Sodium Chloride 10 ml 09/22/22 17:00 10/03/22 08:49 Sodium Chloride Flush 0.9% 10 Ml Syringe IVP 10 ml 0100,0900,1700 LAZ Administration Sodium Chloride 10 ml 09/22/22 11:23 09/29/22 20:34 Sodium Chloride Flush 0.9% 10 Ml Syringe IVP 20 ml PRN PRN Administration NEEDED PER PROVIDER ORDERS Thiamine HCl 100 mg 09/28/22 09:00 10/03/22 08:42 Thiamine 100 Mg Tablet PO 100 mg DAILY LAZ Administration No Known Home Medications 09/30/22
[2022-10-04] MEDS: SODIUM CHLORIDE FLUSH 0.9% 10 ML SYRINGE IVP SCH ×3 (01:48→20:35)
[2022-10-04] MEDS: LORazepam 2 MG/ML VIAL IVP PRN (05:50)
[2022-10-04] MEDS: SODIUM CHLORIDE FLUSH 0.9% 10 ML SYRINGE IVP PRN (05:51)
[2022-10-04] MEDS: QUEtiapine 25 MG TABLET PO SCH ×2 (09:01→20:35)
[2022-10-04] MEDS: PRENATAL VITAMIN TABLET PO SCH (09:01)
[2022-10-04] MEDS: THIAMINE 100 MG TABLET PO SCH (09:01)
[2022-10-04] MEDS: CYANOCOBALAMIN 500 MCG TABLET PO SCH (09:01)
[2022-10-04] MEDS: FAMOTIDINE 20 MG TABLET PO SCH ×2 (09:01→20:35)
--- NOTE | 2022-10-04 13:07 | PROVIDER PROGRESS NOTE ---
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 Has received adequate thiamine replacement We will continue thiamine 100 mg daily Provide supportive care, 09/30 started Seroquel 25 mg twice daily Behavior seems improved Cont current meds (2) Alcohol withdrawal delirium Assessment/Plan: Resolved - Current Meds Current Meds: Current Medications Generic Name Dose Route Start Last Admin Trade Name Freq PRN Reason Stop Dose Admin Acetaminophen 650 mg 09/22/22 11:23 10/02/22 04:25 Acetaminophen 325 Mg Tablet PO 650 mg Q4HR PRN Administration Pain 1 to 4, or Fever Bacitracin 1 packet 09/22/22 14:19 09/22/22 16:11 Bacitracin Zinc Oint 1 Packet TOP 1 packet PRN PRN Administration Skin Care Clonidine HCl 1 patch 09/25/22 10:00 10/03/22 10:50 Clonidine 0.1 Mg Patch TOP 1 patch Q7D LAZ Administration Cyanocobalamin 500 mcg 09/25/22 09:00 10/04/22 09:01 Cyanocobalamin 500 Mcg Tablet PO 500 mcg DAILY LAZ Administration Famotidine 20 mg 09/30/22 21:00 10/04/22 09:01 Famotidine 20 Mg Tablet PO 20 mg BID LAZ Administration Hydralazine HCl 10 mg 09/24/22 21:35 09/24/22 22:05 Hydralazine Inj 20 Mg/Ml Vial IVP 10 mg Q8H PRN Administration sys bp more than 170 Lorazepam 0.5 mg 09/29/22 18:13 10/04/22 05:50 Lorazepam 2 Mg/Ml Vial IVP 0.5 mg Q1H PRN Administration Agitation Mineral Oil 1 applic 09/26/22 20:39 09/27/22 04:01 Min Oil/Dimethicon/Coconut Oil 92 Gm Tube TOP 1 applic PRN PRN Administration Skin Care Multi-Ingredient Lotion 3 ml 09/27/22 08:59 09/27/22 14:53 Parab/Cet Alc/Stryl Alc/Pg/Sls 473 Ml Bottle TOP 1 applic TID PRN Administration Acne Multivit/Folic Acid/Iron 1 tab 04/08/23 08:00 10/04/22 09:01 Vitamin Tablet PO 1 tab DAILYWM LAZ Administration Quetiapine Fumarate 25 mg 09/30/22 13:00 10/04/22 09:01 Quetiapine 25 Mg Tablet PO 25 mg BID LAZ Administration Sodium Chloride 10 ml 09/22/22 17:00 10/04/22 09:01 Sodium Chloride Flush 0.9% 10 Ml Syringe IVP 10 ml 0100,0900,1700 LAZ Administration Sodium Chloride 10 ml 09/22/22 11:23 10/04/22 05:51 Sodium Chloride Flush 0.9% 10 Ml Syringe IVP 10 ml PRN PRN Administration NEEDED PER PROVIDER ORDERS Thiamine HCl 100 mg 09/28/22 09:00 10/04/22 09:01 Thiamine 100 Mg Tablet PO 100 mg DAILY LAZ Administration - Lab Result Lab results reviewed: Yes Fish Bone Diagrams: 10/01/22 05:25 09/30/22 04:45 - Additional Planning My Orders: My Active Orders 10/04/22 COVID-19 [facility] Routine 10/04/22 Lunch Soft Mechanical Diet [DIET] Subjective - Subjective Patient Reports: Feeling Better Objective Vital Signs: Vital Signs - 24 hr 10/03/22 10/03/22 10/04/22 15:30 23:31 07:59 Temperature 36.8 C 36.4 C L 36.6 C Heart Rate [ 73 73 80 Brachial] Respiratory 16 16 18 Rate Blood Pressure 126/74 110/72 129/59 L [Right Brachial artery] O2 Saturation 100 98 97 Oxygen O2 Source Room air I&O (Last 24 Hrs): Intake and Output Totals x24h 10/02/22 10/03/22 10/04/22 23:59 23:59 23:59 Intake Total 1460 2018 240 Output Total 450 400 200 Balance 1010 1618 40 General: Alert HEENT: Atraumatic Neck: Supple Neuro: Alert, Other (AAO x2) Cardiovascular: Regular rate, Normal S1, Normal S2 Respiratory: Chest non-tender, No respiratory distress, Breath sounds nml Abdomen: Normal bowel sounds Extremities: No edema Skin: No rashes - Results Results: Laboratory Results WBC 6.5 x10^3/uL (4.8-10.8) 10/01/22 05:25 RBC 4.93 10^6/uL (4.70-6.10) 10/01/22 05:25 Hgb 15.7 g/dL (14.0-18.0) 10/01/22 05:25 Hct 47.8 % (42.0-52.0) 10/01/22 05:25 MCV 97.0 fL (80.0-94.0) H 10/01/22 05:25 MCH 31.8 pg (27.0-31.0) H 10/01/22 05:25 MCHC 32.8 g/dL (32.0-36.0) 10/01/22 05:25 RDW 14.0 % (12.0-15.0) 10/01/22 05:25 Plt Count 218 10^3/uL (130-450) 10/01/22 05:25 MPV 10.0 fL (7.4-11.4) 10/01/22 05:25 Neut # (Auto) 4.2 10^3/uL (1.5-6.6) 10/01/22 05:25 Lymph # (Auto) 1.0 10^3/uL (1.5-3.5) L 10/01/22 05:25 [place] # (Auto) 1.0 10^3/uL (0.0-1.0) 10/01/22 05:25 Eos # (Auto) 0.3 10^3/uL (0.0-0.7) 10/01/22 05:25 Baso # (Auto) 0.1 10^3/uL (0.0-0.1) 10/01/22 05:25 Absolute Nucleated RBC 0.00 x10^3/uL 10/01/22 05:25 Nucleated RBC % 0.0 /100WBC 10/01/22 05:25 PT 11.3 secs (9.9-12.6) 09/22/22 08:46 INR 1.0 (0.8-1.2) 09/22/22 08:46 VBG pH 7.449 (7.31-7.41) H 09/27/22 04:20 Ionized Calcium 1.18 mmol/L (1.15-1.33) 09/27/22 04:20 Sodium 138 mmol/L (135-145) 09/30/22 04:45 Potassium 3.6 mmol/L (3.5-5.0) 09/30/22 04:45 Chloride 109 mmol/L (101-111) 09/30/22 04:45 Carbon Dioxide 24 mmol/L (21-32) 09/30/22 04:45 Anion Gap 5.0 (6-13) L 09/30/22 04:45 BUN 16 mg/dL (6-20) 09/30/22 04:45 Creatinine 0.7 mg/dL (0.6-1.2) 09/30/22 04:45 Estimated GFR (MDRD) 109 (>89) 09/30/22 04:45 Glucose 106 mg/dL (70-100) H 09/30/22 04:45 POC Whole Bld Glucose 205 mg/dL (70 - 100) H 09/22/22 08:50 Calcium 9.0 mg/dL (8.5-10.3) 09/30/22 04:45 Phosphorus 3.1 mg/dL (2.5-4.6) 09/27/22 04:20 Magnesium 1.8 mg/dL (1.7-2.8) 09/28/22 04:29 Total Bilirubin 1.2 mg/dL (0.2-1.0) H 09/27/22 08:40 Direct Bilirubin 0.2 mg/dL (0.1-0.5) 09/23/22 04:20 AST 22 IU/L (10-42) 09/27/22 08:40 ALT 24 IU/L (10-60) 09/27/22 08:40 Alkaline Phosphatase 54 IU/L (42-121) 09/27/22 08:40 Ammonia 16.5 umol/L (7-35) 09/27/22 08:40 Total Creatine Kinase 190 IU/L (22-269) 09/26/22 04:25 Total Protein 6.9 g/dL (6.7-8.2) 09/27/22 08:40 Albumin 3.4 g/dL (3.2-5.5) 09/27/22 08:40 Globulin 3.5 g/dL (2.1-4.2) 09/27/22 08:40 Albumin/Globulin Ratio 1.0 (1.0-2.2) 09/27/22 08:40 Lipase 37 U/L (22-51) 09/22/22 08:46 Vitamin B12 109 pg/mL (180-914) L 09/23/22 15:47 Folate 4.35 ng/mL (5.90 - >24.8) L 09/23/22 15:47 TSH 1.47 uIU/mL (0.34-5.60) 09/22/22 08:46 Urine Color YELLOW 09/22/22 09:30 Urine Clarity CLEAR (CLEAR) 09/22/22 09:30 Urine pH 5.5 PH (5.0-7.5) 09/22/22 09:30 Ur Specific [place] 1.020 (1.002-1.030) 09/22/22 09:30 Urine Protein NEGATIVE mg/dL (NEGATIVE) 09/22/22 09:30 Urine Glucose (UA) NEGATIVE mg/dL (NEGATIVE) 09/22/22 09:30 Urine Ketones TRACE mg/dL (NEGATIVE) 09/22/22 09:30 Urine Occult Blood SMALL (NEGATIVE) H 09/22/22 09:30 Urine Nitrite NEGATIVE (NEGATIVE) 09/22/22 09:30 Urine Bilirubin NEGATIVE (NEGATIVE) 09/22/22 09:30 Urine Urobilinogen 0.2 (NORMAL) E.U./dL (NORMAL) 09/22/22 09:30 Ur Leukocyte Esterase NEGATIVE (NEGATIVE) 09/22/22 09:30 Urine RBC 0-5 /HPF (0-5) 09/22/22 09:30 Urine WBC 0-3 /HPF (0-3) 09/22/22 09:30 Ur Squamous Epith Cells NONE SEEN (<= Few) 09/22/22 09:30 Urine Bacteria None Seen /HPF (None Seen) 09/22/22 09:30 Urine Casts 3-5 Hyaline Casts /LPF 09/22/22 09:30 Ur Microscopic Review INDICATED 09/22/22 09:30 Urine Culture Comments NOT INDICATED 09/22/22 09:30 Nasal Adenovirus (PCR) NOT DETECTED 09/22/22 10:48 Nasal B. parapertussis DNA (PCR) NOT DETECTED 09/22/22 10:48 Nasal Coronavir 229E PCR NOT DETECTED 09/22/22 10:48 Nasal Coronavir HKU1 PCR NOT DETECTED 09/22/22 10:48 Nasal Coronavir NL63 PCR NOT DETECTED 09/22/22 10:48 Nasal Coronavir OC43 PCR NOT DETECTED 09/22/22 10:48 Nasal Enterovir/Rhinovir PCR NOT DETECTED 09/22/22 10:48 Nasal Influenza B PCR NOT DETECTED 09/22/22 10:48 Nasal Influenza A PCR NOT DETECTED 09/22/22 10:48 Nasal Parainfluen 1 PCR NOT DETECTED 09/22/22 10:48 Nasal Parainfluen 2 PCR NOT DETECTED 09/22/22 10:48 Nasal Parainfluen 3 PCR NOT DETECTED 09/22/22 10:48 Nasal Parainfluen 4 PCR NOT DETECTED 09/22/22 10:48 Nasal RSV (PCR) NOT DETECTED 09/22/22 10:48 Nasal Screen MRSA (PCR) NEGATIVE (NEGATIVE) 09/22/22 12:00 Nasal B.pertussis DNA PCR NOT DETECTED 09/22/22 10:48 Nasal C.pneumoniae (PCR) NOT DETECTED 09/22/22 10:48 Rafa Human Metapneumo PCR NOT DETECTED 09/22/22 10:48 Nasal M.pneumoniae (PCR) NOT DETECTED 09/22/22 10:48 Nasal SARS-CoV-2 (PCR) NOT DETECTED 09/22/22 10:48 Salicylates < 6.0 mg/dL 09/22/22 08:46 Urine Opiates Screen NEGATIVE (NEGATIVE) 09/22/22 09:30 Ur Oxycodone Screen NEGATIVE (NEGATIVE) 09/22/22 09:30 Urine Methadone Screen NEGATIVE (NEGATIVE) 09/22/22 09:30 Ur Propoxyphene Screen NEGATIVE (NEGATIVE) 09/22/22 09:30 Acetaminophen < 10 ug/mL (10-30) L 09/22/22 08:46 Ur Barbiturates Screen NEGATIVE (NEGATIVE) 09/22/22 09:30 Ur Tricyclics Screen NEGATIVE (NEGATIVE) 09/22/22 09:30 Ur Phencyclidine Scrn NEGATIVE (NEGATIVE) 09/22/22 09:30 Ur Amphetamine Screen NEGATIVE (NEGATIVE) 09/22/22 09:30 U Methamphetamines Scrn NEGATIVE (NEGATIVE) 09/22/22 09:30 U Benzodiazepines Scrn NEGATIVE (NEGATIVE) 09/22/22 09:30 Urine Cocaine Screen NEGATIVE (NEGATIVE) 09/22/22 09:30 U Cannabinoids Screen NEGATIVE (NEGATIVE) 09/22/22 09:30 Ethyl Alcohol 55.8 mg/dL 09/22/22 08:46 Serum Ketones NEGATIVE (NEGATIVE) 09/22/22 08:46 ABX Reporting Has patient been on IV antibiotics over the past 48 hours?: No
[2022-10-05] MEDS: SODIUM CHLORIDE FLUSH 0.9% 10 ML SYRINGE IVP SCH ×3 (06:50→16:38)
[2022-10-05] MEDS: THIAMINE 100 MG TABLET PO SCH (08:41)
[2022-10-05] MEDS: FAMOTIDINE 20 MG TABLET PO SCH ×2 (08:41→20:27)
[2022-10-05] MEDS: PRENATAL VITAMIN TABLET PO SCH (08:41)
[2022-10-05] MEDS: CYANOCOBALAMIN 500 MCG TABLET PO SCH (08:41)
[2022-10-05] MEDS: QUEtiapine 25 MG TABLET PO SCH ×2 (08:41→16:38)
--- NOTE | 2022-10-05 12:20 | PROVIDER PROGRESS NOTE ---
Assessment/Plan - Problem List (1) Wernicke-Korsakoff psychosis Assessment/Plan: Alcohol withdrawal resolved days ago. He remains confused: He cannot remember where he is, cannot remember to use his walker when he wants to ambulate. 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 On 09/30, we started him on Seroquel 25 mg twice daily, due to the Sundowning. Plan: We will continue thiamine 100 mg daily We will change the twice daily dosing of Seroquel to 0800, and 1700, to try to prevent his Sundowning around dinnertime and at night We will check his ammonia level intermittently, use lactulose if it is indicated He still has as needed lorazepam iv to give if he has agitation when he is Sundowning Provide supportive care Social work and our technology architect have been in contact with his 2 daughters, 1 is a financial DPOA. The daughters do agree that he will need permanent placement, possibly in a memory care center fo long-term care. (2) Alcohol abuse Assessment/Plan: His withdrawal resolved Plan: Continue him on oral thiamine, vitamin and nutritional support Continue with PT and OT (3) Hx HTN He was hypertensive when in the ICU, when he was going through withdrawal and a clonidine patch topically was ordered His blood pressure is now running "soft" in the 105 range Plan: We will discontinue the clonidine patch - Current Meds Current Meds: Current Medications Generic Name Dose Route Start Last Admin Trade Name Aurelio PRN Reason Stop Dose Admin Acetaminophen 650 mg 09/22/22 11:23 10/02/22 04:25 Acetaminophen 325 Mg Tablet PO 650 mg Q4HR PRN Administration Pain 1 to 4, or Fever Bacitracin 1 packet 09/22/22 14:19 09/22/22 16:11 Bacitracin Zinc Oint 1 Packet TOP 1 packet PRN PRN Administration Skin Care Clonidine HCl 1 patch 09/25/22 10:00 10/03/22 10:50 Clonidine 0.1 Mg Patch TOP 1 patch Q7D LAZ Administration Cyanocobalamin 500 mcg 09/25/22 09:00 10/05/22 08:41 Cyanocobalamin 500 Mcg Tablet PO 500 mcg DAILY LAZ Administration Famotidine 20 mg 09/30/22 21:00 10/05/22 08:41 Famotidine 20 Mg Tablet PO 20 mg BID LAZ Administration Hydralazine HCl 10 mg 09/24/22 21:35 09/24/22 22:05 Hydralazine Inj 20 Mg/Ml Vial IVP 10 mg Q8H PRN Administration sys bp more than 170 Lorazepam 0.5 mg 09/29/22 18:13 10/04/22 05:50 Lorazepam 2 Mg/Ml Vial IVP 0.5 mg Q1H PRN Administration Agitation Mineral Oil 1 applic 09/26/22 20:39 09/27/22 04:01 Min Oil/Dimethicon/Coconut Oil 92 Gm Tube TOP 1 applic PRN PRN Administration Skin Care Multi-Ingredient Lotion 3 ml 09/27/22 08:59 09/27/22 14:53 Parab/Cet Alc/Stryl Alc/Pg/Sls 473 Ml Bottle TOP 1 applic TID PRN Administration Acne Multivit/Folic Acid/Iron 1 tab 09/25/22 08:00 10/05/22 08:41 Vitamin Tablet PO 1 tab DAILYWM LAZ Administration Sodium Chloride 10 ml 09/22/22 17:00 10/05/22 08:41 Sodium Chloride Flush 0.9% 10 Ml Syringe IVP 10 ml 0100,0900,1700 LAZ Administration Sodium Chloride 10 ml 09/22/22 11:23 10/04/22 05:51 Sodium Chloride Flush 0.9% 10 Ml Syringe IVP 10 ml PRN PRN Administration NEEDED PER PROVIDER ORDERS Thiamine HCl 100 mg 09/28/22 09:00 10/05/22 08:41 Thiamine 100 Mg Tablet PO 100 mg DAILY LAZ Administration - Lab Result Fish Bone Diagrams: 10/01/22 05:25 09/30/22 04:45 - Additional Planning My Orders: My Active Orders 10/05/22 Evaluate and Treat OT [OT] Routine 10/05/22 17:00 QUEtiapine [SEROquel] 25 mg PO 0900,1700 Subjective - Subjective Patient Reports: Resting Comfortably, No Complaints Nursing Reports: Other (RN reports that he is pleasant and cooperative, needs constant cueing and reminding) Objective Vital Signs: Vital Signs - 24 hr 10/04/22 10/04/22 10/05/22 15:35 23:30 07:59 Temperature 36.9 C 36.5 C 36.2 C L Heart Rate [ 63 63 59 L Brachial] Respiratory 16 18 16 Rate Blood Pressure 101/69 [Left Brachial artery] Blood Pressure 110/61 105/56 L [Right Brachial artery] O2 Saturation 99 92 98 Oxygen O2 Source Room air I&O (Last 24 Hrs): Intake and Output Totals x24h 10/03/22 10/04/22 10/05/22 23:59 23:59 23:59 Intake Total 20170 480 Output Total 400 1200 Balance 1618 -20 480 General: Alert, No acute distress HEENT: Mucous membr. moist/pink, Other (Face is flushed and has acne papules) Neck: Supple Neuro: Alert, Disoriented, Other (No resting tremor) Cardiovascular: Regular rate Respiratory: No respiratory distress Abdomen: Soft Extremities: No clubbing, No edema, No tenderness/swelling - Results Results: Laboratory Results WBC 6.5 x10^3/uL (4.8-10.8) 10/01/22 05:25 RBC 4.93 10^6/uL (4.70-6.10) 10/01/22 05:25 Hgb 15.7 g/dL (14.0-18.0) 10/01/22 05:25 Hct 47.8 % (42.0-52.0) 10/01/22 05:25 MCV 97.0 fL (80.0-94.0) H 10/01/22 05:25 MCH 31.8 pg (27.0-31.0) H 10/01/22 05:25 MCHC 32.8 g/dL (32.0-36.0) 10/01/22 05:25 RDW 14.0 % (12.0-15.0) 10/01/22 05:25 Plt Count 218 10^3/uL (130-450) 10/01/22 05:25 MPV 10.0 fL (7.4-11.4) 10/01/22 05:25 Neut # (Auto) 4.2 10^3/uL (1.5-6.6) 10/01/22 05:25 Lymph # (Auto) 1.0 10^3/uL (1.5-3.5) L 10/01/22 05:25 [place] # (Auto) 1.0 10^3/uL (0.0-1.0) 10/01/22 05:25 Eos # (Auto) 0.3 10^3/uL (0.0-0.7) 10/01/22 05:25 Baso # (Auto) 0.1 10^3/uL (0.0-0.1) 10/01/22 05:25 Absolute Nucleated RBC 0.00 x10^3/uL 10/01/22 05:25 Nucleated RBC % 0.0 /100WBC 10/01/22 05:25 PT 11.3 secs (9.9-12.6) 09/22/22 08:46 INR 1.0 (0.8-1.2) 09/22/22 08:46 VBG pH 7.449 (7.31-7.41) H 09/27/22 04:20 Ionized Calcium 1.18 mmol/L (1.15-1.33) 09/27/22 04:20 Sodium 138 mmol/L (135-145) 09/30/22 04:45 Potassium 3.6 mmol/L (3.5-5.0) 09/30/22 04:45 Chloride 109 mmol/L (101-111) 09/30/22 04:45 Carbon Dioxide 24 mmol/L (21-32) 09/30/22 04:45 Anion Gap 5.0 (6-13) L 09/30/22 04:45 BUN 16 mg/dL (6-20) 09/30/22 04:45 Creatinine 0.7 mg/dL (0.6-1.2) 09/30/22 04:45 Estimated GFR (MDRD) 109 (>89) 09/30/22 04:45 Glucose 106 mg/dL (70-100) H 09/30/22 04:45 POC Whole Bld Glucose 205 mg/dL (70 - 100) H 09/22/22 08:50 Calcium 9.0 mg/dL (8.5-10.3) 09/30/22 04:45 Phosphorus 3.1 mg/dL (2.5-4.6) 09/27/22 04:20 Magnesium 1.8 mg/dL (1.7-2.8) 09/28/22 04:29 Total Bilirubin 1.2 mg/dL (0.2-1.0) H 09/27/22 08:40 Direct Bilirubin 0.2 mg/dL (0.1-0.5) 09/23/22 04:20 AST 22 IU/L (10-42) 09/27/22 08:40 ALT 24 IU/L (10-60) 09/27/22 08:40 Alkaline Phosphatase 54 IU/L (42-121) 09/27/22 08:40 Ammonia 16.5 umol/L (7-35) 09/27/22 08:40 Total Creatine Kinase 190 IU/L (22-269) 09/26/22 04:25 Total Protein 6.9 g/dL (6.7-8.2) 09/27/22 08:40 Albumin 3.4 g/dL (3.2-5.5) 09/27/22 08:40 Globulin 3.5 g/dL (2.1-4.2) 09/27/22 08:40 Albumin/Globulin Ratio 1.0 (1.0-2.2) 09/27/22 08:40 Lipase 37 U/L (22-51) 09/22/22 08:46 Vitamin B12 109 pg/mL (180-914) L 09/23/22 15:47 Folate 4.35 ng/mL (5.90 - >24.8) L 09/23/22 15:47 TSH 1.47 uIU/mL (0.34-5.60) 09/22/22 08:46 Urine Color YELLOW 09/22/22 09:30 Urine Clarity CLEAR (CLEAR) 09/22/22 09:30 Urine pH 5.5 PH (5.0-7.5) 09/22/22 09:30 Ur Specific [place] 1.020 (1.002-1.030) 09/22/22 09:30 Urine Protein NEGATIVE mg/dL (NEGATIVE) 09/22/22 09:30 Urine Glucose (UA) NEGATIVE mg/dL (NEGATIVE) 09/22/22 09:30 Urine Ketones TRACE mg/dL (NEGATIVE) 09/22/22 09:30 Urine Occult Blood SMALL (NEGATIVE) H 09/22/22 09:30 Urine Nitrite NEGATIVE (NEGATIVE) 09/22/22 09:30 Urine Bilirubin NEGATIVE (NEGATIVE) 09/22/22 09:30 Urine Urobilinogen 0.2 (NORMAL) E.U./dL (NORMAL) 09/22/22 09:30 Ur Leukocyte Esterase NEGATIVE (NEGATIVE) 09/22/22 09:30 Urine RBC 0-5 /HPF (0-5) 09/22/22 09:30 Urine WBC 0-3 /HPF (0-3) 09/22/22 09:30 Ur Squamous Epith Cells NONE SEEN (<= Few) 09/22/22 09:30 Urine Bacteria None Seen /HPF (None Seen) 09/22/22 09:30 Urine Casts 3-5 Hyaline Casts /LPF 09/22/22 09:30 Ur Microscopic Review INDICATED 09/22/22 09:30 Urine Culture Comments NOT INDICATED 09/22/22 09:30 Nasal Adenovirus (PCR) NOT DETECTED 09/22/22 10:48 Nasal B. parapertussis DNA (PCR) NOT DETECTED 09/22/22 10:48 Nasal Coronavir 229E PCR NOT DETECTED 09/22/22 10:48 Nasal Coronavir HKU1 PCR NOT DETECTED 09/22/22 10:48 Nasal Coronavir NL63 PCR NOT DETECTED 09/22/22 10:48 Nasal Coronavir OC43 PCR NOT DETECTED 09/22/22 10:48 Nasal Enterovir/Rhinovir PCR NOT DETECTED 09/22/22 10:48 Nasal Influenza B PCR NOT DETECTED 09/22/22 10:48 Nasal Influenza A PCR NOT DETECTED 09/22/22 10:48 Nasal Parainfluen 1 PCR NOT DETECTED 09/22/22 10:48 Nasal Parainfluen 2 PCR NOT DETECTED 09/22/22 10:48 Nasal Parainfluen 3 PCR NOT DETECTED 09/22/22 10:48 Nasal Parainfluen 4 PCR NOT DETECTED 09/22/22 10:48 Nasal RSV (PCR) NOT DETECTED 09/22/22 10:48 Nasal Screen MRSA (PCR) NEGATIVE (NEGATIVE) 09/22/22 12:00 Nasal B.pertussis DNA PCR NOT DETECTED 09/22/22 10:48 Nasal C.pneumoniae (PCR) NOT DETECTED 09/22/22 10:48 Rafa Human Metapneumo PCR NOT DETECTED 09/22/22 10:48 Nasal M.pneumoniae (PCR) NOT DETECTED 09/22/22 10:48 Nasal SARS-CoV-2 (PCR) NOT DETECTED 09/22/22 10:48 Salicylates < 6.0 mg/dL 09/22/22 08:46 Urine Opiates Screen NEGATIVE (NEGATIVE) 09/22/22 09:30 Ur Oxycodone Screen NEGATIVE (NEGATIVE) 09/22/22 09:30 Urine Methadone Screen NEGATIVE (NEGATIVE) 09/22/22 09:30 Ur Propoxyphene Screen NEGATIVE (NEGATIVE) 09/22/22 09:30 Acetaminophen < 10 ug/mL (10-30) L 09/22/22 08:46 Ur Barbiturates Screen NEGATIVE (NEGATIVE) 09/22/22 09:30 Ur Tricyclics Screen NEGATIVE (NEGATIVE) 09/22/22 09:30 Ur Phencyclidine Scrn NEGATIVE (NEGATIVE) 09/22/22 09:30 Ur Amphetamine Screen NEGATIVE (NEGATIVE) 09/22/22 09:30 U Methamphetamines Scrn NEGATIVE (NEGATIVE) 09/22/22 09:30 U Benzodiazepines Scrn NEGATIVE (NEGATIVE) 09/22/22 09:30 Urine Cocaine Screen NEGATIVE (NEGATIVE) 09/22/22 09:30 U Cannabinoids Screen NEGATIVE (NEGATIVE) 09/22/22 09:30 Ethyl Alcohol 55.8 mg/dL 09/22/22 08:46 Serum Ketones NEGATIVE (NEGATIVE) 09/22/22 08:46
[2022-10-06] MEDS: SODIUM CHLORIDE FLUSH 0.9% 10 ML SYRINGE IVP SCH ×3 (06:22→16:59)
[2022-10-06] MEDS: PRENATAL VITAMIN TABLET PO SCH (08:44)
[2022-10-06] MEDS: CYANOCOBALAMIN 500 MCG TABLET PO SCH (08:44)
[2022-10-06] MEDS: FAMOTIDINE 20 MG TABLET PO SCH ×3 (08:44→21:26)
[2022-10-06] MEDS: QUEtiapine 25 MG TABLET PO SCH ×2 (08:45→16:59)
[2022-10-06] MEDS: THIAMINE 100 MG TABLET PO SCH (08:45)
--- NOTE | 2022-10-06 13:39 | PROVIDER PROGRESS NOTE ---
Assessment/Plan - Problem List (1) Wernicke-Korsakoff psychosis Assessment/Plan: Alcohol use was excessive and had been for decades. He remains confused: He cannot remember where he is, cannot remember to use his walker when he wants to ambulate. 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 Has received adequate thiamine replacement. On 09/30, we started him on Seroquel 25 mg twice daily, due to the Sundowning. He is able to ambulate 100 feet w/ his walker and therefore does not need a SNF for rehab after Dch from this hospital stay. He had a [facility] cognitive eval done today by OT and he scored 9/30, indicating severe cognitive impairment. Plan: We will continue thiamine 100 mg daily We will change the twice daily dosing of Seroquel to 0800, and 1700, to try to prevent his Sundowning around dinnertime and at night Will add scheduled Lorazepam at bedtime We will check his ammonia level intermittently, use lactulose if it is indicated He still has as needed lorazepam iv to give if he has agitation when he is Sundowning Provide supportive care Patient is unable to make his own decisions, based on the [facility] cognitive eval. Social work and our outside contractor sales have been in contact with his 2 daughters, 1 is a financial DPOA. The daughters do agree that he will need permanent placement, possibly in a memory care center fo long-term care. (2) Alcohol abuse Assessment/Plan: His withdrawal resolved Plan: Continue him on oral thiamine, vitamin and nutritional support (3) Hx HTN He was hypertensive when in the ICU, when he was going through withdrawal and a clonidine patch topically was ordered His blood pressure is now running "soft" in the 105 range Plan: We will discontinue the clonidine patch - Current Meds Current Meds: Current Medications Generic Name Dose Route Start Last Admin Trade Name Freq PRN Reason Stop Dose Admin Acetaminophen 650 mg 09/22/22 11:23 10/02/22 04:25 Acetaminophen 325 Mg Tablet PO 650 mg Q4HR PRN Administration Pain 1 to 4, or Fever Bacitracin 1 packet 09/22/22 14:19 09/22/22 16:11 Bacitracin Zinc Oint 1 Packet TOP 1 packet PRN PRN Administration Skin Care Cyanocobalamin 500 mcg 09/25/22 09:00 10/06/22 08:44 Cyanocobalamin 500 Mcg Tablet PO 500 mcg DAILY LAZ Administration Famotidine 20 mg 09/30/22 21:00 10/06/22 08:44 Famotidine 20 Mg Tablet PO 20 mg BID LAZ Administration Hydralazine HCl 10 mg 09/24/22 21:35 09/24/22 22:05 Hydralazine Inj 20 Mg/Ml Vial IVP 10 mg Q8H PRN Administration sys bp more than 170 Lorazepam 0.5 mg 09/29/22 18:13 10/04/22 05:50 Lorazepam 2 Mg/Ml Vial IVP 0.5 mg Q1H PRN Administration Agitation Mineral Oil 1 applic 09/26/22 20:39 09/27/22 04:01 Min Oil/Dimethicon/Coconut Oil 92 Gm Tube TOP 1 applic PRN PRN Administration Skin Care Multi-Ingredient Lotion 3 ml 09/27/22 08:59 09/27/22 14:53 Parab/Cet Alc/Stryl Alc/Pg/Sls 473 Ml Bottle TOP 1 applic TID PRN Administration Acne Multivit/Folic Acid/Iron 1 tab 09/25/22 08:00 10/06/22 08:44 Vitamin Tablet PO 1 tab DAILYWM LAZ Administration Quetiapine Fumarate 25 mg 10/05/22 17:00 10/06/22 08:45 Quetiapine 25 Mg Tablet PO 25 mg 0900,1700 LAZ Administration Sodium Chloride 10 ml 09/22/22 17:00 10/06/22 08:45 Sodium Chloride Flush 0.9% 10 Ml Syringe IVP 10 ml 0100,0900,1700 LAZ Administration Sodium Chloride 10 ml 09/22/22 11:23 10/04/22 05:51 Sodium Chloride Flush 0.9% 10 Ml Syringe IVP 10 ml PRN PRN Administration NEEDED PER PROVIDER ORDERS Thiamine HCl 100 mg 09/28/22 09:00 10/06/22 08:45 Thiamine 100 Mg Tablet PO 100 mg DAILY LAZ Administration - Lab Result Fish Bone Diagrams: 10/01/22 05:25 09/30/22 04:45 - Additional Planning My Orders: My Active Orders 10/05/22 17:00 QUEtiapine [SEROquel] 25 mg PO 0900,1700 10/06/22 21:00 LORazepam [Ativan] 0.5 mg PO QPM Subjective - Subjective Patient Reports: Resting Comfortably, No Complaints Nursing Reports: Other (He is more confused and frustrated/agitated between 1900 and 0000.) Objective Vital Signs: Vital Signs - 24 hr 10/05/22 10/05/22 10/05/22 15:46 20:00 23:44 Temperature 36.4 C L 36.2 C L 36.3 C L Heart Rate [ 94 64 Brachial] Heart Rate [ 62 Monitoring electrodes] Respiratory 20 18 16 Rate Blood Pressure 150/97 H 133/69 H [Left Brachial artery] Blood Pressure 115/71 [Right Brachial artery] O2 Saturation 96 98 100 10/06/22 08:38 Temperature 36.5 C Heart Rate [ 70 Brachial] Heart Rate [ Monitoring electrodes] Respiratory 18 Rate Blood Pressure [Left Brachial artery] Blood Pressure 119/71 [Right Brachial artery] O2 Saturation 100 Oxygen O2 Source Room air I&O (Last 24 Hrs): Intake and Output Totals x24h 10/04/22 10/05/22 10/06/22 23:59 23:59 23:59 Intake Total 1180 720 720 Output Total 1200 225 Balance -20 495 720 General: Alert, No acute distress HEENT: Atraumatic, EOMI Neck: Supple, No JVD Neuro: Alert, Disoriented, Non Focal Cardiovascular: Regular rate Respiratory: No respiratory distress Abdomen: Soft Extremities: No clubbing, No edema, No tenderness/swelling - Results Results: Laboratory Results WBC 6.5 x10^3/uL (4.8-10.8) 10/01/22 05:25 RBC 4.93 10^6/uL (4.70-6.10) 10/01/22 05:25 Hgb 15.7 g/dL (14.0-18.0) 10/01/22 05:25 Hct 47.8 % (42.0-52.0) 10/01/22 05:25 MCV 97.0 fL (80.0-94.0) H 10/01/22 05:25 MCH 31.8 pg (27.0-31.0) H 10/01/22 05:25 MCHC 32.8 g/dL (32.0-36.0) 10/01/22 05:25 RDW 14.0 % (12.0-15.0) 10/01/22 05:25 Plt Count 218 10^3/uL (130-450) 10/01/22 05:25 MPV 10.0 fL (7.4-11.4) 10/01/22 05:25 Neut # (Auto) 4.2 10^3/uL (1.5-6.6) 10/01/22 05:25 Lymph # (Auto) 1.0 10^3/uL (1.5-3.5) L 10/01/22 05:25 [place] # (Auto) 1.0 10^3/uL (0.0-1.0) 10/01/22 05:25 Eos # (Auto) 0.3 10^3/uL (0.0-0.7) 10/01/22 05:25 Baso # (Auto) 0.1 10^3/uL (0.0-0.1) 10/01/22 05:25 Absolute Nucleated RBC 0.00 x10^3/uL 10/01/22 05:25 Nucleated RBC % 0.0 /100WBC 10/01/22 05:25 PT 11.3 secs (9.9-12.6) 09/22/22 08:46 INR 1.0 (0.8-1.2) 09/22/22 08:46 VBG pH 7.449 (7.31-7.41) H 09/27/22 04:20 Ionized Calcium 1.18 mmol/L (1.15-1.33) 09/27/22 04:20 Sodium 138 mmol/L (135-145) 09/30/22 04:45 Potassium 3.6 mmol/L (3.5-5.0) 09/30/22 04:45 Chloride 109 mmol/L (101-111) 09/30/22 04:45 Carbon Dioxide 24 mmol/L (21-32) 09/30/22 04:45 Anion Gap 5.0 (6-13) L 09/30/22 04:45 BUN 16 mg/dL (6-20) 09/30/22 04:45 Creatinine 0.7 mg/dL (0.6-1.2) 09/30/22 04:45 Estimated GFR (MDRD) 109 (>89) 09/30/22 04:45 Glucose 106 mg/dL (70-100) H 09/30/22 04:45 POC Whole Bld Glucose 205 mg/dL (70 - 100) H 09/22/22 08:50 Calcium 9.0 mg/dL (8.5-10.3) 09/30/22 04:45 Phosphorus 3.1 mg/dL (2.5-4.6) 09/27/22 04:20 Magnesium 1.8 mg/dL (1.7-2.8) 09/28/22 04:29 Total Bilirubin 1.2 mg/dL (0.2-1.0) H 09/27/22 08:40 Direct Bilirubin 0.2 mg/dL (0.1-0.5) 09/23/22 04:20 AST 22 IU/L (10-42) 09/27/22 08:40 ALT 24 IU/L (10-60) 09/27/22 08:40 Alkaline Phosphatase 54 IU/L (42-121) 09/27/22 08:40 Ammonia 16.5 umol/L (7-35) 09/27/22 08:40 Total Creatine Kinase 190 IU/L (22-269) 09/26/22 04:25 Total Protein 6.9 g/dL (6.7-8.2) 09/27/22 08:40 Albumin 3.4 g/dL (3.2-5.5) 09/27/22 08:40 Globulin 3.5 g/dL (2.1-4.2) 09/27/22 08:40 Albumin/Globulin Ratio 1.0 (1.0-2.2) 09/27/22 08:40 Lipase 37 U/L (22-51) 09/22/22 08:46 Vitamin B12 109 pg/mL (180-914) L 09/23/22 15:47 Folate 4.35 ng/mL (5.90 - >24.8) L 09/23/22 15:47 TSH 1.47 uIU/mL (0.34-5.60) 09/22/22 08:46 Urine Color YELLOW 09/22/22 09:30 Urine Clarity CLEAR (CLEAR) 09/22/22 09:30 Urine pH 5.5 PH (5.0-7.5) 09/22/22 09:30 Ur Specific [place] 1.020 (1.002-1.030) 09/22/22 09:30 Urine Protein NEGATIVE mg/dL (NEGATIVE) 09/22/22 09:30 Urine Glucose (UA) NEGATIVE mg/dL (NEGATIVE) 09/22/22 09:30 Urine Ketones TRACE mg/dL (NEGATIVE) 09/22/22 09:30 Urine Occult Blood SMALL (NEGATIVE) H 09/22/22 09:30 Urine Nitrite NEGATIVE (NEGATIVE) 09/22/22 09:30 Urine Bilirubin NEGATIVE (NEGATIVE) 09/22/22 09:30 Urine Urobilinogen 0.2 (NORMAL) E.U./dL (NORMAL) 09/22/22 09:30 Ur Leukocyte Esterase NEGATIVE (NEGATIVE) 09/22/22 09:30 Urine RBC 0-5 /HPF (0-5) 09/22/22 09:30 Urine WBC 0-3 /HPF (0-3) 09/22/22 09:30 Ur Squamous Epith Cells NONE SEEN (<= Few) 09/22/22 09:30 Urine Bacteria None Seen /HPF (None Seen) 09/22/22 09:30 Urine Casts 3-5 Hyaline Casts /LPF 09/22/22 09:30 Ur Microscopic Review INDICATED 09/22/22 09:30 Urine Culture Comments NOT INDICATED 09/22/22 09:30 Nasal Adenovirus (PCR) NOT DETECTED 09/22/22 10:48 Nasal B. parapertussis DNA (PCR) NOT DETECTED 09/22/22 10:48 Nasal Coronavir 229E PCR NOT DETECTED 09/22/22 10:48 Nasal Coronavir HKU1 PCR NOT DETECTED 09/22/22 10:48 Nasal Coronavir NL63 PCR NOT DETECTED 09/22/22 10:48 Nasal Coronavir OC43 PCR NOT DETECTED 09/22/22 10:48 Nasal Enterovir/Rhinovir PCR NOT DETECTED 09/22/22 10:48 Nasal Influenza B PCR NOT DETECTED 09/22/22 10:48 Nasal Influenza A PCR NOT DETECTED 09/22/22 10:48 Nasal Parainfluen 1 PCR NOT DETECTED 09/22/22 10:48 Nasal Parainfluen 2 PCR NOT DETECTED 09/22/22 10:48 Nasal Parainfluen 3 PCR NOT DETECTED 09/22/22 10:48 Nasal Parainfluen 4 PCR NOT DETECTED 09/22/22 10:48 Nasal RSV (PCR) NOT DETECTED 09/22/22 10:48 Nasal Screen MRSA (PCR) NEGATIVE (NEGATIVE) 09/22/22 12:00 Nasal B.pertussis DNA PCR NOT DETECTED 09/22/22 10:48 Nasal C.pneumoniae (PCR) NOT DETECTED 09/22/22 10:48 Rafa Human Metapneumo PCR NOT DETECTED 09/22/22 10:48 Nasal M.pneumoniae (PCR) NOT DETECTED 09/22/22 10:48 Nasal SARS-CoV-2 (PCR) NOT DETECTED 09/22/22 10:48 Salicylates < 6.0 mg/dL 09/22/22 08:46 Urine Opiates Screen NEGATIVE (NEGATIVE) 09/22/22 09:30 Ur Oxycodone Screen NEGATIVE (NEGATIVE) 09/22/22 09:30 Urine Methadone Screen NEGATIVE (NEGATIVE) 09/22/22 09:30 Ur Propoxyphene Screen NEGATIVE (NEGATIVE) 09/22/22 09:30 Acetaminophen < 10 ug/mL (10-30) L 09/22/22 08:46 Ur Barbiturates Screen NEGATIVE (NEGATIVE) 09/22/22 09:30 Ur Tricyclics Screen NEGATIVE (NEGATIVE) 09/22/22 09:30 Ur Phencyclidine Scrn NEGATIVE (NEGATIVE) 09/22/22 09:30 Ur Amphetamine Screen NEGATIVE (NEGATIVE) 09/22/22 09:30 U Methamphetamines Scrn NEGATIVE (NEGATIVE) 09/22/22 09:30 U Benzodiazepines Scrn NEGATIVE (NEGATIVE) 09/22/22 09:30 Urine Cocaine Screen NEGATIVE (NEGATIVE) 09/22/22 09:30 U Cannabinoids Screen NEGATIVE (NEGATIVE) 09/22/22 09:30 Ethyl Alcohol 55.8 mg/dL 09/22/22 08:46 Serum Ketones NEGATIVE (NEGATIVE) 09/22/22 08:46
[2022-10-06] MEDS ORDERED: LORazepam 0.5 MG TABLET PO SCH (21:00)
[2022-10-07] MEDS: SODIUM CHLORIDE FLUSH 0.9% 10 ML SYRINGE IVP SCH ×2 (01:00→08:31)
[2022-10-07] MEDS: QUEtiapine 25 MG TABLET PO SCH ×2 (08:26→16:45)
[2022-10-07] MEDS: CYANOCOBALAMIN 500 MCG TABLET PO SCH (08:26)
[2022-10-07] MEDS: FAMOTIDINE 20 MG TABLET PO SCH ×2 (08:26→20:15)
[2022-10-07] MEDS: PRENATAL VITAMIN TABLET PO SCH (08:26)
[2022-10-07] MEDS: THIAMINE 100 MG TABLET PO SCH (08:27)
[2022-10-07] MEDS ORDERED: LORazepam 0.5 MG TABLET PO PRN (10:25)
--- NOTE | 2022-10-07 14:11 | PROVIDER PROGRESS NOTE ---
Assessment/Plan - Problem List (1) Wernicke-Korsakoff psychosis Assessment/Plan: Alcohol use was excessive and had been for decades. He remains confused: He cannot remember where he is, cannot remember to use his walker when he wants to ambulate. Today, he started a sentence and said he could not remember what he was telling me, and could not finish the sentence. 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 Has received adequate thiamine replacement. On 09/30, we started him on Seroquel 25 mg twice daily, due to the Sundowning. He is able to ambulate 100 feet w/ his walker and therefore does not need a SNF for rehab after Dch from this hospital stay. He had a SLUMS cognitive eval done 10/06/22, by OT and he scored 9/30, indicating severe cognitive impairment. Plan: We will continue thiamine 100 mg daily Continue the twice daily dosing of Seroquel at 0800 and 1700, to try to prevent his Sundowning that starts around dinnertime Will increase the new scheduled Lorazepam at bedtime, from 0.5 mg to 1 mg We will check his ammonia level intermittently, use Lactulose if it is indicated Provide supportive care and cuing He does not need a SNF for rehab after Dch from this hospital stay. Patient is unable to make his own decisions, based on the SLUMs cognitive evaluation. He should no longer live alone and without caregivers. Social work and our fire assistant have been in contact with his 2 daughters. The daughters do want him to be permanently placed in a NH, possibly in a memory care center for long-term care. (2) No able caregiver in household Assessment/Plan: Because of his severe cognitive impairment, he is unable to take care of himself at home, and prior to this he lived alone. Plan: He has met his goals regarding PT and OT rehab, is able to ambulate 100 feet, therefore is not a candidate to go to a SNF. He is unable to make his own decisions. Therefore the 2 daughters are working with our Fountain Brush Assembler to find him permanent placement in a memory care geriatric unit (3) Alcohol abuse Assessment/Plan: His withdrawal resolved Plan: Continue him on oral thiamine, vitamin and nutritional support (4) Hx HTN He was hypertensive when in the ICU, when he was going through withdrawal and a clonidine patch topically was ordered His blood pressure is now running "soft" in the 105 range I discontinued the clonidine patch - Current Meds Current Meds: Current Medications Generic Name Dose Route Start Last Admin Trade Name Freq PRN Reason Stop Dose Admin Acetaminophen 650 mg 09/22/22 11:23 10/02/22 04:25 Acetaminophen 325 Mg Tablet PO 650 mg Q4HR PRN Administration Pain 1 to 4, or Fever Bacitracin 1 packet 09/22/22 14:19 09/22/22 16:11 Bacitracin Zinc Oint 1 Packet TOP 1 packet PRN PRN Administration Skin Care Cyanocobalamin 500 mcg 09/25/22 09:00 10/07/22 08:26 Cyanocobalamin 500 Mcg Tablet PO Not Given DAILY LAZ Famotidine 20 mg 09/30/22 21:00 10/07/22 08:26 Famotidine 20 Mg Tablet PO 20 mg BID LAZ Administration Mineral Oil 1 applic 09/26/22 20:39 09/27/22 04:01 Min Oil/Dimethicon/Coconut Oil 92 Gm Tube TOP 1 applic PRN PRN Administration Skin Care Multi-Ingredient Lotion 3 ml 09/27/22 08:59 09/27/22 14:53 Parab/Cet Alc/Stryl Alc/Pg/Sls 473 Ml Bottle TOP 1 applic TID PRN Administration Acne Multivit/Folic Acid/Iron 1 tab 09/25/22 08:00 10/07/22 08:26 Vitamin Tablet PO Not Given DAILYWM LAZ Quetiapine Fumarate 25 mg 10/05/22 17:00 10/07/22 08:26 Quetiapine 25 Mg Tablet PO 25 mg 0900,1700 LAZ Administration Thiamine HCl 100 mg 09/28/22 09:00 10/07/22 08:27 Thiamine 100 Mg Tablet PO Not Given DAILY LAZ - Lab Result Fish Bone Diagrams: 10/01/22 05:25 09/30/22 04:45 - Additional Planning My Orders: My Active Orders 10/07/22 10:25 LORazepam [Ativan] 0.5 mg PO Q6H PRN 10/07/22 21:00 LORazepam [Ativan] 1 mg PO QPM Subjective - Subjective Patient Reports: No Complaints, Other (He admitted to me that he could not remember what he started saying, at mid-sentence.) Nursing Reports: Other (RNs report he gets confused and somewhat agitated/frust rated between 1800 and 0000. The new Lorazepam 0.5 mg dose started last night did nothing.) Objective Vital Signs: Vital Signs - 24 hr 10/06/22 10/07/22 10/07/22 15:33 02:20 10:00 Temperature 36.7 C 36.4 C L 36.5 C Heart Rate [ 83 73 77 Brachial] Respiratory 16 18 16 Rate Blood Pressure 137/70 H [Left Brachial artery] Blood Pressure 119/72 138/81 H [Right Brachial artery] O2 Saturation 100 100 99 Oxygen O2 Source Room air I&O (Last 24 Hrs): Intake and Output Totals x24h 10/05/22 10/06/22 10/07/22 23:59 23:59 23:59 Intake Total 720 1500 480 Output Total 225 Balance 495 1500 480 General: Alert, No acute distress HEENT: Atraumatic, Mucous membr. moist/pink Neck: Supple, No JVD Neuro: Alert, Disoriented, Non Focal Cardiovascular: Regular rate, No murmurs Respiratory: No respiratory distress, Breath sounds nml Abdomen: Normal bowel sounds, Soft Extremities: No clubbing, No edema, No tenderness/swelling - Results Results: Laboratory Results WBC 6.5 x10^3/uL (4.8-10.8) 10/01/22 05:25 RBC 4.93 10^6/uL (4.70-6.10) 10/01/22 05:25 Hgb 15.7 g/dL (14.0-18.0) 10/01/22 05:25 Hct 47.8 % (42.0-52.0) 10/01/22 05:25 MCV 97.0 fL (80.0-94.0) H 10/01/22 05:25 MCH 31.8 pg (27.0-31.0) H 10/01/22 05:25 MCHC 32.8 g/dL (32.0-36.0) 10/01/22 05:25 RDW 14.0 % (12.0-15.0) 10/01/22 05:25 Plt Count 218 10^3/uL (130-450) 10/01/22 05:25 MPV 10.0 fL (7.4-11.4) 10/01/22 05:25 Neut # (Auto) 4.2 10^3/uL (1.5-6.6) 10/01/22 05:25 Lymph # (Auto) 1.0 10^3/uL (1.5-3.5) L 10/01/22 05:25 [place] # (Auto) 1.0 10^3/uL (0.0-1.0) 10/01/22 05:25 Eos # (Auto) 0.3 10^3/uL (0.0-0.7) 10/01/22 05:25 Baso # (Auto) 0.1 10^3/uL (0.0-0.1) 10/01/22 05:25 Absolute Nucleated RBC 0.00 x10^3/uL 10/01/22 05:25 Nucleated RBC % 0.0 /100WBC 10/01/22 05:25 PT 11.3 secs (9.9-12.6) 09/22/22 08:46 INR 1.0 (0.8-1.2) 09/22/22 08:46 VBG pH 7.449 (7.31-7.41) H 09/27/22 04:20 Ionized Calcium 1.18 mmol/L (1.15-1.33) 09/27/22 04:20 Sodium 138 mmol/L (135-145) 09/30/22 04:45 Potassium 3.6 mmol/L (3.5-5.0) 09/30/22 04:45 Chloride 109 mmol/L (101-111) 09/30/22 04:45 Carbon Dioxide 24 mmol/L (21-32) 09/30/22 04:45 Anion Gap 5.0 (6-13) L 09/30/22 04:45 BUN 16 mg/dL (6-20) 09/30/22 04:45 Creatinine 0.7 mg/dL (0.6-1.2) 09/30/22 04:45 Estimated GFR (MDRD) 109 (>89) 09/30/22 04:45 Glucose 106 mg/dL (70-100) H 09/30/22 04:45 POC Whole Bld Glucose 205 mg/dL (70 - 100) H 09/22/22 08:50 Calcium 9.0 mg/dL (8.5-10.3) 09/30/22 04:45 Phosphorus 3.1 mg/dL (2.5-4.6) 09/27/22 04:20 Magnesium 1.8 mg/dL (1.7-2.8) 09/28/22 04:29 Total Bilirubin 1.2 mg/dL (0.2-1.0) H 09/27/22 08:40 Direct Bilirubin 0.2 mg/dL (0.1-0.5) 09/23/22 04:20 AST 22 IU/L (10-42) 09/27/22 08:40 ALT 24 IU/L (10-60) 09/27/22 08:40 Alkaline Phosphatase 54 IU/L (42-121) 09/27/22 08:40 Ammonia 16.5 umol/L (7-35) 09/27/22 08:40 Total Creatine Kinase 190 IU/L (22-269) 09/26/22 04:25 Total Protein 6.9 g/dL (6.7-8.2) 09/27/22 08:40 Albumin 3.4 g/dL (3.2-5.5) 09/27/22 08:40 Globulin 3.5 g/dL (2.1-4.2) 09/27/22 08:40 Albumin/Globulin Ratio 1.0 (1.0-2.2) 09/27/22 08:40 Lipase 37 U/L (22-51) 09/22/22 08:46 Vitamin B12 109 pg/mL (180-914) L 09/23/22 15:47 Folate 4.35 ng/mL (5.90 - >24.8) L 09/23/22 15:47 TSH 1.47 uIU/mL (0.34-5.60) 09/22/22 08:46 Urine Color YELLOW 09/22/22 09:30 Urine Clarity CLEAR (CLEAR) 09/22/22 09:30 Urine pH 5.5 PH (5.0-7.5) 09/22/22 09:30 Ur Specific [place] 1.020 (1.002-1.030) 09/22/22 09:30 Urine Protein NEGATIVE mg/dL (NEGATIVE) 09/22/22 09:30 Urine Glucose (UA) NEGATIVE mg/dL (NEGATIVE) 09/22/22 09:30 Urine Ketones TRACE mg/dL (NEGATIVE) 09/22/22 09:30 Urine Occult Blood SMALL (NEGATIVE) H 09/22/22 09:30 Urine Nitrite NEGATIVE (NEGATIVE) 09/22/22 09:30 Urine Bilirubin NEGATIVE (NEGATIVE) 09/22/22 09:30 Urine Urobilinogen 0.2 (NORMAL) E.U./dL (NORMAL) 09/22/22 09:30 Ur Leukocyte Esterase NEGATIVE (NEGATIVE) 09/22/22 09:30 Urine RBC 0-5 /HPF (0-5) 09/22/22 09:30 Urine WBC 0-3 /HPF (0-3) 09/22/22 09:30 Ur Squamous Epith Cells NONE SEEN (<= Few) 09/22/22 09:30 Urine Bacteria None Seen /HPF (None Seen) 09/22/22 09:30 Urine Casts 3-5 Hyaline Casts /LPF 09/22/22 09:30 Ur Microscopic Review INDICATED 09/22/22 09:30 Urine Culture Comments NOT INDICATED 09/22/22 09:30 Nasal Adenovirus (PCR) NOT DETECTED 09/22/22 10:48 Nasal B. parapertussis DNA (PCR) NOT DETECTED 09/22/22 10:48 Nasal Coronavir 229E PCR NOT DETECTED 09/22/22 10:48 Nasal Coronavir HKU1 PCR NOT DETECTED 09/22/22 10:48 Nasal Coronavir NL63 PCR NOT DETECTED 09/22/22 10:48 Nasal Coronavir OC43 PCR NOT DETECTED 09/22/22 10:48 Nasal Enterovir/Rhinovir PCR NOT DETECTED 09/22/22 10:48 Nasal Influenza B PCR NOT DETECTED 09/22/22 10:48 Nasal Influenza A PCR NOT DETECTED 09/22/22 10:48 Nasal Parainfluen 1 PCR NOT DETECTED 09/22/22 10:48 Nasal Parainfluen 2 PCR NOT DETECTED 09/22/22 10:48 Nasal Parainfluen 3 PCR NOT DETECTED 09/22/22 10:48 Nasal Parainfluen 4 PCR NOT DETECTED 09/22/22 10:48 Nasal RSV (PCR) NOT DETECTED 09/22/22 10:48 Nasal Screen MRSA (PCR) NEGATIVE (NEGATIVE) 09/22/22 12:00 Nasal B.pertussis DNA PCR NOT DETECTED 09/22/22 10:48 Nasal C.pneumoniae (PCR) NOT DETECTED 09/22/22 10:48 Rafa Human Metapneumo PCR NOT DETECTED 09/22/22 10:48 Nasal M.pneumoniae (PCR) NOT DETECTED 09/22/22 10:48 Nasal SARS-CoV-2 (PCR) NOT DETECTED 09/22/22 10:48 Salicylates < 6.0 mg/dL 09/22/22 08:46 Urine Opiates Screen NEGATIVE (NEGATIVE) 09/22/22 09:30 Ur Oxycodone Screen NEGATIVE (NEGATIVE) 09/22/22 09:30 Urine Methadone Screen NEGATIVE (NEGATIVE) 09/22/22 09:30 Ur Propoxyphene Screen NEGATIVE (NEGATIVE) 09/22/22 09:30 Acetaminophen < 10 ug/mL (10-30) L 09/22/22 08:46 Ur Barbiturates Screen NEGATIVE (NEGATIVE) 09/22/22 09:30 Ur Tricyclics Screen NEGATIVE (NEGATIVE) 09/22/22 09:30 Ur Phencyclidine Scrn NEGATIVE (NEGATIVE) 09/22/22 09:30 Ur Amphetamine Screen NEGATIVE (NEGATIVE) 09/22/22 09:30 U Methamphetamines Scrn NEGATIVE (NEGATIVE) 09/22/22 09:30 U Benzodiazepines Scrn NEGATIVE (NEGATIVE) 09/22/22 09:30 Urine Cocaine Screen NEGATIVE (NEGATIVE) 09/22/22 09:30 U Cannabinoids Screen NEGATIVE (NEGATIVE) 09/22/22 09:30 Ethyl Alcohol 55.8 mg/dL 09/22/22 08:46 Serum Ketones NEGATIVE (NEGATIVE) 09/22/22 08:46
[2022-10-07] MEDS ORDERED: LORazepam 0.5 MG TABLET PO SCH (21:00)
[2022-10-08] MEDS: THIAMINE 100 MG TABLET PO SCH (07:45)
[2022-10-08] MEDS: FAMOTIDINE 20 MG TABLET PO SCH ×2 (07:45→21:28)
[2022-10-08] MEDS: CYANOCOBALAMIN 500 MCG TABLET PO SCH (07:45)
[2022-10-08] MEDS: QUEtiapine 25 MG TABLET PO SCH (07:46)
[2022-10-08] MEDS: PRENATAL VITAMIN TABLET PO SCH (07:46)
--- NOTE | 2022-10-08 08:50 | PROVIDER PROGRESS NOTE ---
Assessment/Plan - Problem List (1) Wernicke-Korsakoff psychosis Assessment/Plan: Alcohol use was excessive and had been using for decades. He remains confused: He cannot remember where he is, cannot remember to use his walker when he wants to ambulate. Last night he got OOB 25 times, starting at about 1700 and cannot remember to stay in bed. 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 Has received adequate thiamine replacement. He is able to ambulate 300 feet w/ his walker and therefore does not need a SNF for rehab after Dch from this hospital stay. He had a SLUMS cognitive eval done 10/06/22, by OT and he scored 9/30, indicating severe cognitive impairment. Plan: We will continue thiamine 100 mg daily Will change the Seroquel dosing to nightime Trazadone Will cancel the Lorazepam as it had no effect. We will check his ammonia level intermittently, use Lactulose if it is indicated Provide supportive care and cuing He does not need a SNF for rehab after Dch from this hospital stay. Patient is unable to make his own decisions, based on the SLUMs cognitive evalu ation. He should no longer live alone and without caregivers. Social work and our crop farm helper have been in contact with his 2 daughters. The daughters do want him to be permanently placed in a NH, possibly in a memory care center for long-term care. (2) Circadian rhythm sleep disturbance Assessment/Plan: After he was not obtunded and was transferred out of ICU, we have noticed that he has Sundowning starting around 1500. He also has insomnia and is awake most of the night. On 09/30, we started him on Seroquel 25 mg twice daily, due to the Sundowning which helped somewhat. However with that, he is mostly asleep between 0900 to 1500. For the last 2 nights he has received oral Lorazepam at bedtime, which gave him no benefit, and he was still awake through the night. Plan: Will stop the Seroquel dosing, and prn Lorazepam dosing, since the NIH expert panel concluded there is no effectiveness of antipsychotics likes Seroquel for the treatment of insomnia and these meds create more risk than benefit in older pts. As per up-to-date,Trazodone 50 mg nightly is recommended and will be started. Also recommended is daytime bright light therapy and increased social interactions. (3) No able caregiver in household Assessment/Plan: Because of his severe cognitive impairment, he is unable to take care of himself at home, and prior to this he had lived alone. He has had 2 admissions for being found outside, confused and had rhabdomyolysis (this time with hypothermia). Plan: He has met his goals regarding PT and OT rehab, and is able to ambulate 300 feet, therefore is not a candidate to go to a SNF. Unfortunately, when he takes a break and put his walker aside, he cannot remember to restart walking using t he walker, and "furniture surfs". He is unable to make his own decisions. Therefore the 2 daughters are working with our Director Product Safety to find him permanent placement in a memory care geriatric unit (4) B12 and Folate deficiency Very likely due to poor diet during years of alcohol abuse Plan: B12 supplement has already been ordered, will add folic acid supplement daily (5) Alcohol abuse Assessment/Plan: His withdrawal resolved Plan: Continue him on oral thiamine, vitamin and nutritional support - Current Meds Current Meds: Current Medications Generic Name Dose Route Start Last Admin Trade Name Freq PRN Reason Stop Dose Admin Acetaminophen 650 mg 09/22/22 11:23 10/02/22 04:25 Acetaminophen 325 Mg Tablet PO 650 mg Q4HR PRN Administration Pain 1 to 4, or Fever Bacitracin 1 packet 09/22/22 14:19 09/22/22 16:11 Bacitracin Zinc Oint 1 Packet TOP 1 packet PRN PRN Administration Skin Care Cyanocobalamin 500 mcg 09/25/22 09:00 10/08/22 07:45 Cyanocobalamin 500 Mcg Tablet PO 500 mcg DAILY LAZ Administration Famotidine 20 mg 09/30/22 21:00 10/08/22 07:45 Famotidine 20 Mg Tablet PO 20 mg BID LAZ Administration Lorazepam 1 mg 10/07/22 21:00 10/07/22 20:15 Lorazepam 0.5 Mg Tablet PO 1 mg QPM LAZ Administration Lorazepam 0.5 mg 10/07/22 10:25 10/08/22 04:14 Lorazepam 0.5 Mg Tablet PO 0.5 mg Q6H PRN Administration Anxiety Mineral Oil 1 applic 09/26/22 20:39 09/27/22 04:01 Min Oil/Dimethicon/Coconut Oil 92 Gm Tube TOP 1 applic PRN PRN Administration Skin Care Multi-Ingredient Lotion 3 ml 09/27/22 08:59 09/27/22 14:53 Parab/Cet Alc/Stryl Alc/Pg/Sls 473 Ml Bottle TOP 1 applic TID PRN Administration Acne Multivit/Folic Acid/Iron 1 tab 09/25/22 08:00 10/08/22 07:46 Vitamin Tablet PO 1 tab DAILYWM LAZ Administration Quetiapine Fumarate 25 mg 10/05/22 17:00 10/08/22 07:46 Quetiapine 25 Mg Tablet PO 25 mg 0900,1700 LAZ Administration Thiamine HCl 100 mg 09/28/22 09:00 10/08/22 07:45 Thiamine 100 Mg Tablet PO 100 mg DAILY LAZ Administration - Lab Result Fish Bone Diagrams: 10/01/22 05:25 09/30/22 04:45 - Additional Planning My Orders: My Active Orders 10/07/22 10:25 LORazepam [Ativan] 0.5 mg PO Q6H PRN 10/07/22 21:00 LORazepam [Ativan] 1 mg PO QPM 10/08/22 18:00 haloperidoL [Haldol] 1 mg PO 1800 Subjective - Subjective Nursing Reports: Other (Asleep currently) Objective Vital Signs: Vital Signs - 24 hr 10/07/22 10/07/22 10/08/22 10:00 15:30 05:04 Temperature 36.5 C 36.6 C 36.4 C L Heart Rate [ 77 84 72 Brachial] Respiratory 16 16 16 Rate Blood Pressure 138/81 H 118/73 126/72 [Right Brachial artery] O2 Saturation 99 98 100 10/08/22 07:32 Temperature 36.4 C L Heart Rate [ 82 Brachial] Respiratory 16 Rate Blood Pressure 133/82 H [Right Brachial artery] O2 Saturation 99 Oxygen O2 Source Room air I&O (Last 24 Hrs): Intake and Output Totals x24h 10/06/22 10/07/22 10/08/22 23:59 23:59 23:59 Intake Total 1500 1080 100 Output Total 275 175 Balance 1500 805 -75 General: Other (asleep) HEENT: Mucous membr. moist/pink Neck: Supple Neuro: Disoriented Cardiovascular: Regular rate Respiratory: No respiratory distress Abdomen: Soft Extremities: No edema - Results Results: Laboratory Results WBC 6.5 x10^3/uL (4.8-10.8) 10/01/22 05:25 RBC 4.93 10^6/uL (4.70-6.10) 10/01/22 05:25 Hgb 15.7 g/dL (14.0-18.0) 10/01/22 05:25 Hct 47.8 % (42.0-52.0) 10/01/22 05:25 MCV 97.0 fL (80.0-94.0) H 10/01/22 05:25 MCH 31.8 pg (27.0-31.0) H 10/01/22 05:25 MCHC 32.8 g/dL (32.0-36.0) 10/01/22 05:25 RDW 14.0 % (12.0-15.0) 10/01/22 05:25 Plt Count 218 10^3/uL (130-450) 10/01/22 05:25 MPV 10.0 fL (7.4-11.4) 10/01/22 05:25 Neut # (Auto) 4.2 10^3/uL (1.5-6.6) 10/01/22 05:25 Lymph # (Auto) 1.0 10^3/uL (1.5-3.5) L 10/01/22 05:25 [place] # (Auto) 1.0 10^3/uL (0.0-1.0) 10/01/22 05:25 Eos # (Auto) 0.3 10^3/uL (0.0-0.7) 10/01/22 05:25 Baso # (Auto) 0.1 10^3/uL (0.0-0.1) 10/01/22 05:25 Absolute Nucleated RBC 0.00 x10^3/uL 10/01/22 05:25 Nucleated RBC % 0.0 /100WBC 10/01/22 05:25 PT 11.3 secs (9.9-12.6) 09/22/22 08:46 INR 1.0 (0.8-1.2) 09/22/22 08:46 VBG pH 7.449 (7.31-7.41) H 09/27/22 04:20 Ionized Calcium 1.18 mmol/L (1.15-1.33) 09/27/22 04:20 Sodium 138 mmol/L (135-145) 09/30/22 04:45 Potassium 3.6 mmol/L (3.5-5.0) 09/30/22 04:45 Chloride 109 mmol/L (101-111) 09/30/22 04:45 Carbon Dioxide 24 mmol/L (21-32) 09/30/22 04:45 Anion Gap 5.0 (6-13) L 09/30/22 04:45 BUN 16 mg/dL (6-20) 09/30/22 04:45 Creatinine 0.7 mg/dL (0.6-1.2) 09/30/22 04:45 Estimated GFR (MDRD) 109 (>89) 09/30/22 04:45 Glucose 106 mg/dL (70-100) H 09/30/22 04:45 POC Whole Bld Glucose 205 mg/dL (70 - 100) H 09/22/22 08:50 Calcium 9.0 mg/dL (8.5-10.3) 09/30/22 04:45 Phosphorus 3.1 mg/dL (2.5-4.6) 09/27/22 04:20 Magnesium 1.8 mg/dL (1.7-2.8) 09/28/22 04:29 Total Bilirubin 1.2 mg/dL (0.2-1.0) H 09/27/22 08:40 Direct Bilirubin 0.2 mg/dL (0.1-0.5) 09/23/22 04:20 AST 22 IU/L (10-42) 09/27/22 08:40 ALT 24 IU/L (10-60) 09/27/22 08:40 Alkaline Phosphatase 54 IU/L (42-121) 09/27/22 08:40 Ammonia 16.5 umol/L (7-35) 09/27/22 08:40 Total Creatine Kinase 190 IU/L (22-269) 09/26/22 04:25 Total Protein 6.9 g/dL (6.7-8.2) 09/27/22 08:40 Albumin 3.4 g/dL (3.2-5.5) 09/27/22 08:40 Globulin 3.5 g/dL (2.1-4.2) 09/27/22 08:40 Albumin/Globulin Ratio 1.0 (1.0-2.2) 09/27/22 08:40 Lipase 37 U/L (22-51) 09/22/22 08:46 Vitamin B12 109 pg/mL (180-914) L 09/23/22 15:47 Folate 4.35 ng/mL (5.90 - >24.8) L 09/23/22 15:47 TSH 1.47 uIU/mL (0.34-5.60) 09/22/22 08:46 Urine Color YELLOW 09/22/22 09:30 Urine Clarity CLEAR (CLEAR) 09/22/22 09:30 Urine pH 5.5 PH (5.0-7.5) 09/22/22 09:30 Ur Specific [place] 1.020 (1.002-1.030) 09/22/22 09:30 Urine Protein NEGATIVE mg/dL (NEGATIVE) 09/22/22 09:30 Urine Glucose (UA) NEGATIVE mg/dL (NEGATIVE) 09/22/22 09:30 Urine Ketones TRACE mg/dL (NEGATIVE) 09/22/22 09:30 Urine Occult Blood SMALL (NEGATIVE) H 09/22/22 09:30 Urine Nitrite NEGATIVE (NEGATIVE) 09/22/22 09:30 Urine Bilirubin NEGATIVE (NEGATIVE) 09/22/22 09:30 Urine Urobilinogen 0.2 (NORMAL) E.U./dL (NORMAL) 09/22/22 09:30 Ur Leukocyte Esterase NEGATIVE (NEGATIVE) 09/22/22 09:30 Urine RBC 0-5 /HPF (0-5) 09/22/22 09:30 Urine WBC 0-3 /HPF (0-3) 09/22/22 09:30 Ur Squamous Epith Cells NONE SEEN (<= Few) 09/22/22 09:30 Urine Bacteria None Seen /HPF (None Seen) 09/22/22 09:30 Urine Casts 3-5 Hyaline Casts /LPF 09/22/22 09:30 Ur Microscopic Review INDICATED 09/22/22 09:30 Urine Culture Comments NOT INDICATED 09/22/22 09:30 Nasal Adenovirus (PCR) NOT DETECTED 09/22/22 10:48 Nasal B. parapertussis DNA (PCR) NOT DETECTED 09/22/22 10:48 Nasal Coronavir 229E PCR NOT DETECTED 09/22/22 10:48 Nasal Coronavir HKU1 PCR NOT DETECTED 09/22/22 10:48 Nasal Coronavir NL63 PCR NOT DETECTED 09/22/22 10:48 Nasal Coronavir OC43 PCR NOT DETECTED 09/22/22 10:48 Nasal Enterovir/Rhinovir PCR NOT DETECTED 09/22/22 10:48 Nasal Influenza B PCR NOT DETECTED 09/22/22 10:48 Nasal Influenza A PCR NOT DETECTED 09/22/22 10:48 Nasal Parainfluen 1 PCR NOT DETECTED 09/22/22 10:48 Nasal Parainfluen 2 PCR NOT DETECTED 09/22/22 10:48 Nasal Parainfluen 3 PCR NOT DETECTED 09/22/22 10:48 Nasal Parainfluen 4 PCR NOT DETECTED 09/22/22 10:48 Nasal RSV (PCR) NOT DETECTED 09/22/22 10:48 Nasal Screen MRSA (PCR) NEGATIVE (NEGATIVE) 09/22/22 12:00 Nasal B.pertussis DNA PCR NOT DETECTED 09/22/22 10:48 Nasal C.pneumoniae (PCR) NOT DETECTED 09/22/22 10:48 Rafa Human Metapneumo PCR NOT DETECTED 09/22/22 10:48 Nasal M.pneumoniae (PCR) NOT DETECTED 09/22/22 10:48 Nasal SARS-CoV-2 (PCR) NOT DETECTED 09/22/22 10:48 Salicylates < 6.0 mg/dL 09/22/22 08:46 Urine Opiates Screen NEGATIVE (NEGATIVE) 09/22/22 09:30 Ur Oxycodone Screen NEGATIVE (NEGATIVE) 09/22/22 09:30 Urine Methadone Screen NEGATIVE (NEGATIVE) 09/22/22 09:30 Ur Propoxyphene Screen NEGATIVE (NEGATIVE) 09/22/22 09:30 Acetaminophen < 10 ug/mL (10-30) L 09/22/22 08:46 Ur Barbiturates Screen NEGATIVE (NEGATIVE) 09/22/22 09:30 Ur Tricyclics Screen NEGATIVE (NEGATIVE) 09/22/22 09:30 Ur Phencyclidine Scrn NEGATIVE (NEGATIVE) 09/22/22 09:30 Ur Amphetamine Screen NEGATIVE (NEGATIVE) 09/22/22 09:30 U Methamphetamines Scrn NEGATIVE (NEGATIVE) 09/22/22 09:30 U Benzodiazepines Scrn NEGATIVE (NEGATIVE) 09/22/22 09:30 Urine Cocaine Screen NEGATIVE (NEGATIVE) 09/22/22 09:30 U Cannabinoids Screen NEGATIVE (NEGATIVE) 09/22/22 09:30 Ethyl Alcohol 55.8 mg/dL 09/22/22 08:46 Serum Ketones NEGATIVE (NEGATIVE) 09/22/22 08:46
[2022-10-08] MEDS ORDERED: QUEtiapine 25 MG TABLET PO SCH ×2 (12:00→18:00)
[2022-10-08] MEDS: FOLIC ACID 1 MG TABLET PO SCH (12:17)
[2022-10-08] MEDS ORDERED: HALOPERIDOL 5 MG/ML VIAL IM ONE (13:14)
--- NOTE | 2022-10-08 13:59 | PROVIDER PROGRESS NOTE ---
Restraint [id number] - Immediate Situation Face to Face Evaluation Date: 10/08/22 Face to Face Evaluation Time: 14:00 Restraint Classification: Violent, chemical (Haldol 1 mg im was given) Restraint Type: Chemical - Patient's Reaction & Behaviors Safety: Non-compliant, Unable to Follow Commands Verbal: Demanding Harm: Potential harm to others Physical: Aggressive behavior Other: Disruption of therapy (He refuses to wear a mask, when he tried to ambulate in the hallway twice) - Behavioral Condition Attitude: Open Attitude Comment: He is trying to leave his room, says he [place] walk [place] Behavior: Uncooperative Orientation: Person (Only oriented to self) Mood: Angry - Evaluation Review of Systems: He has no current complaints Pertinent History/Illicit Drugs/Medications/Results: He has Warnicke Korsakoff syndrome, severe dementia with score of 9/30 on a SLUMS eval. We have tried Seroquel oral which has only helped for several hours after each dose. He has had no response to Lorazepam oral. Haldol IM was tried now for the first time. - Plan Need to Continue or Terminate Violent or Chemical Restraint: Plan is to just give this current dose of Haldol im x1, since he is somewhat less agitated and aggravated compared to before it was given.
[2022-10-08] MEDS ORDERED: haloperidoL 1 MG TABLET PO SCH (18:00)
[2022-10-08] MEDS: traZODone 50 MG TABLET PO SCH (21:28)
[2022-10-09] MEDS: FOLIC ACID 1 MG TABLET PO SCH (08:20)
[2022-10-09] MEDS: PRENATAL VITAMIN TABLET PO SCH (08:21)
[2022-10-09] MEDS: THIAMINE 100 MG TABLET PO SCH (08:21)
[2022-10-09] MEDS: CYANOCOBALAMIN 500 MCG TABLET PO SCH (08:21)
[2022-10-09] MEDS: FAMOTIDINE 20 MG TABLET PO SCH ×2 (08:21→20:27)
[2022-10-09] MEDS: QUEtiapine 25 MG TABLET PO SCH ×2 (11:58→17:04)
--- NOTE | 2022-10-09 16:26 | PROVIDER PROGRESS NOTE ---
Assessment/Plan - Problem List (1) Wernicke-Korsakoff psychosis Assessment/Plan: Alcohol use was excessive and had been using for decades. He remains confused: He cannot remember where he is, cannot remember to use his walker when he wants to ambulate. Last night he got OOB 25 times, starting at about 1700 and cannot remember to stay in bed. 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 Has received adequate thiamine replacement. He is able to ambulate 300 feet w/ his walker and therefore does not need a SNF for rehab after Dch from this hospital stay. He had a [facility] cognitive eval done 10/06/22, by OT and he scored 9/30, indicating severe cognitive impairment. Yesterday and today he displayed some aggressive behavior (pointed his finger at me and said "you are fired". Told his nurse to go down to the basement with him. Takes his pajamas and puts it around his neck like a cape of Superman) Plan: We will continue thiamine 100 mg daily Resume the the Seroquel at a lower dose (12.5 mg and give at 1200 and 1800) Continue nightime Trazadone 50 mg Remain off the Lorazepam as it had no effect. We will check his ammonia level intermittently, use Lactulose if it is indicated Provide supportive care and cuing He does not need a SNF for rehab after Dch from this hospital stay. Patient is unable to make his own decisions, based on the [facility] cognitive evaluation. He should no longer live alone and without caregivers. Social work and our explosive operator bomb have been in contact with his 2 daughters. The daughters do want him to be permanently placed in a NH, possibly in a memory care center for long-term care. (2) Circadian rhythm sleep disturbance Assessment/Plan: After he was not obtunded and was transferred out of ICU, we have noticed that he has Sundowning starting around 1500. He also has insomnia and is awake most of the night. On 09/30, we started him on Seroquel 25 mg twice daily, due to the Sundowning which helped somewhat. However with that, he is mostly asleep between 0900 to 1500. For the last 2 nights he has received oral Lorazepam at bedtime, which gave him no benefit, and he was still awake through the night. Plan: Will stop the Seroquel dosing, and prn Lorazepam dosing, since the NIH expert panel concluded there is no effectiveness of antipsychotics likes Seroquel for the treatment of insomnia and these meds create more risk than benefit in older pts. As per up-to-date,Trazodone 50 mg nightly is recommended and will be started. Also recommended is daytime bright light therapy and increased social interactions. (3) No able caregiver in household Assessment/Plan: Because of his severe cognitive impairment, he is unable to take care of himself at home, and prior to this he had lived alone. He has had 2 admissions for being found outside, confused and had rhabdomyolysis (this time with hypothermia). Plan: He has met his goals regarding PT and OT rehab, and is able to ambulate 300 feet, therefore is not a candidate to go to a SNF. Unfortunately, when he takes a break and put his walker aside, he cannot remember to restart walking using the walker, and "furniture surfs". He is unable to make his own decisions. Therefore the 2 daughters are working with our Change Consultant to find him permanent placement in a memory care geriatric unit (4) B12 and Folate deficiency Very likely due to poor diet during years of alcohol abuse Plan: B12 supplement has already been ordered, will add folic acid supplement daily (5) Alcohol abuse Assessment/Plan: His withdrawal resolved Plan: Continue him on oral thiamine, vitamin and nutritional support - Current Meds Current Meds: Current Medications Generic Name Dose Route Start Last Admin Trade Name Aurelio PRN Reason Stop Dose Admin Acetaminophen 650 mg 09/22/22 11:23 10/02/22 04:25 Acetaminophen 325 Mg Tablet PO 650 mg Q4HR PRN Administration Pain 1 to 4, or Fever Bacitracin 1 packet 09/22/22 14:19 09/22/22 16:11 Bacitracin Zinc Oint 1 Packet TOP 1 packet PRN PRN Administration Skin Care Cyanocobalamin 500 mcg 09/25/22 09:00 10/09/22 08:21 Cyanocobalamin 500 Mcg Tablet PO 500 mcg DAILY LAZ Administration Famotidine 20 mg 09/30/22 21:00 10/09/22 08:21 Famotidine 20 Mg Tablet PO 20 mg BID LAZ Administration Folic Acid 1 mg 10/08/22 12:00 10/09/22 08:20 Folic Acid 1 Mg Tablet PO 1 mg DAILY LAZ Administration Mineral Oil 1 applic 09/26/22 20:39 09/27/22 04:01 Min Oil/Dimethicon/Coconut Oil 92 Gm Tube TOP 1 applic PRN PRN Administration Skin Care Multi-Ingredient Lotion 3 ml 09/27/22 08:59 09/27/22 14:53 Parab/Cet Alc/Stryl Alc/Pg/Sls 473 Ml Bottle TOP 1 applic TID PRN Administration Acne Multivit/Folic Acid/Iron 1 tab 09/25/22 08:00 10/09/22 08:21 Vitamin Tablet PO 1 tab DAILYWM LAZ Administration Quetiapine Fumarate 12.5 mg 10/09/22 12:00 10/09/22 11:58 Quetiapine 25 Mg Tablet PO 12.5 mg 1200,1800 LAZ Administration Thiamine HCl 100 mg 09/28/22 09:00 10/09/22 08:21 Thiamine 100 Mg Tablet PO 100 mg DAILY LAZ Administration Trazodone HCl 50 mg 10/08/22 20:00 10/08/22 21:28 Trazodone 50 Mg Tablet PO 50 mg 1999 LAZ Administration - Lab Result Fish Bone Diagrams: 10/01/22 05:25 09/30/22 04:45 - Additional Planning My Orders: My Active Orders 10/08/22 Dinner Low Sodium Diet [DIET] 10/08/22 20:00 traZODone [Desyrel] 50 mg PO 2000 10/09/22 12:00 QUEtiapine [SEROquel] 12.5 mg PO 1200,1800 Objective Vital Signs: Vital Signs - 24 hr 10/09/22 10/09/22 08:15 15:52 Temperature 36.3 C L 36.5 C Heart Rate [ 66 100 Brachial] Respiratory 18 20 Rate Blood Pressure 108/60 117/76 [Right Brachial artery] O2 Saturation 100 100 Oxygen O2 Source Room air I&O (Last 24 Hrs): Intake and Output Totals x24h 10/07/22 10/08/22 10/09/22 23:59 23:59 23:59 Intake Total 1080 580 500 Output Total 275 175 Balance 805 405 500 General: Alert, No acute distress HEENT: Mucous membr. moist/pink Neck: Supple Neuro: Alert, Disoriented, Non Focal Cardiovascular: Regular rate Respiratory: No respiratory distress Abdomen: Soft Extremities: No clubbing, No edema - Results Results: Laboratory Results WBC 6.5 x10^3/uL (4.8-10.8) 10/01/22 05:25 RBC 4.93 10^6/uL (4.70-6.10) 10/01/22 05:25 Hgb 15.7 g/dL (14.0-18.0) 10/01/22 05:25 Hct 47.8 % (42.0-52.0) 10/01/22 05:25 MCV 97.0 fL (80.0-94.0) H 10/01/22 05:25 MCH 31.8 pg (27.0-31.0) H 10/01/22 05:25 MCHC 32.8 g/dL (32.0-36.0) 10/01/22 05:25 RDW 14.0 % (12.0-15.0) 10/01/22 05:25 Plt Count 218 10^3/uL (130-450) 10/01/22 05:25 MPV 10.0 fL (7.4-11.4) 10/01/22 05:25 Neut # (Auto) 4.2 10^3/uL (1.5-6.6) 10/01/22 05:25 Lymph # (Auto) 1.0 10^3/uL (1.5-3.5) L 10/01/22 05:25 [place] # (Auto) 1.0 10^3/uL (0.0-1.0) 10/01/22 05:25 Eos # (Auto) 0.3 10^3/uL (0.0-0.7) 10/01/22 05:25 Baso # (Auto) 0.1 10^3/uL (0.0-0.1) 10/01/22 05:25 Absolute Nucleated RBC 0.00 x10^3/uL 10/01/22 05:25 Nucleated RBC % 0.0 /100WBC 10/01/22 05:25 PT 11.3 secs (9.9-12.6) 09/22/22 08:46 INR 1.0 (0.8-1.2) 09/22/22 08:46 VBG pH 7.449 (7.31-7.41) H 09/27/22 04:20 Ionized Calcium 1.18 mmol/L (1.15-1.33) 09/27/22 04:20 Sodium 138 mmol/L (135-145) 09/30/22 04:45 Potassium 3.6 mmol/L (3.5-5.0) 09/30/22 04:45 Chloride 109 mmol/L (101-111) 09/30/22 04:45 Carbon Dioxide 24 mmol/L (21-32) 09/30/22 04:45 Anion Gap 5.0 (6-13) L 09/30/22 04:45 BUN 16 mg/dL (6-20) 09/30/22 04:45 Creatinine 0.7 mg/dL (0.6-1.2) 09/30/22 04:45 Estimated GFR (MDRD) 109 (>89) 09/30/22 04:45 Glucose 106 mg/dL (70-100) H 09/30/22 04:45 POC Whole Bld Glucose 205 mg/dL (70 - 100) H 09/22/22 08:50 Calcium 9.0 mg/dL (8.5-10.3) 09/30/22 04:45 Phosphorus 3.1 mg/dL (2.5-4.6) 09/27/22 04:20 Magnesium 1.8 mg/dL (1.7-2.8) 09/28/22 04:29 Total Bilirubin 1.2 mg/dL (0.2-1.0) H 09/27/22 08:40 Direct Bilirubin 0.2 mg/dL (0.1-0.5) 09/23/22 04:20 AST 22 IU/L (10-42) 09/27/22 08:40 ALT 24 IU/L (10-60) 09/27/22 08:40 Alkaline Phosphatase 54 IU/L (42-121) 09/27/22 08:40 Ammonia 16.5 umol/L (7-35) 09/27/22 08:40 Total Creatine Kinase 190 IU/L (22-269) 09/26/22 04:25 Total Protein 6.9 g/dL (6.7-8.2) 09/27/22 08:40 Albumin 3.4 g/dL (3.2-5.5) 09/27/22 08:40 Globulin 3.5 g/dL (2.1-4.2) 09/27/22 08:40 Albumin/Globulin Ratio 1.0 (1.0-2.2) 09/27/22 08:40 Lipase 37 U/L (22-51) 09/22/22 08:46 Vitamin B12 109 pg/mL (180-914) L 09/23/22 15:47 Folate 4.35 ng/mL (5.90 - >24.8) L 09/23/22 15:47 TSH 1.47 uIU/mL (0.34-5.60) 09/22/22 08:46 Urine Color YELLOW 09/22/22 09:30 Urine Clarity CLEAR (CLEAR) 09/22/22 09:30 Urine pH 5.5 PH (5.0-7.5) 09/22/22 09:30 Ur Specific [place] 1.020 (1.002-1.030) 09/22/22 09:30 Urine Protein NEGATIVE mg/dL (NEGATIVE) 09/22/22 09:30 Urine Glucose (UA) NEGATIVE mg/dL (NEGATIVE) 09/22/22 09:30 Urine Ketones TRACE mg/dL (NEGATIVE) 09/22/22 09:30 Urine Occult Blood SMALL (NEGATIVE) H 09/22/22 09:30 Urine Nitrite NEGATIVE (NEGATIVE) 09/22/22 09:30 Urine Bilirubin NEGATIVE (NEGATIVE) 09/22/22 09:30 Urine Urobilinogen 0.2 (NORMAL) E.U./dL (NORMAL) 09/22/22 09:30 Ur Leukocyte Esterase NEGATIVE (NEGATIVE) 09/22/22 09:30 Urine RBC 0-5 /HPF (0-5) 09/22/22 09:30 Urine WBC 0-3 /HPF (0-3) 09/22/22 09:30 Ur Squamous Epith Cells NONE SEEN (<= Few) 09/22/22 09:30 Urine Bacteria None Seen /HPF (None Seen) 09/22/22 09:30 Urine Casts 3-5 Hyaline Casts /LPF 09/22/22 09:30 Ur Microscopic Review INDICATED 09/22/22 09:30 Urine Culture Comments NOT INDICATED 09/22/22 09:30 Nasal Adenovirus (PCR) NOT DETECTED 09/22/22 10:48 Nasal B. parapertussis DNA (PCR) NOT DETECTED 09/22/22 10:48 Nasal Coronavir 229E PCR NOT DETECTED 09/22/22 10:48 Nasal Coronavir HKU1 PCR NOT DETECTED 09/22/22 10:48 Nasal Coronavir NL63 PCR NOT DETECTED 09/22/22 10:48 Nasal Coronavir OC43 PCR NOT DETECTED 09/22/22 10:48 Nasal Enterovir/Rhinovir PCR NOT DETECTED 09/22/22 10:48 Nasal Influenza B PCR NOT DETECTED 09/22/22 10:48 Nasal Influenza A PCR NOT DETECTED 09/22/22 10:48 Nasal Parainfluen 1 PCR NOT DETECTED 09/22/22 10:48 Nasal Parainfluen 2 PCR NOT DETECTED 09/22/22 10:48 Nasal Parainfluen 3 PCR NOT DETECTED 09/22/22 10:48 Nasal Parainfluen 4 PCR NOT DETECTED 09/22/22 10:48 Nasal RSV (PCR) NOT DETECTED 09/22/22 10:48 Nasal Screen MRSA (PCR) NEGATIVE (NEGATIVE) 09/22/22 12:00 Nasal B.pertussis DNA PCR NOT DETECTED 09/22/22 10:48 Nasal C.pneumoniae (PCR) NOT DETECTED 09/22/22 10:48 Rafa Human Metapneumo PCR NOT DETECTED 09/22/22 10:48 Nasal M.pneumoniae (PCR) NOT DETECTED 09/22/22 10:48 Nasal SARS-CoV-2 (PCR) NOT DETECTED 09/22/22 10:48 Salicylates < 6.0 mg/dL 09/22/22 08:46 Urine Opiates Screen NEGATIVE (NEGATIVE) 09/22/22 09:30 Ur Oxycodone Screen NEGATIVE (NEGATIVE) 09/22/22 09:30 Urine Methadone Screen NEGATIVE (NEGATIVE) 09/22/22 09:30 Ur Propoxyphene Screen NEGATIVE (NEGATIVE) 09/22/22 09:30 Acetaminophen < 10 ug/mL (10-30) L 09/22/22 08:46 Ur Barbiturates Screen NEGATIVE (NEGATIVE) 09/22/22 09:30 Ur Tricyclics Screen NEGATIVE (NEGATIVE) 09/22/22 09:30 Ur Phencyclidine Scrn NEGATIVE (NEGATIVE) 09/22/22 09:30 Ur Amphetamine Screen NEGATIVE (NEGATIVE) 09/22/22 09:30 U Methamphetamines Scrn NEGATIVE (NEGATIVE) 09/22/22 09:30 U Benzodiazepines Scrn NEGATIVE (NEGATIVE) 09/22/22 09:30 Urine Cocaine Screen NEGATIVE (NEGATIVE) 09/22/22 09:30 U Cannabinoids Screen NEGATIVE (NEGATIVE) 09/22/22 09:30 Ethyl Alcohol 55.8 mg/dL 09/22/22 08:46 Serum Ketones NEGATIVE (NEGATIVE) 09/22/22 08:46
[2022-10-09] MEDS: traZODone 50 MG TABLET PO SCH (20:26)
[2022-10-10] MEDS: FAMOTIDINE 20 MG TABLET PO SCH ×3 (08:29→22:04)
[2022-10-10] MEDS: FOLIC ACID 1 MG TABLET PO SCH (08:29)
[2022-10-10] MEDS: PRENATAL VITAMIN TABLET PO SCH (08:29)
[2022-10-10] MEDS: CYANOCOBALAMIN 500 MCG TABLET PO SCH (08:29)
[2022-10-10] MEDS: THIAMINE 100 MG TABLET PO SCH (08:29)
[2022-10-10] MEDS: QUEtiapine 25 MG TABLET PO SCH ×2 (11:59→17:25)
[2022-10-10] MEDS ORDERED: traZODone 50 MG TABLET PO SCH (20:00)
--- NOTE | 2022-10-10 20:12 | PROVIDER PROGRESS NOTE ---
Assessment/Plan - Problem List (1) Wernicke-Korsakoff psychosis Assessment/Plan: Alcohol use was excessive and had been using for decades. He remains confused: He cannot remember where he is, is "firing" staff. He is able to ambulate 300 feet w/ his walker and therefore does not need a SNF for rehab after Dch from this hospital stay. 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 Has received adequate thiamine replacement. He had a [facility] cognitive eval done 10/06/22, by OT and he scored 9/30, indicating severe cognitive impairment. After he displayed some aggressive behavior, we started Seroquel and also Trazadone. Combination is improving his overall cooperativeness Plan: We will continue thiamine 100 mg daily Continue the resumed Seroquel at the lower dose of 12.5 mg and give at 1200 and 1800 Will increase nightime Trazadone from 50 mg to 75 mg scheduled, since he was still not asleep through the night. Remain off the Lorazepam as it had no effect. We will check his ammonia level intermittently, use Lactulose if it is indicated Provide supportive care and cuing He does not need a SNF for rehab after Dch from this hospital stay. Patient is unable to make his own decisions, based on the [facility] cognitive evaluation. He should no longer live alone and without caregivers. Social work and our project engineer have been in contact with his 2 daughters. The daughters do want him to be permanently placed in a NH, in a memory care center for long-term care. (2) Circadian rhythm sleep disturbance Assessment/Plan: After he was not obtunded and was transferred out of ICU, we have noticed that he has Sundowning starting around 1500. He also has insomnia and is awake most of the night. On 09/30, we started him on Seroquel 25 mg twice daily, due to the Sundowning which helped somewhat. he has received oral Lorazepam at bedtime, which gave him no benefit, and he was still awake through the night. Trazodone was started yesterday and there was a slightly longer sleep. But not through the night Plan: Will stop prn Lorazepam dosing, since the NIH expert panel concluded there is no effectiveness Will continue a low dose of Seroquel for the treatment of agitation As per up-to-date,Trazodone nightly is recommended and will continue that and increase from 50 mg to 75 mg Also recommended is daytime bright light therapy and increased social interactions, which has been ordered. (3) No able caregiver in household Assessment/Plan: Because of his severe cognitive impairment, he is unable to take care of himself at home, and prior to this he had lived alone. He has had 2 admissions for being found outside, confused and had rhabdomyolysis (this time with hypothermia). Plan: He has met his goals regarding PT and OT rehab, and is able to ambulate 300 feet, therefore is not a candidate to go to a SNF. Unfortunately, when he takes a break and put his walker aside, he cannot remember to restart walking using the walker, and "furniture surfs". He is unable to make his own decisions. Therefore the 2 daughters are working with our Answering Service Agent to find him permanent placement in a memory care geriatric unit (4) B12 and Folate deficiency Very likely due to poor diet during years of alcohol abuse Plan: B12 supplement and folic acid supplement daily ordered (5) Alcohol abuse Assessment/Plan: His withdrawal resolved Plan: Continue him on oral thiamine, vitamin and nutritional support - Current Meds Current Meds: Current Medications Generic Name Dose Route Start Last Admin Trade Name Aurelio PRN Reason Stop Dose Admin Acetaminophen 650 mg 09/22/22 11:23 10/02/22 04:25 Acetaminophen 325 Mg Tablet PO 650 mg Q4HR PRN Administration Pain 1 to 4, or Fever Bacitracin 1 packet 09/22/22 14:19 09/22/22 16:11 Bacitracin Zinc Oint 1 Packet TOP 1 packet PRN PRN Administration Skin Care Cyanocobalamin 500 mcg 09/25/22 09:00 10/10/22 08:29 Cyanocobalamin 500 Mcg Tablet PO 500 mcg DAILY LAZ Administration Famotidine 20 mg 09/30/22 21:00 10/10/22 08:29 Famotidine 20 Mg Tablet PO 20 mg BID LAZ Administration Folic Acid 1 mg 10/08/22 12:00 10/10/22 08:29 Folic Acid 1 Mg Tablet PO 1 mg DAILY LAZ Administration Mineral Oil 1 applic 09/26/22 20:39 09/27/22 04:01 Min Oil/Dimethicon/Coconut Oil 92 Gm Tube TOP 1 applic PRN PRN Administration Skin Care Multi-Ingredient Lotion 3 ml 09/27/22 08:59 09/27/22 14:53 Parab/Cet Alc/Stryl Alc/Pg/Sls 473 Ml Bottle TOP 1 applic TID PRN Administration Acne Multivit/Folic Acid/Iron 1 tab 09/25/22 08:00 10/10/22 08:29 Vitamin Tablet PO 1 tab DAILYWM LAZ Administration Quetiapine Fumarate 12.5 mg 10/09/22 12:00 10/10/22 17:25 Quetiapine 25 Mg Tablet PO 12.5 mg 1200,1800 LAZ Administration Thiamine HCl 100 mg 09/28/22 09:00 10/10/22 08:29 Thiamine 100 Mg Tablet PO 100 mg DAILY LAZ Administration - Lab Result Fish Bone Diagrams: 10/01/22 05:25 09/30/22 04:45 - Additional Planning My Orders: My Active Orders 10/10/22 20:00 traZODone [Desyrel] 75 mg PO 1999 Subjective - Subjective Patient Reports: No Complaints Nursing Reports: Other (His RN reports he is focused on folding bedsheets, his hospital gown and is less agitated, slept a bit longer through the night on the new Trazadone.) Objective Vital Signs: Vital Signs - 24 hr 10/10/22 10/10/22 08:24 16:26 Temperature 36.2 C L 36.5 C Heart Rate [ 67 86 Brachial] Respiratory 18 18 Rate Blood Pressure 118/80 147/86 H [Right Brachial artery] O2 Saturation 99 100 Oxygen O2 Source Room air I&O (Last 24 Hrs): Intake and Output Totals x24h 10/08/22 10/09/22 10/10/22 23:59 23:59 23:59 Intake Total 580 1330 720 Output Total 175 Balance 405 1330 720 General: Alert HEENT: Mucous membr. moist/pink Neck: Supple Neuro: Alert, Disoriented, Non Focal Cardiovascular: Regular rate Respiratory: No respiratory distress Abdomen: Soft Extremities: No edema - Results Results: Laboratory Results WBC 6.5 x10^3/uL (4.8-10.8) 10/01/22 05:25 RBC 4.93 10^6/uL (4.70-6.10) 10/01/22 05:25 Hgb 15.7 g/dL (14.0-18.0) 10/01/22 05:25 Hct 47.8 % (42.0-52.0) 10/01/22 05:25 MCV 97.0 fL (80.0-94.0) H 10/01/22 05:25 MCH 31.8 pg (27.0-31.0) H 10/01/22 05:25 MCHC 32.8 g/dL (32.0-36.0) 10/01/22 05:25 RDW 14.0 % (12.0-15.0) 10/01/22 05:25 Plt Count 218 10^3/uL (130-450) 10/01/22 05:25 MPV 10.0 fL (7.4-11.4) 10/01/22 05:25 Neut # (Auto) 4.2 10^3/uL (1.5-6.6) 10/01/22 05:25 Lymph # (Auto) 1.0 10^3/uL (1.5-3.5) L 10/01/22 05:25 [place] # (Auto) 1.0 10^3/uL (0.0-1.0) 10/01/22 05:25 Eos # (Auto) 0.3 10^3/uL (0.0-0.7) 10/01/22 05:25 Baso # (Auto) 0.1 10^3/uL (0.0-0.1) 10/01/22 05:25 Absolute Nucleated RBC 0.00 x10^3/uL 10/01/22 05:25 Nucleated RBC % 0.0 /100WBC 10/01/22 05:25 PT 11.3 secs (9.9-12.6) 09/22/22 08:46 INR 1.0 (0.8-1.2) 09/22/22 08:46 VBG pH 7.449 (7.31-7.41) H 09/27/22 04:20 Ionized Calcium 1.18 mmol/L (1.15-1.33) 09/27/22 04:20 Sodium 138 mmol/L (135-145) 09/30/22 04:45 Potassium 3.6 mmol/L (3.5-5.0) 09/30/22 04:45 Chloride 109 mmol/L (101-111) 09/30/22 04:45 Carbon Dioxide 24 mmol/L (21-32) 09/30/22 04:45 Anion Gap 5.0 (6-13) L 09/30/22 04:45 BUN 16 mg/dL (6-20) 09/30/22 04:45 Creatinine 0.7 mg/dL (0.6-1.2) 09/30/22 04:45 Estimated GFR (MDRD) 109 (>89) 09/30/22 04:45 Glucose 106 mg/dL (70-100) H 09/30/22 04:45 POC Whole Bld Glucose 205 mg/dL (70 - 100) H 09/22/22 08:50 Calcium 9.0 mg/dL (8.5-10.3) 09/30/22 04:45 Phosphorus 3.1 mg/dL (2.5-4.6) 09/27/22 04:20 Magnesium 1.8 mg/dL (1.7-2.8) 09/28/22 04:29 Total Bilirubin 1.2 mg/dL (0.2-1.0) H 09/27/22 08:40 Direct Bilirubin 0.2 mg/dL (0.1-0.5) 09/23/22 04:20 AST 22 IU/L (10-42) 09/27/22 08:40 ALT 24 IU/L (10-60) 09/27/22 08:40 Alkaline Phosphatase 54 IU/L (42-121) 09/27/22 08:40 Ammonia 16.5 umol/L (7-35) 09/27/22 08:40 Total Creatine Kinase 190 IU/L (22-269) 09/26/22 04:25 Total Protein 6.9 g/dL (6.7-8.2) 09/27/22 08:40 Albumin 3.4 g/dL (3.2-5.5) 09/27/22 08:40 Globulin 3.5 g/dL (2.1-4.2) 09/27/22 08:40 Albumin/Globulin Ratio 1.0 (1.0-2.2) 09/27/22 08:40 Lipase 37 U/L (22-51) 09/22/22 08:46 Vitamin B12 109 pg/mL (180-914) L 09/23/22 15:47 Folate 4.35 ng/mL (5.90 - >24.8) L 09/23/22 15:47 TSH 1.47 uIU/mL (0.34-5.60) 09/22/22 08:46 Urine Color YELLOW 09/22/22 09:30 Urine Clarity CLEAR (CLEAR) 09/22/22 09:30 Urine pH 5.5 PH (5.0-7.5) 09/22/22 09:30 Ur Specific [place] 1.020 (1.002-1.030) 09/22/22 09:30 Urine Protein NEGATIVE mg/dL (NEGATIVE) 09/22/22 09:30 Urine Glucose (UA) NEGATIVE mg/dL (NEGATIVE) 09/22/22 09:30 Urine Ketones TRACE mg/dL (NEGATIVE) 09/22/22 09:30 Urine Occult Blood SMALL (NEGATIVE) H 09/22/22 09:30 Urine Nitrite NEGATIVE (NEGATIVE) 09/22/22 09:30 Urine Bilirubin NEGATIVE (NEGATIVE) 09/22/22 09:30 Urine Urobilinogen 0.2 (NORMAL) E.U./dL (NORMAL) 09/22/22 09:30 Ur Leukocyte Esterase NEGATIVE (NEGATIVE) 09/22/22 09:30 Urine RBC 0-5 /HPF (0-5) 09/22/22 09:30 Urine WBC 0-3 /HPF (0-3) 09/22/22 09:30 Ur Squamous Epith Cells NONE SEEN (<= Few) 09/22/22 09:30 Urine Bacteria None Seen /HPF (None Seen) 09/22/22 09:30 Urine Casts 3-5 Hyaline Casts /LPF 09/22/22 09:30 Ur Microscopic Review INDICATED 09/22/22 09:30 Urine Culture Comments NOT INDICATED 09/22/22 09:30 Nasal Adenovirus (PCR) NOT DETECTED 09/22/22 10:48 Nasal B. parapertussis DNA (PCR) NOT DETECTED 09/22/22 10:48 Nasal Coronavir 229E PCR NOT DETECTED 09/22/22 10:48 Nasal Coronavir HKU1 PCR NOT DETECTED 09/22/22 10:48 Nasal Coronavir NL63 PCR NOT DETECTED 09/22/22 10:48 Nasal Coronavir OC43 PCR NOT DETECTED 09/22/22 10:48 Nasal Enterovir/Rhinovir PCR NOT DETECTED 09/22/22 10:48 Nasal Influenza B PCR NOT DETECTED 09/22/22 10:48 Nasal Influenza A PCR NOT DETECTED 09/22/22 10:48 Nasal Parainfluen 1 PCR NOT DETECTED 09/22/22 10:48 Nasal Parainfluen 2 PCR NOT DETECTED 09/22/22 10:48 Nasal Parainfluen 3 PCR NOT DETECTED 09/22/22 10:48 Nasal Parainfluen 4 PCR NOT DETECTED 09/22/22 10:48 Nasal RSV (PCR) NOT DETECTED 09/22/22 10:48 Nasal Screen MRSA (PCR) NEGATIVE (NEGATIVE) 09/22/22 12:00 Nasal B.pertussis DNA PCR NOT DETECTED 09/22/22 10:48 Nasal C.pneumoniae (PCR) NOT DETECTED 09/22/22 10:48 Rafa Human Metapneumo PCR NOT DETECTED 09/22/22 10:48 Nasal M.pneumoniae (PCR) NOT DETECTED 09/22/22 10:48 Nasal SARS-CoV-2 (PCR) NOT DETECTED 09/22/22 10:48 Salicylates < 6.0 mg/dL 09/22/22 08:46 Urine Opiates Screen NEGATIVE (NEGATIVE) 09/22/22 09:30 Ur Oxycodone Screen NEGATIVE (NEGATIVE) 09/22/22 09:30 Urine Methadone Screen NEGATIVE (NEGATIVE) 09/22/22 09:30 Ur Propoxyphene Screen NEGATIVE (NEGATIVE) 09/22/22 09:30 Acetaminophen < 10 ug/mL (10-30) L 09/22/22 08:46 Ur Barbiturates Screen NEGATIVE (NEGATIVE) 09/22/22 09:30 Ur Tricyclics Screen NEGATIVE (NEGATIVE) 09/22/22 09:30 Ur Phencyclidine Scrn NEGATIVE (NEGATIVE) 09/22/22 09:30 Ur Amphetamine Screen NEGATIVE (NEGATIVE) 09/22/22 09:30 U Methamphetamines Scrn NEGATIVE (NEGATIVE) 09/22/22 09:30 U Benzodiazepines Scrn NEGATIVE (NEGATIVE) 09/22/22 09:30 Urine Cocaine Screen NEGATIVE (NEGATIVE) 09/22/22 09:30 U Cannabinoids Screen NEGATIVE (NEGATIVE) 09/22/22 09:30 Ethyl Alcohol 55.8 mg/dL 09/22/22 08:46 Serum Ketones NEGATIVE (NEGATIVE) 09/22/22 08:46
[2022-10-11] MEDS: FOLIC ACID 1 MG TABLET PO SCH (09:17)
[2022-10-11] MEDS: PRENATAL VITAMIN TABLET PO SCH (09:18)
[2022-10-11] MEDS: THIAMINE 100 MG TABLET PO SCH (09:36)
[2022-10-11] MEDS: FAMOTIDINE 20 MG TABLET PO SCH ×2 (09:36→21:46)
[2022-10-11] MEDS: CYANOCOBALAMIN 500 MCG TABLET PO SCH (09:36)
[2022-10-11] MEDS: QUEtiapine 25 MG TABLET PO SCH ×2 (11:51→18:06)
--- NOTE | 2022-10-11 13:04 | PROVIDER PROGRESS NOTE ---
Assessment/Plan - Problem List (1) Wernicke-Korsakoff psychosis Assessment/Plan: Alcohol use was excessive and had been using for decades. 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 Has received adequate thiamine replacement. He remains confused: He cannot remember where he is, is "firing" staff. He had a [facility] cognitive eval done 10/06/22, by OT and he scored 9/30, indicating severe cognitive impairment. He is able to ambulate 300 feet w/ his walker and therefore does not need a SNF for rehab after Dch from this hospital stay. After he displayed some aggressive behavior, we started Seroquel and also Trazadone. Combination is improving his overall cooperativeness Plan: Continue thiamine 100 mg po daily Continue Seroquel at the lower dose of 12.5 mg given at 1200 and 1800 Will increase nightime Trazadone from 75 mg to 100 mg scheduled, since he was still not asleep through the night. Remain off the Lorazepam as it had no effect. We will check his ammonia level intermittently, use Lactulose if it is indicated He does not need a SNF for rehab after Dch from this hospital stay. Patient is unable to make his own decisions, based on the [facility] cognitive evaluation. He should no longer live alone and without caregivers. Social work and our rn first assist have been in contact with his 2 daughters. The daughters do want him to be permanently placed in a NH, in a memory care center for long-term care. (2) Circadian rhythm sleep disturbance Assessment/Plan: After he was not obtunded and was transferred out of ICU, we have noticed that he has Sundowning starting around 1500. He also has insomnia and was awake most of the night. On 09/30, we started him on Seroquel 25 mg twice daily, due to the Sundowning which helped somewhat. He got oral Lorazepam at bedtime, which gave him no benefit, and he was still awake through the night. Trazodone was started at 50 mg, then 75 mg last night, and there was slightly longer sleep, but not through the night Plan: Remian off Lorazepam dosing, since the NIH expert panel concluded there is no effectiveness Will continue a low dose of Seroquel for the treatment of agitation As per up-to-date,Trazodone nightly is recommended and will continue that and increase from 75 mg to 100 mg, and will dose it at 2200 Also recommended is daytime bright light therapy and increased social interactions, which has been ordered. (3) No able caregiver in household Assessment/Plan: Because of his severe cognitive impairment, he is unable to take care of himself at home, and prior to this he had lived alone. He has had 2 admissions for being found outside, confused and had rhabdomyolysis (this time with hypothermia). Plan: He has met his goals regarding PT and OT rehab, and is able to ambulate 300 feet, therefore is not a candidate to go to a SNF. Unfortunately, when he takes a break and put his walker aside, he cannot remember to restart walking using the walker, and "furniture surfs". He is unable to make his own decisions. Therefore the 2 daughters are working with our Interface Developer to find him permanent placement in a memory care aracelis atri unit (4) B12 and Folate deficiency Very likely due to poor diet during years of alcohol abuse Plan: B12 supplement and folic acid supplement daily ordered (5) Alcohol abuse Assessment/Plan: His withdrawal resolved Plan: Continue him on oral thiamine, vitamin and nutritional support - Current Meds Current Meds: Current Medications Generic Name Dose Route Start Last Admin Trade Name Aurelio PRN Reason Stop Dose Admin Acetaminophen 650 mg 09/22/22 11:23 10/02/22 04:25 Acetaminophen 325 Mg Tablet PO 650 mg Q4HR PRN Administration Pain 1 to 4, or Fever Bacitracin 1 packet 09/22/22 14:19 09/22/22 16:11 Bacitracin Zinc Oint 1 Packet TOP 1 packet PRN PRN Administration Skin Care Cyanocobalamin 500 mcg 09/25/22 09:00 10/11/22 09:36 Cyanocobalamin 500 Mcg Tablet PO Not Given DAILY LAZ Famotidine 20 mg 09/30/22 21:00 10/11/22 09:36 Famotidine 20 Mg Tablet PO Not Given BID LAZ Folic Acid 1 mg 10/08/22 12:00 10/11/22 09:17 Folic Acid 1 Mg Tablet PO 1 mg DAILY LAZ Administration Mineral Oil 1 applic 09/26/22 20:39 09/27/22 04:01 Min Oil/Dimethicon/Coconut Oil 92 Gm Tube TOP 1 applic PRN PRN Administration Skin Care Multi-Ingredient Lotion 3 ml 09/27/22 08:59 09/27/22 14:53 Parab/Cet Alc/Stryl Alc/Pg/Sls 473 Ml Bottle TOP 1 applic TID PRN Administration Acne Multivit/Folic Acid/Iron 1 tab 09/25/22 08:00 10/11/22 09:18 Vitamin Tablet PO 1 tab DAILYWM LAZ Administration Quetiapine Fumarate 12.5 mg 10/09/22 12:00 10/11/22 11:51 Quetiapine 25 Mg Tablet PO 12.5 mg 1200,1800 LAZ Administration Thiamine HCl 100 mg 09/28/22 09:00 10/11/22 09:36 Thiamine 100 Mg Tablet PO Not Given DAILY LAZ - Lab Result Fish Bone Diagrams: 10/01/22 05:25 09/30/22 04:45 - Additional Planning My Orders: My Active Orders 10/11/22 20:00 traZODone [Desyrel] 100 mg PO 1999 Subjective - Subjective Patient Reports: Resting Comfortably Nursing Reports: Other (He is interested in walking in the hallway, but does not remember to use his walker or a cane or put on his mask) Objective Vital Signs: Vital Signs - 24 hr 10/10/22 10/11/22 16:26 08:29 Temperature 36.5 C 36.4 C L Heart Rate [ 86 77 Brachial] Respiratory 18 18 Rate Blood Pressure 147/86 H 127/84 H [Right Brachial artery] O2 Saturation 100 98 Oxygen O2 Source Room air I&O (Last 24 Hrs): Intake and Output Totals x24h 10/09/22 10/10/22 10/11/22 23:59 23:59 23:59 Intake Total 1330 720 360 Balance 1330 720 360 General: Alert HEENT: Mucous membr. moist/pink Neck: Supple Neuro: Alert, Disoriented, Non Focal Cardiovascular: Regular rate Respiratory: No respiratory distress Extremities: No clubbing, No edema, No tenderness/swelling - Results Results: Laboratory Results WBC 6.5 x10^3/uL (4.8-10.8) 10/01/22 05:25 RBC 4.93 10^6/uL (4.70-6.10) 10/01/22 05:25 Hgb 15.7 g/dL (14.0-18.0) 10/01/22 05:25 Hct 47.8 % (42.0-52.0) 10/01/22 05:25 MCV 97.0 fL (80.0-94.0) H 10/01/22 05:25 MCH 31.8 pg (27.0-31.0) H 10/01/22 05:25 MCHC 32.8 g/dL (32.0-36.0) 10/01/22 05:25 RDW 14.0 % (12.0-15.0) 10/01/22 05:25 Plt Count 218 10^3/uL (130-450) 10/01/22 05:25 MPV 10.0 fL (7.4-11.4) 10/01/22 05:25 Neut # (Auto) 4.2 10^3/uL (1.5-6.6) 10/01/22 05:25 Lymph # (Auto) 1.0 10^3/uL (1.5-3.5) L 10/01/22 05:25 [place] # (Auto) 1.0 10^3/uL (0.0-1.0) 10/01/22 05:25 Eos # (Auto) 0.3 10^3/uL (0.0-0.7) 10/01/22 05:25 Baso # (Auto) 0.1 10^3/uL (0.0-0.1) 10/01/22 05:25 Absolute Nucleated RBC 0.00 x10^3/uL 10/01/22 05:25 Nucleated RBC % 0.0 /100WBC 10/01/22 05:25 PT 11.3 secs (9.9-12.6) 09/22/22 08:46 INR 1.0 (0.8-1.2) 09/22/22 08:46 VBG pH 7.449 (7.31-7.41) H 09/27/22 04:20 Ionized Calcium 1.18 mmol/L (1.15-1.33) 09/27/22 04:20 Sodium 138 mmol/L (135-145) 09/30/22 04:45 Potassium 3.6 mmol/L (3.5-5.0) 09/30/22 04:45 Chloride 109 mmol/L (101-111) 09/30/22 04:45 Carbon Dioxide 24 mmol/L (21-32) 09/30/22 04:45 Anion Gap 5.0 (6-13) L 09/30/22 04:45 BUN 16 mg/dL (6-20) 09/30/22 04:45 Creatinine 0.7 mg/dL (0.6-1.2) 09/30/22 04:45 Estimated GFR (MDRD) 109 (>89) 09/30/22 04:45 Glucose 106 mg/dL (70-100) H 09/30/22 04:45 POC Whole Bld Glucose 205 mg/dL (70 - 100) H 09/22/22 08:50 Calcium 9.0 mg/dL (8.5-10.3) 09/30/22 04:45 Phosphorus 3.1 mg/dL (2.5-4.6) 09/27/22 04:20 Magnesium 1.8 mg/dL (1.7-2.8) 09/28/22 04:29 Total Bilirubin 1.2 mg/dL (0.2-1.0) H 09/27/22 08:40 Direct Bilirubin 0.2 mg/dL (0.1-0.5) 09/23/22 04:20 AST 22 IU/L (10-42) 09/27/22 08:40 ALT 24 IU/L (10-60) 09/27/22 08:40 Alkaline Phosphatase 54 IU/L (42-121) 09/27/22 08:40 Ammonia 16.5 umol/L (7-35) 09/27/22 08:40 Total Creatine Kinase 190 IU/L (22-269) 09/26/22 04:25 Total Protein 6.9 g/dL (6.7-8.2) 09/27/22 08:40 Albumin 3.4 g/dL (3.2-5.5) 09/27/22 08:40 Globulin 3.5 g/dL (2.1-4.2) 09/27/22 08:40 Albumin/Globulin Ratio 1.0 (1.0-2.2) 09/27/22 08:40 Lipase 37 U/L (22-51) 09/22/22 08:46 Vitamin B12 109 pg/mL (180-914) L 09/23/22 15:47 Folate 4.35 ng/mL (5.90 - >24.8) L 09/23/22 15:47 TSH 1.47 uIU/mL (0.34-5.60) 09/22/22 08:46 Urine Color YELLOW 09/22/22 09:30 Urine Clarity CLEAR (CLEAR) 09/22/22 09:30 Urine pH 5.5 PH (5.0-7.5) 09/22/22 09:30 Ur Specific [place] 1.020 (1.002-1.030) 09/22/22 09:30 Urine Protein NEGATIVE mg/dL (NEGATIVE) 09/22/22 09:30 Urine Glucose (UA) NEGATIVE mg/dL (NEGATIVE) 09/22/22 09:30 Urine Ketones TRACE mg/dL (NEGATIVE) 09/22/22 09:30 Urine Occult Blood SMALL (NEGATIVE) H 09/22/22 09:30 Urine Nitrite NEGATIVE (NEGATIVE) 09/22/22 09:30 Urine Bilirubin NEGATIVE (NEGATIVE) 09/22/22 09:30 Urine Urobilinogen 0.2 (NORMAL) E.U./dL (NORMAL) 09/22/22 09:30 Ur Leukocyte Esterase NEGATIVE (NEGATIVE) 09/22/22 09:30 Urine RBC 0-5 /HPF (0-5) 09/22/22 09:30 Urine WBC 0-3 /HPF (0-3) 09/22/22 09:30 Ur Squamous Epith Cells NONE SEEN (<= Few) 09/22/22 09:30 Urine Bacteria None Seen /HPF (None Seen) 09/22/22 09:30 Urine Casts 3-5 Hyaline Casts /LPF 09/22/22 09:30 Ur Microscopic Review INDICATED 09/22/22 09:30 Urine Culture Comments NOT INDICATED 09/22/22 09:30 Nasal Adenovirus (PCR) NOT DETECTED 09/22/22 10:48 Nasal B. parapertussis DNA (PCR) NOT DETECTED 09/22/22 10:48 Nasal Coronavir 229E PCR NOT DETECTED 09/22/22 10:48 Nasal Coronavir HKU1 PCR NOT DETECTED 09/22/22 10:48 Nasal Coronavir NL63 PCR NOT DETECTED 09/22/22 10:48 Nasal Coronavir OC43 PCR NOT DETECTED 09/22/22 10:48 Nasal Enterovir/Rhinovir PCR NOT DETECTED 09/22/22 10:48 Nasal Influenza B PCR NOT DETECTED 09/22/22 10:48 Nasal Influenza A PCR NOT DETECTED 09/22/22 10:48 Nasal Parainfluen 1 PCR NOT DETECTED 09/22/22 10:48 Nasal Parainfluen 2 PCR NOT DETECTED 09/22/22 10:48 Nasal Parainfluen 3 PCR NOT DETECTED 09/22/22 10:48 Nasal Parainfluen 4 PCR NOT DETECTED 09/22/22 10:48 Nasal RSV (PCR) NOT DETECTED 09/22/22 10:48 Nasal Screen MRSA (PCR) NEGATIVE (NEGATIVE) 09/22/22 12:00 Nasal B.pertussis DNA PCR NOT DETECTED 09/22/22 10:48 Nasal C.pneumoniae (PCR) NOT DETECTED 09/22/22 10:48 Rafa Human Metapneumo PCR NOT DETECTED 09/22/22 10:48 Nasal M.pneumoniae (PCR) NOT DETECTED 09/22/22 10:48 Nasal SARS-CoV-2 (PCR) NOT DETECTED 09/22/22 10:48 Salicylates < 6.0 mg/dL 09/22/22 08:46 Urine Opiates Screen NEGATIVE (NEGATIVE) 09/22/22 09:30 Ur Oxycodone Screen NEGATIVE (NEGATIVE) 09/22/22 09:30 Urine Methadone Screen NEGATIVE (NEGATIVE) 09/22/22 09:30 Ur Propoxyphene Screen NEGATIVE (NEGATIVE) 09/22/22 09:30 Acetaminophen < 10 ug/mL (10-30) L 09/22/22 08:46 Ur Barbiturates Screen NEGATIVE (NEGATIVE) 09/22/22 09:30 Ur Tricyclics Screen NEGATIVE (NEGATIVE) 09/22/22 09:30 Ur Phencyclidine Scrn NEGATIVE (NEGATIVE) 09/22/22 09:30 Ur Amphetamine Screen NEGATIVE (NEGATIVE) 09/22/22 09:30 U Methamphetamines Scrn NEGATIVE (NEGATIVE) 09/22/22 09:30 U Benzodiazepines Scrn NEGATIVE (NEGATIVE) 09/22/22 09:30 Urine Cocaine Screen NEGATIVE (NEGATIVE) 09/22/22 09:30 U Cannabinoids Screen NEGATIVE (NEGATIVE) 09/22/22 09:30 Ethyl Alcohol 55.8 mg/dL 09/22/22 08:46 Serum Ketones NEGATIVE (NEGATIVE) 09/22/22 08:46
[2022-10-11] MEDS ORDERED: traZODone 50 MG TABLET PO SCH (20:00)
[2022-10-11] MEDS: traZODone 50 MG TABLET PO SCH (21:46)
[2022-10-12 06:00] LABS: CALCIUM 9.2 mg/dL (8.5-10.3); CREATININE 0.7 mg/dL (0.6-1.2); POTASSIUM 3.9 mmol/L (3.5-5.0)
[2022-10-12] MEDS: FAMOTIDINE 20 MG TABLET PO SCH ×2 (09:30→21:47)
[2022-10-12] MEDS: PRENATAL VITAMIN TABLET PO SCH (09:30)
[2022-10-12] MEDS: FOLIC ACID 1 MG TABLET PO SCH (09:30)
[2022-10-12] MEDS: CYANOCOBALAMIN 500 MCG TABLET PO SCH (09:30)
[2022-10-12] MEDS: THIAMINE 100 MG TABLET PO SCH (09:30)
[2022-10-12] MEDS: QUEtiapine 25 MG TABLET PO SCH ×2 (11:35→18:04)
--- NOTE | 2022-10-12 17:20 | PROVIDER PROGRESS NOTE ---
Subjective - Prog Note Date Prog Note Date: 10/12/22 Prog Note Time: 17:17 - Subjective Subjective: no new complaints . no cp, no cough, occasionally grumpy Current Medications - Current Medications Current Medications: Active Medications Acetaminophen (Acetaminophen 325 Mg Tablet) 650 mg PO Q4HR PRN PRN Reason: Pain 1 to 4, or Fever Last Admin: 10/02/22 04:25 Dose: 650 mg Bacitracin (Bacitracin Zinc Oint 1 Packet) 1 packet TOP PRN PRN PRN Reason: Skin Care Last Admin: 09/22/22 16:11 Dose: 1 packet Cyanocobalamin (Cyanocobalamin 500 Mcg Tablet) 500 mcg PO DAILY [facility] Last Admin: 10/12/22 09:30 Dose: 500 mcg Famotidine (Famotidine 20 Mg Tablet) 20 mg PO BID [facility] Last Admin: 10/12/22 09:30 Dose: 20 mg Folic Acid (Folic Acid 1 Mg Tablet) 1 mg PO DAILY [facility] Last Admin: 10/12/22 09:30 Dose: 1 mg Mineral Oil (Min Oil/Dimethicon/Coconut Oil 92 Gm Tube) 1 applic TOP PRN PRN PRN Reason: Skin Care Last Admin: 09/27/22 04:01 Dose: 1 applic Multi-Ingredient Lotion (Parab/Cet Alc/Stryl Alc/Pg/Sls 473 Ml Bottle) 3 ml TOP TID PRN PRN Reason: Acne Last Admin: 09/27/22 14:53 Dose: 1 applic Multivit/Folic Acid/Iron ( Vitamin Tablet) 1 tab PO DAILYWM [facility] Last Admin: 10/12/22 09:30 Dose: 1 tab Quetiapine Fumarate (Quetiapine 25 Mg Tablet) 12.5 mg PO 1200,1800 [facility] Last Admin: 10/12/22 11:35 Dose: 12.5 mg Thiamine HCl (Thiamine 100 Mg Tablet) 100 mg PO DAILY [facility] Last Admin: 10/12/22 09:30 Dose: 100 mg Trazodone HCl (Trazodone 50 Mg Tablet) 100 mg PO 2200 [facility] Last Admin: 10/11/22 21:46 Dose: 100 mg No Known Home Medications 09/30/22 Objective - Vital Signs/Intake & Output Reviewed Vital Signs: Yes Vital Signs: Vital Signs x48h Temp Pulse Resp BP Pulse Ox 10/12/22 11:21 36.4 C L 67 18 125/77 99 Intake & Output: Intake & Output 10/09/22 10/10/22 10/11/22 10/12/22 23:59 23:59 23:59 23:59 Intake Total 1330 720 680 740 Balance 1330 720 680 740 - Objective General Appearance: positive: Alert, Other (disheveled , disoriented, cranky, verbal man) Eyes Bilateral: positive: PERRL, EOMI ENT: positive: No signs of dehydration Neck: positive: No JVD. negative: Stiff neck Respiratory: positive: No respiratory distress. negative: Wheezes, Rales, Rhonchi Cardiovascular: positive: Regular rate & rhythm Abdomen: positive: Non-tender, No organomegaly, Nml bowel sounds, No distention Skin: positive: Warm, Dry. negative: Pallor Extremities: positive: Full ROM, No pedal edema Neurologic/Psychiatric: positive: CN's nml (2-12), Other (Ambulating 120 feet, and only needs 1 seated rest break to do that. Able to put his patient gown on. Needs minimal cueing for oral hygiene at the sink. Gets tired and has to sit down or lean back against the wall sometimes. Able to brush his own hair. But he is very forgetful.). negative: Motor nml (crosses his legs w walking sometimes but doesn't fall) - Lab Results Fish Bones: 10/01/22 05:25 10/12/22 05:35 Other Labs: Lab Results x24hrs 10/12/22 10/12/22 Range/Units 05:35 05:35 Sodium 140 (135-145) mmol/L Potassium 3.9 (3.5-5.0) mmol/L Chloride 106 (101-111) mmol/L Carbon Dioxide 26 (21-32) mmol/L Anion Gap 8.0 (6-13) BUN 17 (6-20) mg/dL Creatinine 0.7 (0.6-1.2) mg/dL Estimated GFR (MDRD) 109 (>89) Glucose 107 H (70-100) mg/dL Calcium 9.2 (8.5-10.3) mg/dL Ammonia 24.1 (7-35) umol/L Assessment/Plan - Problem List (1) Alcohol withdrawal Impression: Alcohol use was excessive and had been using for decades. 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 Has received adequate thiamine replacement. He remains confused: He cannot remember where he is, is "firing" staff. He had a [facility] cognitive eval done 10/06/22, by OT and he scored 9/30, indicating severe cognitive impairment. He is able to ambulate 300 feet w/ his walker and therefore does not need a SNF for rehab after Dch from this hospital stay. After he displayed some aggressive behavior, we started Seroquel and also Trazadone. Combination is improving his overall cooperativeness Plan: Continue thiamine 100 mg po daily Continue Seroquel at the lower dose of 12.5 mg given at 1200 and 1800 On increased nightime Trazadone from 75 mg to 100 mg scheduled, since he was still not asleep through the night. Remain off the Lorazepam as it had no effect. We will check his ammonia level intermittently, use Lactulose if it is indicated He does not need a SNF for rehab after Dch from this hospital stay but does need a memory care facility or structure Patient is unable to make his own decisions, based on the [facility] cognitive evaluation. He should no longer live alone and without caregivers. Social work and our truck driver's offsider have been in contact with his 2 daughters. The daughters do want him to be permanently placed in a NH, in a memory care center for long-term care. (2) Circadian rhythm sleep disturbance Assessment/Plan: After he was not obtunded and was transferred out of ICU, we have noticed that he has Sundowning starting around 1500. He also has insomnia and was awake most of the night. On 09/30, we started him on Seroquel 25 mg twice daily, due to the Sundowning which helped somewhat. He got oral Lorazepam at bedtime, which gave him no benefit, and he was still awake through the night. Trazodone was started at 50 mg, then 75 mg last night, and there was slightly longer sleep, but not through the night Plan: Remian off Lorazepam dosing, since the NIH expert panel concluded there is no effectiveness Will continue a low dose of Seroquel for the treatment of agitation As per up-to-date,Trazodone nightly is recommended and will continue that and increase from 75 mg to 100 mg, and will dose it at 2200 Also recommended is daytime bright light therapy and increased social interactions, which has been ordered. (3) No able caregiver in household Assessment/Plan: Because of his severe cognitive impairment, he is unable to take care of himself at home, and prior to this he had lived alone. He has had 2 admissions for being found outside, confused and had rhabdomyolysis (this time with hypothermia). Plan: He has met his goals regarding PT and OT rehab, and is able to ambulate 300 feet, therefore is not a candidate to go to a SNF. Unfortunately, when he takes a break and put his walker aside, he cannot remember to restart walking using the walker, and "furniture surfs". He is unable to make his own decisions. Therefore the 2 daughters are working with our Php Software Engineer to find him permanent placement in a memory care geriatric unit (4) B12 and Folate deficiency Very likely due to poor diet during years of alcohol abuse Plan: B12 supplement and folic acid supplement daily ordered (5) Alcohol abuse Assessment/Plan: His withdrawal resolved Plan: Continue him on oral thiamine, vitamin and nutritional support Overall, in today's encounter, there are no new changes. No new findings. No new orders.
[2022-10-12] MEDS: traZODone 50 MG TABLET PO SCH (21:47)
[2022-10-13] MEDS: FOLIC ACID 1 MG TABLET PO SCH (08:12)
[2022-10-13] MEDS: THIAMINE 100 MG TABLET PO SCH (08:12)
[2022-10-13] MEDS: CYANOCOBALAMIN 500 MCG TABLET PO SCH (08:12)
[2022-10-13] MEDS: FAMOTIDINE 20 MG TABLET PO SCH ×2 (08:12→22:27)
[2022-10-13] MEDS: PRENATAL VITAMIN TABLET PO SCH (08:12)
[2022-10-13] MEDS: QUEtiapine 25 MG TABLET PO SCH ×2 (11:55→17:40)
--- NOTE | 2022-10-13 14:38 | PROVIDER PROGRESS NOTE ---
Subjective - Prog Note Date Prog Note Date: 10/13/22 Prog Note Time: 14:32 - Subjective Subjective: Interesting gentleman. He is exceedingly critical of everything. From the food, to the floor color, to the color of the scrubs worn by the LACTATION COORDINATOR. But he d oes not have any new specific complaints for him. Denies cough, chest pain, shortness of breath. Current Medications - Current Medications Current Medications: Active Medications Acetaminophen (Acetaminophen 325 Mg Tablet) 650 mg PO Q4HR PRN PRN Reason: Pain 1 to 4, or Fever Last Admin: 10/02/22 04:25 Dose: 650 mg Bacitracin (Bacitracin Zinc Oint 1 Packet) 1 packet TOP PRN PRN PRN Reason: Skin Care Last Admin: 09/22/22 16:11 Dose: 1 packet Cyanocobalamin (Cyanocobalamin 500 Mcg Tablet) 500 mcg PO DAILY [facility] Last Admin: 10/13/22 08:12 Dose: 500 mcg Famotidine (Famotidine 20 Mg Tablet) 20 mg PO BID [facility] Last Admin: 10/13/22 08:12 Dose: 20 mg Folic Acid (Folic Acid 1 Mg Tablet) 1 mg PO DAILY [facility] Last Admin: 10/13/22 08:12 Dose: 1 mg Mineral Oil (Min Oil/Dimethicon/Coconut Oil 92 Gm Tube) 1 applic TOP PRN PRN PRN Reason: Skin Care Last Admin: 09/27/22 04:01 Dose: 1 applic Multi-Ingredient Lotion (Parab/Cet Alc/Stryl Alc/Pg/Sls 473 Ml Bottle) 3 ml TOP TID PRN PRN Reason: Acne Last Admin: 09/27/22 14:53 Dose: 1 applic Multivit/Folic Acid/Iron ( Vitamin Tablet) 1 tab PO DAILYWM [facility] Last Admin: 10/13/22 08:12 Dose: 1 tab Quetiapine Fumarate (Quetiapine 25 Mg Tablet) 12.5 mg PO 1200,1800 [facility] Last Admin: 10/13/22 11:55 Dose: 12.5 mg Thiamine HCl (Thiamine 100 Mg Tablet) 100 mg PO DAILY [facility] Last Admin: 10/13/22 08:12 Dose: 100 mg Trazodone HCl (Trazodone 50 Mg Tablet) 100 mg PO 2200 [facility] Last Admin: 10/12/22 21:47 Dose: 100 mg No Known Home Medications 09/30/22 Objective - Vital Signs/Intake & Output Reviewed Vital Signs: Yes Intake & Output: Intake & Output 10/10/22 10/11/22 10/12/22 10/13/22 23:59 23:59 23:59 23:59 Intake Total 101 746 8905 480 Balance 720 665 9205 480 - Objective General Appearance: positive: Alert, Other (Short statured, bearded elderly ge ntleman, appears comfortable in bed) Eyes Bilateral: positive: PERRL, EOMI ENT: positive: No signs of dehydration Neck: positive: No JVD. negative: Stiff neck Respiratory: positive: No respiratory distress. negative: Wheezes, Rales, Rhonchi Cardiovascular: positive: Regular rate & rhythm Abdomen: positive: Non-tender, No organomegaly, Nml bowel sounds, No distention Skin: positive: Warm, Dry. negative: Pallor Extremities: positive: Full ROM, No pedal edema Neurologic/Psychiatric: positive: CN's nml (2-12), Motor nml (up and walking in room, walks around hallways) - Lab Results Fish Bones: 10/01/22 05:25 10/12/22 05:35 Assessment/Plan - Problem List (1) Alcohol withdrawal Impression: Alcohol use was excessive and had been using for decades. 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 Has received adequate thiamine replacement. He remains confused: He cannot remember where he is, is "firing" staff. He had a [facility] cognitive eval done 10/06/22, by OT and he scored 9/30, indicating severe cognitive impairment. He is able to ambulate 300 feet w/ his walker and therefore does not need a SNF for rehab after Dch from this hospital stay. After he displayed some aggressive behavior, we started Seroquel and also Trazadone. Combination is improving his overall cooperativeness Plan: Continue thiamine 100 mg po daily Continue Seroquel at the lower dose of 12.5 mg given at 1200 and 1800 On increased nightime Trazadone from 75 mg to 100 mg scheduled, since he was still not asleep through the night. Remain off the Lorazepam as it had no effect. We will check his ammonia level intermittently, use Lactulose if it is indicated He does not need a SNF for rehab after Dch from this hospital stay but does need a memory care facility or structure Patient is unable to make his own decisions, based on the [facility] cognitive evaluation. He should no longer live alone and without caregivers. Social work and our ladler have been in contact with his 2 daughters. The daughters do want him to be permanently placed in a NH, in a memory care center for long-term care. (2) Circadian rhythm sleep disturbance Assessment/Plan: After he was not obtunded and was transferred out of ICU, we have noticed that he has Sundowning starting around 1500. He also has insomnia and was awake most of the night. On 09/30, we started him on Seroquel 25 mg twice daily, due to the Sundowning which helped somewhat. He got oral Lorazepam at bedtime, which gave him no benefit, and he was still awake through the night. Trazodone was started at 50 mg, then 75 mg last night, and there was slightly longer sleep, but not through the night Plan: Remian off Lorazepam dosing, since the NIH expert panel concluded there is no effectiveness Will continue a low dose of Seroquel for the treatment of agitation As per up-to-date,Trazodone nightly is recommended and will continue that and increase from 75 mg to 100 mg, and will dose it at 2200 Also recommended is daytime bright light therapy and increased social interactions, which has been ordered. (3) No able caregiver in household Assessment/Plan: Because of his severe cognitive impairment, he is unable to take care of himself at home, and prior to this he had lived alone. He has had 2 admissions for being found outside, confused and had rhabdomyolysis (this time with hypothermia). Plan: He has met his goals regarding PT and OT rehab, and is able to ambulate 300 feet, therefore is not a candidate to go to a SNF. Unfortunately, when he takes a break and put his walker aside, he cannot remember to restart walking using the walker, and "furniture surfs". He is unable to make his own decisions. Therefore the 2 daughters are working with our [employer] Technician to find him permanent placement in a memory care geriatric unit (4) B12 and Folate deficiency Very likely due to poor diet during years of alcohol abuse Plan: B12 supplement and folic acid supplement daily ordered (5) Alcohol abuse Assessment/Plan: His withdrawal resolved Plan: Continue him on oral thiamine, vitamin and nutritional support Overall, again, in today's encounter, there are no new changes. No new findings. No new orders.
[2022-10-13] MEDS: traZODone 50 MG TABLET PO SCH (22:27)
[2022-10-14] MEDS: CYANOCOBALAMIN 500 MCG TABLET PO SCH (08:08)
[2022-10-14] MEDS: PRENATAL VITAMIN TABLET PO SCH (08:08)
[2022-10-14] MEDS: FAMOTIDINE 20 MG TABLET PO SCH (08:08)
[2022-10-14] MEDS: FOLIC ACID 1 MG TABLET PO SCH (08:08)
[2022-10-14] MEDS: THIAMINE 100 MG TABLET PO SCH (08:08)
[2022-10-14] MEDS ORDERED: DOCUSATE SODIUM 250 MG CAPSULE PO SCH (09:00)
--- NOTE | 2022-10-14 12:09 | Discharge Plan ---
"Discharge Plan for SNF / [facility] - Discharge Plan And Transition Orders Problem Reviewed?: Yes Disposition: 03 SNF DC/Xfer Condition: Stable Allergies and Adverse Reactions: Allergies Allergy/AdvReac Type Severity Reaction Status Date / Time bee venom protein (honey bee) AdvReac Unknown Verified 06/05/19 16:00 cat dander AdvReac Respiratory Verified 06/05/19 16:01 Health Concerns: Patient has a history of alcohol abuse for many years and was a recluse, per family. He was found down on the ground in the [place], hypothermic and confused, and a passerby called 911. He presented with hypothermia, rhabdomyolysis, he went through alcohol withdrawal, and now we have established that he has severe dementia with cognitive impairment. His strength and ambulation have improved with Physical Therapy and Occupational Therapy, and he is now at his plateau, and he needs a walker to ambulate. Plan of Treatment: Discharged to a Memory Care Adult Living Facility. Care Goals: Stabilization and living in a safe environment are the goals. Assessment: Due to cognitive impairment, the patient cannot remember anything except remote events. 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 (6) B12 and Folate deficiency Due to poor diet during years of alcohol abuse (7) Circadian rhythm sleep disturbance Improved on Seroquel 25 mg twice daily for ) and Trazodone nightly. (8) No able caregiver in household Because of his severe cognitive impairment, he is unable to take care of himself at home lived alone. Medicare Certification Statement: Notify PCP of admission and forward orders to primary provider for signature. Weight on admission and: Monthly Other Notification Orders: Call PCP immediately if patient develops dyspnea, chest pain/tightness or edema. House Bowel Program: Yes Additional Bowel Program Orders: If no BM after 2 days, nurse may give M.O.M. 30ml PO PRN and/or ducolax Supp 1 [place] and/or ULYSSES 250mg P.O., and/or senna 1-2 tabs PO. On day 3 nurse may give repeat above order until residents constipation is resolved. Annual Influenza Vaccine (between Feb 18 and September 17): Yes Two-step PPD per [facility] [phone] or approved exception documents: Yes Medication Orders: PLEASE REFER TO THE DISCHARGE MEDICATION LIST. Insulin Orders?: No - Medications New Prescriptions: Skin Cleanser Comb No.44 [Cetaphil Daily Facial Cleanser] 1 ea TP DAILY #473 ml traZODone [Desyrel] 100 mg PO 2200 #60 tab Folic Acid 1 mg PO DAILY #30 tab Famotidine [Pepcid] 20 mg PO BID PRN #60 tab PRN Reason: Indigestion Pnv No.121/Iron/Folic Acid [ Multivitamin Tablet] 1 each PO DAILY #30 tablet QUEtiapine [SEROquel] 12.5 mg PO 1200,1800 #30 tab Thiamine [Vitamin B-1] 100 mg PO DAILY #30 tab Cyanocobalamin [Vitamin B-12] 500 mcg PO DAILY #30 tab - Diet Type: No added salt Texture: Regular Liquids: Thin May have monthly special meal: Yes - Therapies | Activity Activity: Activity as Tolerated Weight Bearing: Full Weight Assistance Devices: Walker Follow Up: Establish with new PCP ([facility]) after arrival at [facility]."
--- NOTE | 2022-10-14 13:06 | DISCHARGE SUMMARY ---
Discharge Summary Admit Date: 09/22/22 Discharge Date: 10/14/22 Discharging Provider: Dr Nicole Hatfield Primary Care Provider: [facility] Code Status: Do Not Attempt Resuscitation Condition at Discharge: Stable Discharge Disposition: 03 SNF DC/Xfer - HPI History of Present Illness: This is a 77-year-old white male who lives alone, and has a history of heavy alcohol abuse, and takes no meds, sees no doctor. Patient was admitted here in 2019 after he was found by his neighbors down on the sidewalk, obtunded, and he went through alcohol withdrawal. The patient was now found by passersby in [place] his [place], with outdoor temp 38 Fahrenheit last night, and unknown how long of a period of time he was outside. In the ER he was found to be hy pothermic with a temperature of 31.7 C, vital signs are stable, alcohol present on MUDS and also has potassium of 3.2, BUN/creatinine of 29/0.9, CK 915>> 1196, AST 46, ALT 24, Ammonia level 36.3. He was felt to be having active alcohol withdrawal with tremors and confusion, and was given Ativan IV twice and iv Thiamine. A bear hugger warming unit has been placed and he also received a warm [place] placed. The ED provider and I discussed this patient. He will be admitted on the Hospitalist service for treating hypothermia, alcohol withdrawal, GWENDOLYN and rhabdomyolysis. He does not have a POLST on file however his prior admission documented he wants to be a DNR. - HOSPITAL COURSE Hospital Course: (1)Rhabdomyolysis Resolved with several days of iv hydration (2) Hypothermia Resolved after 1 day of warming. (3) Alcohol withdrawal delerium The patient was combative, agitated and confused then became obtunded, after receiving IV Ativan on the [facility] alcohol withdrawal protocol. He was in the ICU for several days. As the medication was weaned down, we noticed that he was disoriented to person place and time. (4) History of Alcohol abuse Alcohol use was excessive and had been using for decades, per a nephew who visited. Patient received IV banana bag and 3 days of high dose iv THaimine, then was transitioned to oral Thiamine and Multivitamins and discharged on these. (5) Wernicke-Korsakoff psychosis After his alcohol withdrawal, he was noted to be disoriented to person place and time, and occasionally had visual hallucinations. This was felt to be secondary to chronic alcohol abuse. He would have sundowning starting at 3 PM and then had many nights of insomnia as well. He required titration of Seroquel to treat the sundowning and an evening Trazodone dose increased, until it was successful to manage the insomnia (6) Combined B12 and Folate deficiency Due to poor diet during years of alcohol abuse. He was kept on B12 supplement and folate supplements daily. (7) Circadian rhythm sleep disturbance This sl;owly improved on Seroquel given twice daily for Sundowning, and Trazodone given nightly. (8) No able caregiver in household Because of his severe cognitive impairment, he is unable to take care of himself at home, and he previously lived alone. A relative became his DPOA and was able to provide our social workers with direction. He was eventually discharged to a memory care assisted living facility permanently. - ALLERGIES Allergies/Adverse Reactions: Allergies Allergy/AdvReac Type Severity Reaction Status Date / Time bee venom protein (honey bee) AdvReac Unknown Verified 06/05/19 16:00 cat dander AdvReac Respiratory Verified 06/05/19 16:01 - MEDICATIONS Home Medications: Ambulatory Orders Medication Instructions Recorded Confirmed Cyanocobalamin [Vitamin B-12] 500 mcg PO DAILY #30 tab 10/14/22 Famotidine [Pepcid] 20 mg PO BID PRN #60 tab 10/14/22 Folic Acid 1 mg PO DAILY #30 tab 10/14/22 Pnv No.121/Iron/Folic Acid 1 each PO DAILY #30 tablet 10/14/22 [ Multivitamin Tablet] QUEtiapine [SEROquel] 12.5 mg PO 1200,1800 #30 tab 10/14/22 Skin Cleanser Comb No.44 [Cetaphil 1 ea TP DAILY #473 ml 10/14/22 Daily Facial Cleanser] Thiamine [Vitamin B-1] 100 mg PO DAILY #30 tab 10/14/22 traZODone [Desyrel] 100 mg PO 2200 #60 tab 10/14/22 - PHYSICAL EXAM AT DISCHARGE General Appearance: positive: No acute distress, Alert Eyes Bilateral: positive: Normal inspection, EOMI ENT: positive: ENT inspection nml, No signs of dehydration Neck: positive: Nml inspection, No JVD Respiratory: positive: No respiratory distress, Breath sounds nml Cardiovascular: positive: Regular rate & rhythm, No murmur Abdomen: positive: Nml bowel sounds, No distention Skin: positive: Warm, Dry Extremities: positive: Non-tender, No pedal edema Neurologic/Psychiatric: positive: Motor nml, Disoriented to person, Disoriented to place, Disoriented to time, Other (Has occasional visual hallucinations) - LABS Result Diagrams: 10/01/22 05:25 10/12/22 05:35 - DIAGNOSTIC IMAGING Diagnostic Imaging Results: Final report reviewed - FOLLOW UP Follow Up: He will have a new medical provider that we will see him by telehealth, at his new permanent living facility, memory care unit. - TIME SPENT Time Spent in Discharge (Minutes): 55
[2022-10-14] MEDS: QUEtiapine 25 MG TABLET PO SCH (13:13)
[2022-10-14 16:08] VITALS: BP 121/65
== END 2022-10-14 16:55 | DRG 923 ==
LOC: EDUNIT# → ED 08:24 → ICU 11:23 → MS2 09-29 17:26
PROVIDERS: ADMIT Internal Medicine; ATTEND Internal Medicine
DX: T68.XXXA Hypothermia, initial encounter (principal); M62.82 Rhabdomyolysis; F10.251 Alcohol dependence with alcohol-induced psychotic disorder with hallucinations; T33.831A Superficial frostbite of right toe(s), initial encounter; R41.82 Altered mental status, unspecified; F10.20 Alcohol dependence, uncomplicated; Y90.2 Blood alcohol level of 40-59 mg/100 ml; E16.2 Hypoglycemia, unspecified; S40.812A Abrasion of left upper arm, initial encounter; S40.811A Abrasion of right upper arm, initial encounter; S80.812A Abrasion, left lower leg, initial encounter; S80.811A Abrasion, right lower leg, initial encounter; F10.231 Alcohol dependence with withdrawal delirium; F10.221 Alcohol dependence with intoxication delirium; N17.9 Acute kidney failure, unspecified; I47.20 Ventricular tachycardia, unspecified; X31.XXXA Exposure to excessive natural cold, initial encounter; E53.8 Deficiency of other specified B group vitamins; G47.20 Circadian rhythm sleep disorder, unspecified type; Z78.1 Physical restraint status; Z66 Do not resuscitate; I10 Essential (primary) hypertension; Z87.891 Personal history of nicotine dependence; E86.0 Dehydration; E87.6 Hypokalemia; L70.9 Acne, unspecified; Z20.822 Contact with and (suspected) exposure to COVID-19
CPT/HCPCS: 36415; 70450; 71045; 80048; 80053; 80076; 80306; 80307; 81001; 82009; 82140; 82330; 82550; 82607; 82746; 83690; 83735; 84100; 84132; 84443; 85025; 85610; 87150; 87633; 87635; 93005; 93306; 94644; 94645; 96365; 96375; 97110; 97116; 97162; 97166; 97530; 97535; 99285; 99291; A6250; A9270; G0480; J2060; J3411; J7040; J7120; 80320; 80329; 81003; 87086

== ENCOUNTER 2022-10-14 16:58 | Outpatient (CLI) | payer MEDICARE | END 2022-10-14 23:59 | disposition home or self-care (01) | LOC: EMS 16:58 | PROVIDERS: ATTEND Internal Medicine | DX: F03.90 Unspecified dementia, unspecified severity, without behavioral disturbance, psychotic disturbance, mood disturbance, and anxiety (principal); F10.20 Alcohol dependence, uncomplicated | CPT/HCPCS: A0425; A0428 ==